=== PATIENT | female | born 1945 | race Caucasian/White ===

== ENCOUNTER 2017-02-27 14:50 | Inpatient (IN) ==
[2017-02-27] MEDS ORDERED: Naloxone 0.4 MG/ML INJ IVP PRN (17:44)
--- NOTE | 2017-02-27 17:56 | Internal Med History&Physical ---
Date of Encounter: 02/28/17 Time of Encounter: 17:54 Assessment and Plan (1) Lower gastrointestinal bleed Current visit: Yes Status: Acute Laboratory gastrointestinal bleed: 72/F Background history of atrial fibrillation, COPD, hypertension, end-stage renal disease on hemodialysis. longterm . Noted black tarry stool/axel bright red blood per rectum this morning. Was transferred to [facility]. At [facility] patient was hypotensive (systolic blood pressure 80) Received bolus of 500 mL normal saline. At the time of examination she is normotensive. Baseline hemoglobin around 10.5/hemoglobin at [facility]: 8.3 Plan: Admit as inpatient. IV PPI 40 mg every 12 hours. CBC every 6 hourly. If hemoglobin drops less than 8 then transfuse 1 packed red blood cell. Gastroenterology consulted and possible intervention tomorrow. Hold aspirin/Plavix. Hold metoprolol/Diltiazem. Patient is aware of the risk of complications of atrial fibrillation. (2) ESRD (end stage renal disease) on dialysis Current visit: No Status: Chronic Patient is known to have end-stage renal disease. She is on dialysis (Sunday/Sunday/Sunday) Dry weight: 108 kg. Plan: Patient is on different kinds of altogether 33 medications. The medications which are absolutely necessary restarted. Patient is due for her dialysis tomorrow. Case discussed with patient's communications tech. Dr. Duckworth is aware of patient's location and need for dialysis. (3) Atrial fibrillation Current visit: No Status: Acute She is known to have paroxysmal atrial fibrillation. Plan: Hold aspirin/Plavix Hold diltiazem/metoprolol. Resume amiodarone. Patient is aware of the risk of the complications secondary to atrial fibrillation. Qualifiers: Atrial fibrillation type: paroxysmal Qualified Code(s): I48.0 - Paroxysmal atrial fibrillation (4) Obesity (BMI 30-39.9) Current visit: No Status: Chronic Excess calorie (5) DVT prophylaxis Current visit: No Status: Acute Patient cannot have a pharmacological DVT prophylaxis in view of a GI bleed. EPCD. Medical decision making: This patient has a moderate to severe risk of worsening in spite of being on appropriate medication, due to underlying complicated condition Internal Medicine - H&P: HPI Chief complaint: Lower GI bleed Admitted From: Hospital to Hospital Transfer Plans for Post Hospital Care: [facility] History of present illness: PCP: [employer]: Dr Duckworth. Brief past medical history: COPD, hypertension, atrial fibrillation, anemia due to chronic kidney disease, end-stage renal disease on her dialysis (M/W/F): Dry weight: 108Kg History of present illness: Patient is a resident of a [facility] [place] [facility] [place]. The reason she is in a [place] [facility] [place] as she was not able to take care of herself. It was noted in a [place] [facility] this morning that patient had a black tarry stool. Patient also complains of a axel blood per rectum. Patient also complains of occasional dizziness. Patient denies chest pain, shortness of breath, nausea, vomiting, abdominal pain or diarrhea. [place] patient's blood pressure was in the range of 80 systolic. This was the reason she was transferred to [facility]. At [facility] she was evaluated. Her baseline hemoglobin is around 10.5. At [facility] Hb was 8.3. Patient was transferred to this hospital for further evaluation. Reason for transfer: Acute lower GI bleed. Family history: Noncontributory Past Med Surg Social Fam HX - Past Medical History Medical history: arthritis, atrial fibrillation, cancer, CHF, COPD, DVT, GERD, GI bleed, hyperlipidemia, hypertension, malignancy, osteoporosis, renal disease Psychiatric history: no psych history - Past Surgical History Surgical History: breast surgery, pacemaker/AICD, other - Social History Smoking Status: Former smoker Smokeless Tobacco Status: No Alcohol use: rarely Drug use: none - Family History Mother Living Status: Age at : 82 Cause of : diabetes Hx Family Cardiac Disorders: Yes Hx Family Respiratory Disorders: No Hx Family Cancer: Yes Hx Family GI Disorders: No Hx Family Genitourinary Disorders: No Hx Family Endocrine Disorder: No Hx Family Musculoskeletal Disorders: No Hx Family Neuromuscular Disorders: No Hx Family Neurologic Disorders: No Hx Family HEENT Disorders: No Hx Family Autoimmune Disorders: No Hx Family Reproductive Disorders: No Hx Family Psychosocial Disorders: Yes Hx Family Medical Disorders: No Internal Medicine - H&P: Meds Anastrozole [Arimidex] 1 mg PO DAILY 04/05/15 [History] Aspirin Enteric Coated [Aspirin EC] 325 mg PO DAILY 04/05/15 [History] Atorvastatin [Lipitor] 10 mg PO HS 04/05/15 [History] Calcium Acetate [Phos-LO] 2,001 mg PO TIDWM 04/05/15 [History] Cinacalcet [Sensipar] 30 mg PO DAILY 04/05/15 [History] Escitalopram [Lexapro] 10 mg PO DAILY 04/05/15 [History] Fluticasone/Salmeterol [Advair 500-50 Diskus] 1 each IH BID 04/05/15 [History] Gabapentin [Neurontin] 100 mg PO BID 04/05/15 [History] Ipratropium/Albuterol Sulfate [Combivent Respimat Inhal [place]] 1 puff IH DAILY 04/05/15 [History] Vitamin B Complex [B Complex] 1 each PO DAILY 04/05/15 [History] Sevelamer [Renvela] 800 mg PO TIDWM 09/14/15 [History] Diltiazem CD (24hr) [Cardizem CD] 120 mg PO DAILY cap.er.24h 03/01/16 [Rx] Metoprolol [Lopressor] 25 mg PO BID tablet 03/01/16 [Rx] Acetaminophen [Tylenol] 650 mg PO Q6H PRN 02/27/17 [History] Amiodarone [Cordarone] 200 mg PO DAILY 02/27/17 [History] Benzonatate [Tessalon] 100 mg PO TID PRN 02/27/17 [History] DiphenhydraMINE [Benadryl] 50 mg PO Q6H PRN 02/27/17 [History] Docusate [Colace] 200 mg PO HS 02/27/17 [History] Ferrous Sulfate 325 mg PO DAILY 02/27/17 [History] GuaiFENesin/Dextromethorphan [Tussin Dm Syrup] 5 ml PO Q4H PRN 02/27/17 [History ] Guaifenesin [Mucinex] 1,200 mg PO Q12H PRN 02/27/17 [History] Ipratropium/Albuterol Neb [Duoneb] 3 ml IH Q6HR 02/27/17 [History] Lidocaine/Prilocaine CREAM [Emla] 1 appl TP ONCE PRN 02/27/17 [History] Loratadine [Claritin] 10 mg PO DAILY 02/27/17 [History] Magnesium Hydroxide [Milk of Magnesia] 2,400 mg PO DAILY PRN 02/27/17 [History] Midodrine HCl 2.5 mg PO BID 02/27/17 [History] Nitroglycerin [Nitrostat] 0.4 mg SL Q5M PRN 02/27/17 [History] OxyCODONE Immed Rel [Roxicodone 5 MG] 5 mg PO Q4H PRN 02/27/17 [History] OxyCODONE Immed Rel [Roxicodone 5 MG] 10 mg PO Q4H PRN 02/27/17 [History] Pantoprazole Sodium [Protonix] 40 mg PO BIDWM 02/27/17 [History] Patiromer Calcium Sorbitex [Veltassa] 8.4 gm PO DAILY 02/27/17 [History] Promethazine [Phenergan] 25 mg PO Q6H PRN 02/27/17 [History] Saliva Substitute Combo No.3 [Aquoral] 2 spray MM BID 02/27/17 [History] Erythromycin Base Adverse Reaction (Mild, Verified 02/25/16 09:23) Abdominal Pain Edetate Calcium Disodium Adverse Reaction (Verified 02/27/17 19:22) See Comments ecf list Nicardipine Adverse Reaction (Verified 02/27/17 19:22) See Comments ecf list Warfarin [From Coumadin] Adverse Reaction (Verified 02/27/17 19:22) See Comments ecf list blood thinners Adverse Reaction (Mild, Uncoded 04/05/15 12:13) Nose Bleed dihydropyridine Adverse Reaction (Mild, Uncoded 04/05/15 12:13) Abdominal Pain All Systems PM: A 10-system review of systems was performed and is negative for pertinent findings except as documented above in the HPI. - Constitutional Constitutional: no chills, no fever(s), no night sweats - EENT Eyes: no change in vision, no discharge, no pain, no photophobia Ears: no ear discharge, no ear pain, no tinnitus Nose, mouth and throat: no dysphagia, no nasal discharge, no neck pain, no sore throat - Cardiovascular Cardiovascular ROS IM: no chest pain, no diaphoresis, no dyspnea, no lightheadedness, no palpitations, no syncope - Respiratory Respiratory: no cough, no dyspnea, no wheezing, no excessive phlegm production - Gastrointestinal Gastrointestinal: no abdominal pain, no diarrhea, no hematemesis, no hematochezia, no melena, no nausea, no vomiting - Genitourinary Genitourinary: no change in urinary stream, no dysuria, no flank pain, no hematuria - Musculoskeletal Musculoskeletal ROS IM: no numbness, no tingling - Integumentary Integumentary IM: no rash, no unusual bruising - Neurological Neurological ROS: no confusion, no convulsions, no focal weakness, no numbness, no tingling, no tremor(s) - Hematologic/Lymphatic Hematologic/Lymphatic: no easy bruising - Constitutional Vitals: Temp Pulse Resp BP 98.8 F 73 16 121/75 02/27/17 17:12 02/27/17 17:12 02/27/17 17:12 02/27/17 17:12 - Head Head exam: Present: atraumatic, normocephalic - Eye Eye exam: Present: PERRL, conjuntiva pink, sclera anicteric Pupils: Present: PERRL - Neck Neck exam general surgery: Present: supple, trachea midline. Absent: lymphadenopathy - Respiratory Respiratory exam: Present: CTAB. Absent: accessory muscle use, rales, rhonchi, wheezes - Cardiovascular Cardiovascular exam: Present: RRR, +S1, +S2. Absent: diastolic murmur, gallop, rubs, systolic murmur - GI/Abdominal GI/Abdominal exam: Present: normal bowel sounds, soft, no peritoneal signs. Absent: distended, tenderness - Extremities Exam Extremities exam: Present: warm, radial pulses palpable and symmetrical. Absent : calf tenderness, cyanotic, pedal edema - Neurological Exam Neurological exam: Present: CN II-XII intact, oriented X3, no focal deficits. Absent: pronater drift, facial droop, speech deficit - Skin Skin exam: Present: dry, intact Internal Med - H&P Results - Labs CBC & Chem 7: 02/28/17 13:05 02/28/17 08:45
[2017-02-27] MEDS ORDERED: Acetaminophen 325 MG TABLET PO PRN (18:10)
[2017-02-27] MEDS ORDERED: *HR* OxyCODONE/APAP 10/325 TABLET PO PRN (18:14)
[2017-02-27] MEDS: Pantoprazole 40 MG VIAL IVP SCH (18:17)
[2017-02-27] MEDS: Ondansetron 4 MG/2 ML VIAL IVP PRN (18:37)
[2017-02-27 19:31] LABS: Basophils # 0.1 K/mcL (0.0-0.2); Basophils % 0.2 %; Eosinophils % 0.1 %; Hemoglobin 8.5 g/dL (11.5-15.4); Immature Granulocytes % 1.2 % (0-4); Immature Platelets 3.4 % (1.1-6.1); Lymphocytes % 4.4 %; Mean Corpuscular HGB Conc 29.3 g/dL (31.6-35.5); Mean Corpuscular Volume 95.4 fL (83.0-100.0); Mean Platelet Volume 9.4 fL (9.4-12.4); Monocytes % 4.5 %; Neutrophils # 20.7 K/mcL (1.6-8.9); Nucleated Red Blood Cells 0.1 /100 WBC (0); Platelet Count 314 K/mcL (140-400); Red Blood Count 3.04 M/mcL (3.82-4.97); Red Cell Distribution Width 19.3 % (11.5-14.5); Segmented Neutrophils % 89.6 %
[2017-02-27] MEDS: Ipratropium/Albuterol Neb 3 ML IH SCH ×2 (20:05→23:47)
[2017-02-27] MEDS ORDERED: Gabapentin 100 MG CAPSULE PO SCH (21:00)
[2017-02-27 23:37] LABS: Albumin 2.9 g/dL (3.5-5.0); Albumin/Globulin Ratio 0.7 (1.1-2.2); Bilirubin,Total 0.6 mg/dL (0.2-1.2); Calcium 9.1 mg/dL (8.6-10.8); Globulin 4.1 g/dL (2.4-3.5)
[2017-02-27 23:38] LABS: Potassium 4.5 mEq/L (3.5-4.5)
[2017-02-28] MEDS: Ondansetron 4 MG/2 ML VIAL IVP PRN (00:24)
[2017-02-28 01:22] LABS: Hematocrit 22.7 % (35.3-44.9); Immature Platelets 4.3 % (1.1-6.1); Nucleated Red Blood Cells 0.1 /100 WBC (0)
[2017-02-28 01:25] LABS: Hemoglobin 6.7 g/dL (11.5-15.4); Mean Corpuscular HGB Conc 29.5 g/dL (31.6-35.5); Mean Corpuscular Hemoglobin 27.8 pg (28.0-33.3); Mean Corpuscular Volume 94.2 fL (83.0-100.0); Mean Platelet Volume 10.1 fL (9.4-12.4); Platelet Count 262 K/mcL (140-400); Red Blood Count 2.41 M/mcL (3.82-4.97)
[2017-02-28 01:35] LABS: Magnesium 1.4 mg/dL (1.6-2.6); Phosphorous 2.9 mg/dL (2.3-4.7)
[2017-02-28 01:36] LABS: Chol/HDL Ratio 4.7 (0-4.9)
[2017-02-28 02:57] LABS: Lymphocytes # 1.6 K/mcL (0.6-4.6); Neutrophils # 23.3 K/mcL (1.6-8.9)
[2017-02-28 02:58] LABS: Anisocytosis 2+ (Not Present); Platelet Estimate Normal (Normal)
[2017-02-28 02:59] LABS: Hypochromasia Present (Not Present); Microcytosis Present (Not Present); Polychromasia 1+ (Not Present)
[2017-02-28 03:00] LABS: Large Platelets Present (Not Present)
[2017-02-28] MEDS ORDERED: 0.9 % Sodium Chloride 500 ML IVC ONE ×4 (04:48→07:31)
[2017-02-28] MEDS: Ipratropium/Albuterol Neb 3 ML IH SCH ×5 (04:59→20:20)
[2017-02-28] MEDS ORDERED: Piperacillin/Tazobactam 3.375 GM in D5% in Water (Mini-Bag+) 100 ML IVPB SCH (06:00)
[2017-02-28] MEDS: Pantoprazole 40 MG VIAL IVP SCH (06:17)
--- NOTE | 2017-02-28 06:43 | Event Note ---
<Bianca Joiner - Last Filed: 02/28/17 06:28> Date of Encounter: 02/28/17 Time of Encounter: 05:00 I was notified by Dr. Parsons via phone that patient's Hgb drop from 8.5 (02/27/171918) to 6.7 (02/28/175) along with fever (100.8) and hypotension (96/64). Patient was seen and examined. Patient had good perfusion and is alerted and oriented x3. Patient did have melena stool in bedpan. Patient reports some worsening shortness of breath and some dizziness if she sits up. I called blood bank at that time and because patient does have antibiotic, they needs extra time to get the appropriate blood which is estimated to be available after 7 am. 500 mL of IV NS bolus was ordered. I rechecked on patient after patient finished the 500 mL bolus at ~ 6 am. Patient reports feeling very tired. Nurse checked the blood pressure manually and it's in 70s/40s range. Dr. Nunez is notified and we checked the blood pressure manually at bedside. The blood pressure is 80/40. I called blood bank again and was told it needs another 1 hour or 1 & 1/2 hours before the blood is available. Given patient's blood pressure drop despite of IV fluid, low hemoglobin (expected to be lower than 6.7) and waiting for the appropriate blood for transfusion, patient is considered high risk and will be transferred to ICU for close monitoring. 1,000 mL of NS is ordered and running. <Michele Nunez - Last Filed: 02/28/17 18:52> Date of Encounter: 02/28/[address] Gaspar and assessed patient with him. Because of hemodynamic instability and need for close monitoring, we transferred patient to ICU. I spoke with Dr. Pacheco this morning who assumed care in ICU.
[2017-02-28] MEDS ORDERED: Ondansetron 4 MG/2 ML VIAL IVP PRN (07:31)
[2017-02-28] MEDS ORDERED: Acetaminophen 325 MG TABLET PO PRN (07:31)
[2017-02-28] MEDS ORDERED: *HR* OxyCODONE/APAP 10/325 TABLET PO PRN (07:31)
[2017-02-28] MEDS ORDERED: Naloxone 0.4 MG/ML INJ IVP PRN (07:31)
[2017-02-28] MEDS ORDERED: 0.9 % Sodium Chloride 500 ML ONE (07:37)
[2017-02-28] MEDS ORDERED: Calcium Acetate 667 MG CAPSULE PO SCH (08:00)
--- NOTE | 2017-02-28 08:37 | Procedure Note ---
<Jose Geiger - Last Filed: 02/28/17 08:40> Date of procedure: 02/28/17 Procedures - Central Line Placement Right Femoral Central Line Inserted*: Yes Central Line Catheter Replacement*: No Central Line Insertion: emergent Consent Obtained: written consent Procedural Pause: verify patient name and date of , timeout performed per policy, jessee and assess the site, assemble equipment and verify supplies, perform hand hygiene Patient Placed on Monitor/Pulse Ox: Yes During the Procedure: clinician is wearing sterile gloves, cap, mask,& gown during insertion, sterile field and sterile technique are maintained, patient's face is covered with drape or mask and wearing a cap, everyone in room is wearing a mask Central Line Prep: Chlorhexidine scrub Prep the Procedure Site: apply chloraprep to the skin using a back and forth scrubbing motion, apply chloraprep for 30 seconds (upper body), 1-2 min ( femoral sites), allow prep to dry, drape the patient with a full body drape Local Anesthetic: lidocaine 1% Amount of anesthesia used (mL): 3 Ultrasound Used for Placement: Yes Central Line Lumen Inserted: triple Post Procedure: sutured in place, good blood return, all ports aspirated, flushed, capped, sterile dressing applied, guide wire removed and visualized Post Procedure X-Ray: other (not required, femoral line) Patient Tolerated Procedure: well Complications: none Name of Clinician Inserting Central Line: Dr Junior Silveira Clinician Assisting/Completing Checklist: Dr. Geiger Date: 02/28/17 Time: 08:10 <Elida Pacheco - Last Filed: 02/28/17 10:35> Pre-op diagnosis: Hypotension with GI bleed and need IV access Post-op diagnosis: same Procedure: I examined this patient and my medical decision-making was reviewed with the Resident Physician. I agree with the documented findings, disposition and treatment plan as described except to the extent set forth below. I have personally supervise placement of this central line placement. Anesthesia: local Disposition: ICU
--- NOTE | 2017-02-28 08:45 | Pulmonology Consult Note ---
<Jose Geiger - Last Filed: 02/28/17 11:00> Date of Encounter: 02/28/17 Time of Encounter: 08:45 Assessment and Plan (1) Lower gastrointestinal bleed Current Visit: Yes Status: Acute Patient has been having hematochezia and melena. She was transferred from the [facility] to [facility] for further evaluation. Patient remains hypotensive with her systolic blood pressure in the 80s. Patient has had decline in her hemoglobin and continues to have stools with blood in them. Last hemoglobin was 5.8. Patient is being transfused with 2 units of blood. GI has been consult on this patient. (2) Anemia Current Visit: No Status: Chronic Patient is currently anemic and hemoglobin continues to drop. This is likely due to a GI bleed. Gastroenterology has been consult on this patient. Hemoglobin yesterday was 8.5, this morning 6.7 and a repeat this morning was 5.8. Patient is being transfused 2 units of blood. Patient's blood pressure is currently 80s over 30s we have ordered a levophed to maintain a MAP of 60. Qualifiers: Anemia type: other cause Other causes of anemia: chronic disease, kidney (3) ESRD (end stage renal disease) on dialysis Current Visit: No Status: Chronic Patient has a history of end-stage renal disease requiring dialysis. Patient dialyzes Sunday and Sunday. Nephrology has been consulted and is seeing the patient. Spoke with nephrology and they said due to the patient being hemodynamically unstable at this time it will not dialyze today. Nephrology said that once the patient becomes hemodynamically stable they will reevaluated and dialyze when necessary. (4) Chronic a-fib Current Visit: No Status: Chronic Patient has a history of atrial fibrillation. She is currently in a sinus rhythm. We will hold the patient's amiodarone, diltiazem and metoprolol due to her blood pressure. (5) DVT prophylaxis Current Visit: No Status: Acute Due to the patient's possible GI bleed and anemia we will not start any blood thinners for DVT prophylaxis at this time. A SCDs have been ordered for this patient for DVT prophylaxis History of Present Illness Consult date: 02/28/17 Chief complaint: GI Bleed History of present illness: The patient is a 72-year-old female that states that signature and washed in her house. She was transferred to [facility] yesterday due to the patient having bright red blood in her stool. Patient states that this began around 9 AM. She had multiple bowel movements with bright red blood in them. She has been feeling weak, drained and does not feel like she wants to move. She was found to be hypotensive and had a hemoglobin of 8.3 and [facility]. She was then transferred to [facility] for further evaluation. Past Med Surg Social Fam HX - Past Medical History Medical history: arthritis, atrial fibrillation, cancer, CHF, COPD, DVT, GERD, GI bleed, hyperlipidemia, hypertension, malignancy, osteoporosis, renal disease Psychiatric history: no psych history - Past Surgical History Surgical History: breast surgery, pacemaker/AICD, other - Social History Smoking Status: Former smoker Smokeless Tobacco Status: No Alcohol use: rarely Drug use: none - Family History Mother Living Status: Age at : 82 Cause of : diabetes Hx Family Cardiac Disorders: Yes Hx Family Respiratory Disorders: No Hx Family Cancer: Yes Hx Family GI Disorders: No Hx Family Genitourinary Disorders: No Hx Family Endocrine Disorder: No Hx Family Musculoskeletal Disorders: No Hx Family Neuromuscular Disorders: No Hx Family Neurologic Disorders: No Hx Family HEENT Disorders: No Hx Family Autoimmune Disorders: No Hx Family Reproductive Disorders: No Hx Family Psychosocial Disorders: Yes Hx Family Medical Disorders: No Medications and Allergies Anastrozole [Arimidex] 1 mg PO DAILY 04/05/15 [History] Aspirin Enteric Coated [Aspirin EC] 325 mg PO DAILY 04/05/15 [History] Atorvastatin [Lipitor] 10 mg PO HS 04/05/15 [History] Calcium Acetate [Phos-LO] 2,001 mg PO TIDWM 04/05/15 [History] Cinacalcet [Sensipar] 30 mg PO DAILY 04/05/15 [History] Escitalopram [Lexapro] 10 mg PO DAILY 04/05/15 [History] Fluticasone/Salmeterol [Advair 500-50 Diskus] 1 each IH BID 04/05/15 [History] Gabapentin [Neurontin] 100 mg PO BID 04/05/15 [History] Ipratropium/Albuterol Sulfate [Combivent Respimat Inhal [place]] 1 puff IH DAILY 04/05/15 [History] Vitamin B Complex [B Complex] 1 each PO DAILY 04/05/15 [History] Sevelamer [Renvela] 800 mg PO TIDWM 09/14/15 [History] Diltiazem CD (24hr) [Cardizem CD] 120 mg PO DAILY cap.er.24h 03/01/16 [Rx] Metoprolol [Lopressor] 25 mg PO BID tablet 03/01/16 [Rx] Acetaminophen [Tylenol] 650 mg PO Q6H PRN 02/27/17 [History] Amiodarone [Cordarone] 200 mg PO DAILY 02/27/17 [History] Benzonatate [Tessalon] 100 mg PO TID PRN 02/27/17 [History] DiphenhydraMINE [Benadryl] 50 mg PO Q6H PRN 02/27/17 [History] Docusate [Colace] 200 mg PO HS 02/27/17 [History] Ferrous Sulfate 325 mg PO DAILY 02/27/17 [History] GuaiFENesin/Dextromethorphan [Tussin Dm Syrup] 5 ml PO Q4H PRN 02/27/17 [History ] Guaifenesin [Mucinex] 1,200 mg PO Q12H PRN 02/27/17 [History] Ipratropium/Albuterol Neb [Duoneb] 3 ml IH Q6HR 02/27/17 [History] Lidocaine/Prilocaine CREAM [Emla] 1 appl TP ONCE PRN 02/27/17 [History] Loratadine [Claritin] 10 mg PO DAILY 02/27/17 [History] Magnesium Hydroxide [Milk of Magnesia] 2,400 mg PO DAILY PRN 02/27/17 [History] Midodrine HCl 2.5 mg PO BID 02/27/17 [History] Nitroglycerin [Nitrostat] 0.4 mg SL Q5M PRN 02/27/17 [History] OxyCODONE Immed Rel [Roxicodone 5 MG] 5 mg PO Q4H PRN 02/27/17 [History] OxyCODONE Immed Rel [Roxicodone 5 MG] 10 mg PO Q4H PRN 02/27/17 [History] Pantoprazole Sodium [Protonix] 40 mg PO BIDWM 02/27/17 [History] Patiromer Calcium Sorbitex [Veltassa] 8.4 gm PO DAILY 02/27/17 [History] Promethazine [Phenergan] 25 mg PO Q6H PRN 02/27/17 [History] Saliva Substitute Combo No.3 [Aquoral] 2 spray MM BID 02/27/17 [History] Allergies Erythromycin Base Adverse Reaction (Mild, Verified 02/25/16 09:23) Abdominal Pain Edetate Calcium Disodium Adverse Reaction (Verified 02/27/17 19:22) See Comments ecf list Nicardipine Adverse Reaction (Verified 02/27/17 19:22) See Comments ecf list Warfarin [From Coumadin] Adverse Reaction (Verified 02/27/17 19:22) See Comments ecf list blood thinners Adverse Reaction (Mild, Uncoded 04/05/15 12:13) Nose Bleed dihydropyridine Adverse Reaction (Mild, Uncoded 04/05/15 12:13) Abdominal Pain All Systems: A 10-system review of systems was performed and is negative for pertinent findings except as documented above in the HPI. - Constitutional Constitutional: fatigue, weakness - Respiratory Respiratory: dyspnea - Gastrointestinal Gastrointestinal: hematochezia - Musculoskeletal Musculoskeletal: other Physical Examination Vital Signs: Vital Signs, Last 4 Hours Pulse Resp BP Pulse Ox 02/28/17 08:00 62 20 78/54 100 02/28/17 07:15 65 20 105/81 94 02/28/17 06:12 70/39 02/28/17 05:00 16 94 General appearance: no acute distress Eyes: nonicteric ENT: oropharynx moist Neck: supple, no lymphadenopathy, no JVD Effort: normal Auscultation: bilateral: clear Cardiovascular: regular rate and rhythm Gastrointestinal: normoactive bowel sounds, tender (Diffuse tenderness), other ( Scars on abdomen from previous abdominal surgery.) Integumentary: other (Diffuse ecchymosis on bilateral upper trapezius) Extremities: no cyanosis, no edema Musculoskeletal: no deformities normal mental status, non-focal exam mood appropriate, affect normal Results - Laboratory Findings CBC and BMP: 02/28/17 08:45 02/28/17 08:45 Abnormal lab findings: Abnormal lab results WBC 25.9 K/mcL (4.3-11.1) H 02/28/17 00:45 RBC 2.41 M/mcL (3.82-4.97) L 02/28/17 00:45 Hgb 6.7 g/dL (11.5-15.4) L D 02/28/17 00:45 Hct 22.7 % (35.3-44.9) L 02/28/17 00:45 MCH 27.8 pg (28.0-33.3) L 02/28/17 00:45 MCHC 29.5 g/dL (31.6-35.5) L 02/28/17 00:45 RDW 19.0 % (11.5-14.5) H 02/28/17 00:45 Band Neutrophils % 12.0 % (0-4) H 02/28/17 00:45 Neutrophils # 23.3 K/mcL (1.6-8.9) H 02/28/17 00:45 Nucleated RBCs/100 WBC 0.1 /100 WBC (0) H 02/28/17 00:45 Large Platelets Present (Not Present) A 02/28/17 00:45 Polychromasia 1+ (Not Present) A 02/28/17 00:45 Hypochromasia Present (Not Present) A 02/28/17 00:45 Anisocytosis 2+ (Not Present) A 02/28/17 00:45 Microcytosis Present (Not Present) A 02/28/17 00:45 Sodium 132 mEq/L (136-145) L 02/27/17 19:19 Chloride 92 mEq/L (98-109) L 02/27/17 19:19 BUN 54 mg/dL (7-20) H 02/27/17 19:19 Creatinine 4.57 mg/dL (0.57-1.11) H 02/27/17 19:19 Est GFR ( Amer) 11 (> 60) L 02/27/17 19:19 Est GFR (Non-Af Amer) 9 (> 60) L 02/27/17 19:19 Glucose 130 mg/dL (70-99) H 02/27/17 19:19 POC Glucose 120 (58-89) H 02/28/17 06:32 Magnesium 1.4 mg/dL (1.6-2.6) L 02/28/17 00:45 Albumin 2.9 g/dL (3.5-5.0) L 02/27/17 19:19 Globulin 4.1 g/dL (2.4-3.5) H 02/27/17 19:19 Albumin/Globulin Ratio 0.7 (1.1-2.2) L 02/27/17 19:19 Triglycerides 193 mg/dL (< 150) H 02/28/17 00:45 VLDL Cholesterol, Calc 39 mg/dL (< 31) H 02/28/17 00:45 HDL Cholesterol 21 mg/dL (40-59) L 02/28/17 00:45 Stool Occult Blood Positive (Negative) A 02/28/17 01:50 - Clinical Findings Intake & Output: Intake & Output 02/27/17 02/28/17 02/28/17 23:59 07:59 15:59 Intake Total 0 / 0 1000 / 1000 Output Total 0 / 0 Balance 0 / 0 1000 / 1000 Weight 109.406 kg 105.007 kg Consult Discharge Plan - Plan Referrals: Brandie Lion MD [Primary Care Provider] - <Elida Pacheco - Last Filed: 02/28/17 13:12> Date of Encounter: 02/28/17 All Systems: A 10-system review of systems was performed and is negative for pertinent findings except as documented above in the HPI. Physical Examination Vital Signs: Vital Signs, Last 4 Hours Temp Pulse Resp BP Pulse Ox 02/28/17 10:48 98.6 F 60 20 86/33 96 02/28/17 10:00 60 20 79/45 98 02/28/17 09:10 98.6 F 61 20 90/38 96 02/28/17 09:03 98.6 F 61 20 80/48 02/28/17 09:00 61 18 80/48 98 02/28/17 08:00 62 20 78/54 100 02/28/17 07:15 65 20 105/81 94 Results - Laboratory Findings CBC and BMP: 02/28/17 08:45 02/28/17 08:45 PT/INR, D-dimer PT 14.5 Seconds (9.4-12.1) H 02/28/17 08:45 Abnormal lab findings: Abnormal lab results WBC 23.1 K/mcL (4.3-11.1) H 02/28/17 08:45 RBC 2.10 M/mcL (3.82-4.97) L 02/28/17 08:45 Hgb 5.8 g/dL (11.5-15.4) L* 02/28/17 08:45 Hct 20.1 % (35.3-44.9) L 02/28/17 08:45 MCH 27.6 pg (28.0-33.3) L 02/28/17 08:45 MCHC 28.9 g/dL (31.6-35.5) L 02/28/17 08:45 RDW 19.2 % (11.5-14.5) H 02/28/17 08:45 MPV 9.3 fL (9.4-12.4) L 02/28/17 08:45 Band Neutrophils % 12.0 % (0-4) H 02/28/17 00:45 Neutrophils # 18.8 K/mcL (1.6-8.9) H 02/28/17 08:45 Monocytes # 1.7 K/mcL (0.0-1.3) H 02/28/17 08:45 Nucleated RBCs/100 WBC 0.2 /100 WBC (0) H 02/28/17 08:45 Large Platelets Present (Not Present) A 02/28/17 00:45 Polychromasia 1+ (Not Present) A 02/28/17 08:45 Hypochromasia Present (Not Present) A 02/28/17 00:45 Anisocytosis 1+ (Not Present) A 02/28/17 08:45 Microcytosis Present (Not Present) A 02/28/17 00:45 PT 14.5 Seconds (9.4-12.1) H 02/28/17 08:45 APTT 24.9 Seconds (26.0-36.0) L 02/28/17 08:45 Sodium 132 mEq/L (136-145) L 02/28/17 08:45 Chloride 95 mEq/L (98-109) L 02/28/17 08:45 BUN 70 mg/dL (7-20) H D 02/28/17 08:45 Creatinine 4.84 mg/dL (0.57-1.11) H 02/28/17 08:45 Est GFR ( Amer) 11 (> 60) L 02/28/17 08:45 Est GFR (Non-Af Amer) 9 (> 60) L 02/28/17 08:45 Glucose 110 mg/dL (70-99) H 02/28/17 08:45 POC Glucose 120 (58-89) H 02/28/17 06:32 Calcium 7.9 mg/dL (8.6-10.8) L 02/28/17 08:45 Magnesium 1.4 mg/dL (1.6-2.6) L 02/28/17 00:45 Serum Total Protein 5.0 g/dL (6.0-8.3) L D 02/28/17 08:45 Albumin 2.2 g/dL (3.5-5.0) L D 02/28/17 08:45 Albumin/Globulin Ratio 0.8 (1.1-2.2) L 02/28/17 08:45 Triglycerides 193 mg/dL (< 150) H 02/28/17 00:45 VLDL Cholesterol, Calc 39 mg/dL (< 31) H 02/28/17 00:45 HDL Cholesterol 21 mg/dL (40-59) L 02/28/17 00:45 Stool Occult Blood Positive (Negative) A 02/28/17 01:50 - Clinical Findings Intake & Output: Intake & Output 02/27/17 02/28/17 02/28/17 23:59 07:59 15:59 Intake Total 0 / 0 1000 / 1000 900 / 900 Output Total 0 / 0 Balance 0 / 0 1000 / 1000 900 / 900 Weight 109.406 kg 105.007 kg - Attending Attestation I examined this patient and my medical decision-making was reviewed with the Resident Physician. I agree with the documented findings, disposition and treatment plan as described except to the extent set forth below. Patient seen and examined. Labs, radiology, chart personally reviewed. Agree with resident's history and physical, assessment, plan with following comments: LINUX ARCHITECT: Patient follows commands, Pulmonary: Acceptable oxygenation and ventilation Cardiovascular: Patient is hypotensive this is most likely from acute blood loss and patient did not have any reliable IV access for resuscitation. Discussed with the patient about central line placement and she agreed and that was placed. Continue blood transfusion and fluid. GI: Nutrition per dietary and GI prophylaxis per routine. Patient is nothing by mouth for now and GI has been consulted for endoscopy. Heme: DVT prophylaxis per routine. Patient with acute anemia with blood loss most likely the source is GI. Check coags.. ID: No evidence of infection. Renal; end-stage renal disease and patient and nephrology has been consulted. Endorcine: blood glucose is monitored Lines: all lines checked and no evidence of infections Skin: skin care to prevent pressure ulcers per nursing routine care I spent 40 min of Critical Care time with this patient. It involved decision making of high complexity to assess, manipulate, and support vital organ system failure and/or to prevent further life threatening deterioration of the patient' s condition. The time involved in the performance of separately reportable procedures was not counted toward critical care time.
[2017-02-28 08:59] LABS: Eosinophils % 0.1 %; Monocytes % 7.2 %; Nucleated Red Blood Cells 0.2 /100 WBC (0); Red Cell Distribution Width 19.2 % (11.5-14.5)
[2017-02-28] MEDS ORDERED: 0.9 % Sodium Chloride 250 ML ONE ×2 (09:00→10:46)
[2017-02-28] MEDS ORDERED: *HR* Amiodarone 200 MG TABLET PO SCH ×2 (09:00)
[2017-02-28] MEDS ORDERED: Anastrozole 1 MG TABLET PO SCH (09:00)
[2017-02-28 09:01] LABS: Basophils % 0.1 %; Hematocrit 20.1 % (35.3-44.9); Immature Granulocytes % 1.3 % (0-4); Lymphocytes # 2.3 K/mcL (0.6-4.6); Mean Corpuscular HGB Conc 28.9 g/dL (31.6-35.5); Mean Corpuscular Hemoglobin 27.6 pg (28.0-33.3); Mean Corpuscular Volume 95.7 fL (83.0-100.0); Mean Platelet Volume 9.3 fL (9.4-12.4); Monocytes # 1.7 K/mcL (0.0-1.3); Neutrophils # 18.8 K/mcL (1.6-8.9); Platelet Count 204 K/mcL (140-400); Segmented Neutrophils % 81.3 %
[2017-02-28 09:04] LABS: INR 1.3; Prothrombin Time 14.5 Seconds (9.4-12.1)
[2017-02-28 09:06] LABS: Hemoglobin 5.8 g/dL (11.5-15.4)
[2017-02-28 09:07] LABS: Activated Partial Thrombo Time 24.9 Seconds (26.0-36.0)
[2017-02-28 09:13] LABS: Albumin/Globulin Ratio 0.8 (1.1-2.2); Bilirubin,Total 0.6 mg/dL (0.2-1.2); Calcium 7.9 mg/dL (8.6-10.8); Globulin 2.8 g/dL (2.4-3.5); Potassium 4.4 mEq/L (3.5-4.5)
[2017-02-28 09:14] LABS: Albumin 2.2 g/dL (3.5-5.0)
[2017-02-28] MEDS: Calcium Acetate 667 MG CAPSULE PO SCH ×3 (09:30→16:29)
[2017-02-28 09:31] LABS: Polychromasia 1+ (Not Present)
[2017-02-28] MEDS: Gabapentin 100 MG CAPSULE PO SCH ×2 (09:31→20:05)
[2017-02-28] MEDS: Anastrozole 1 MG TABLET PO SCH (09:31)
[2017-02-28 09:32] LABS: Anisocytosis 1+ (Not Present); Platelet Estimate Normal (Normal)
[2017-02-28] MEDS ORDERED: Potassium Chloride 40 MEQ/200 ML BAG IVPB PRN (10:52)
[2017-02-28] MEDS ORDERED: Calcium Gluconate 1,000 MG in D5% in Water 100 ML IVPB PRN (10:52)
[2017-02-28] MEDS: Pantoprazole 40 MG in 0.9 % Sodium Chloride Mini Bag 100 ML IVC SCH ×3 (10:55→20:40)
[2017-02-28] MEDS: Magnesium Sulfate 2 GM in D5% in Water 100 ML IVPB PRN (11:39)
--- NOTE | 2017-02-28 11:59 | Gastroenterology Consult Note ---
<Hiro Gutiérrez - Last Filed: 02/28/17 11:57> Date of Encounter: 02/28/17 Time of Encounter: 10:10 - Assessment and plan (1) Anemia Current Visit: No Status: Chronic Assessment and plan: Hgb 8.5 on admission and dropped to 5.8 this AM. Two units PRBC have been ordered. Continue to monitor CBC and transfuse PRBC as needed. Plan for EGD today. Qualifiers: Anemia type: unspecified type Qualified Code(s): D64.9 - Anemia, unspecified Code(s): D64.9 - Anemia, unspecified (2) Melena Current Visit: Yes Status: Acute Assessment and plan: Pt admitted with melena from ECF. Plan for EGD today to r/o esophagitis, gastritis, duodenitis, PUD, MW tear, or AVM. Keep NPO. (3) Lower gastrointestinal bleed Current Visit: Yes Status: Acute Assessment and plan: Small amount of BRBPR noted with BM. Plan for EGD today, and will consider colonoscopy. (4) Hypotension Current Visit: Yes Status: Acute Assessment and plan: Pt dropped BP to 80s overnight, and this AM SBP 80s-90s. Management per ICU. Qualifiers: Hypotension type: unspecified hypotension type Qualified Code(s): I95.9 - Hypotension, unspecified (5) ESRD (end stage renal disease) on dialysis Current Visit: No Status: Chronic - Time Spent With Patient Total time spent is greater than 50% in coordination of care (as documented) at patient's floor/unit and/or counseling patient: GI History of Present Illness - Data of Consult Patient: new to practice Consult date: 02/28/17 Requesting Physician: Nannette Howard MD - Consult Narrative Reason for consult: GI bleed History of present illness: Ms. Murphy is a 72 year old female with PMHx of arthritis, A. fib, CHF, COPD, DVT, GERD, GI bleeding, HLD, HTN, ESRD. Pt is resident of assisted in [place] and they noticed black tarry stool with some BRBPR. Pt reports BRBPR and occasional dizziness. She denies fever, chills, chest pain, SOB, abdominal pain, nausea, or diarrhea. Her baseline Hgb is around 10.5. At [facility] Hgb was 8.3 and she was noted to be hypotensive with SBP 80. She received fluid bolus and was transferred here for further evaluation. On admission here, ASA and Plavix was held and Hgb 8.5. Overnight, Hgb dropped to 6.7, she became febrile (100.8), and hypotensive 80/ 40. Repeat Hgb 5.8 this AM. She was transferred to the ICU for closer monitoring. Procedures: Colonoscopy 01/01/2013 Dr. Mcgraw: Nonbleeding internal hemorrhoids, diverticulosis. EGD 01/01/2013 Dr. Mcgraw: With mild nonspecific duodenitis NSAIDs: ASA Anticoagulation: None Past Med Surg Social Fam HX - Past Medical History Medical history: arthritis, atrial fibrillation, cancer, CHF, COPD, DVT, GERD, GI bleed, hyperlipidemia, hypertension, malignancy, osteoporosis, renal disease Psychiatric history: no psych history - Past Surgical History Surgical History: breast surgery, pacemaker/AICD, other - Social History Smoking Status: Former smoker Smokeless Tobacco Status: No Alcohol use: rarely Drug use: none - Family History Mother Living Status: Age at : 82 Cause of : diabetes Hx Family Cardiac Disorders: Yes Hx Family Respiratory Disorders: No Hx Family Cancer: Yes Hx Family GI Disorders: No Hx Family Genitourinary Disorders: No Hx Family Endocrine Disorder: No Hx Family Musculoskeletal Disorders: No Hx Family Neuromuscular Disorders: No Hx Family Neurologic Disorders: No Hx Family HEENT Disorders: No Hx Family Autoimmune Disorders: No Hx Family Reproductive Disorders: No Hx Family Psychosocial Disorders: Yes Hx Family Medical Disorders: No - Gastrointestinal Gastrointestinal: Present: as per HPI - Constitutional Constitutional: as per HPI - EENT Eyes: as per HPI Ears: Present: as per HPI Nose, mouth and throat: Present: as per HPI - Cardiovascular Cardiovascular ROS: Present: as per HPI - Respiratory Respiratory IM: Present: as per HPI - Genitourinary Genitourinary: Absent: change in color, Urinary frequency - Neurological ROS Neurological GI: Present: as per HPI - Hematologic/Lymphatic Hematologic/Lymphatic pediatric: Present: as per HPI - Musculoskeletal Musculoskeletal ROS GI: Present: as per HPI - Integumentary Integumentary GI: Present: as per HPI - Psychiatric ROS Psychiatric GI: Present: as per HPI - Endocrine Endocrine IM: Present: as per HPI - Constitutional Vitals: Temp Pulse Resp BP Pulse Ox 98.6 F 63 20 93/60 100 02/28/17 11:40 02/28/17 11:00 02/28/17 11:36 02/28/17 11:00 02/28/17 11:36 General appearance: Present: cooperative, A&O X 3, no acute distress, answers questions appropriately - Head Head exam: Present: atraumatic, normocephalic - Eye Eye exam: Present: normal appearance, sclera anicteric - ENT ENT exam: Present: mucous membranes dry - Neck Neck exam general surgery: Present: normal inspection, trachea midline - Respiratory Respiratory exam: Present: decreased breath sounds, CTAB. Absent: rales, rhonchi - Cardiovascular Cardiovascular exam: Present: RRR, +S1, +S2 - GI/Abdominal GI/Abdominal exam: Present: soft, no peritoneal signs. Absent: distended, firm , guarding, normal bowel sounds, tenderness - Rectal Rectal exam: Present: deferred - Extremities Exam Extremities exam: Present: warm - Neurological Exam Neurological exam: Present: no focal deficits - Psychiatric Psychiatric exam: Present: normal affect, normal mood - Skin Skin exam: Present: dry, intact, normal color, warm Results - Labs CBC & Chem 7: 02/28/17 08:45 02/28/17 08:45 Labs: Last Result Calcium 7.9 mg/dL (8.6-10.8) L 02/28/17 08:45 Troponin I 0.03 ng/mL (0-0.03) 02/28/17 07:01 Triglycerides 193 mg/dL (< 150) H 02/28/17 00:45 Stool Occult Blood Positive (Negative) A 02/28/17 01:50 Entire Visit Hgb 5.8 g/dL (11.5-15.4) L* 02/28/17 08:45 Hct 20.1 % (35.3-44.9) L 02/28/17 08:45 PT 14.5 Seconds (9.4-12.1) H 02/28/17 08:45 Total Bilirubin 0.6 mg/dL (0.2-1.2) 02/28/17 08:45 AST 20 Units/L (5-34) 02/28/17 08:45 ALT 13 Units/L (0-55) 02/28/17 08:45 - ABG ABG results: PT/INR, D-dimer PT 14.5 Seconds (9.4-12.1) H 02/28/17 08:45 Consult Discharge Plan - Plan Referrals: Brandie Lion MD [Primary Care Provider] - <Ashwini Guerrero - Last Filed: 02/28/17 19:43> Date of Encounter: 02/28/17 Time of Encounter: 13:00 - Time Spent With Patient Total time spent is greater than 50% in coordination of care (as documented) at patient's floor/unit and/or counseling patient: GI History of Present Illness - Data of Consult Requesting Physician: Nannette Howard MD - Consult Narrative History of present illness: Ms. Murphy is a 72 year old female - Constitutional Vitals: Temp Pulse Resp BP Pulse Ox 98.0 F 61 20 97/41 100 02/28/17 15:54 02/28/17 18:00 02/28/17 18:00 02/28/17 18:00 02/28/17 18:00 Results - Labs CBC & Chem 7: 02/28/17 13:05 02/28/17 08:45 Labs: Last Result Calcium 7.9 mg/dL (8.6-10.8) L 02/28/17 08:45 Troponin I 0.03 ng/mL (0-0.03) 02/28/17 07:01 Triglycerides 193 mg/dL (< 150) H 02/28/17 00:45 Stool Occult Blood Positive (Negative) A 02/28/17 01:50 Entire Visit Hgb 7.5 g/dL (11.5-15.4) L D 02/28/17 13:05 Hct 25.2 % (35.3-44.9) L 02/28/17 13:05 PT 14.5 Seconds (9.4-12.1) H 02/28/17 08:45 Total Bilirubin 0.6 mg/dL (0.2-1.2) 02/28/17 08:45 AST 20 Units/L (5-34) 02/28/17 08:45 ALT 13 Units/L (0-55) 02/28/17 08:45 - ABG ABG results: PT/INR, D-dimer PT 14.5 Seconds (9.4-12.1) H 02/28/17 08:45 - Attending Attestation I examined this patient and my medical decision-making was reviewed with the Resident Physician. I agree with the documented findings, disposition and treatment plan as described except to the extent set forth below.
--- NOTE | 2017-02-28 12:06 | Anesthesia Evaluation PreOp ---
Date of Encounter: 02/28/17 Time of Encounter: 12:04 - Past History Planned Operation: EGD Cardiac History: CHF, HTN, Hyperlipidemia, Arrhythmia (H/O A-Fib S/P pacemaker) , Pacemaker/ICD (Medtronic pacemaker placed 08/25/2014) Pulmonary History: Former smoker (quit 6 years ago, smoked for 45 years), COPD ( on home O2 2 l/min), JOSE Dx (does not use CPAP) FINANCIAL PROJECT MANAGER History: Denies Any Significant HX Other Medical History: Renal (ESRD on dialysis MWF), Bleeding, Diabetes Type II , GERD, Other (H/O PUD,) Anesthesia History: No Prior Anesthetic Complications, Past Anesthesia Alcohol Use: rarely Drug use: none Medications and Allergies Anastrozole [Arimidex] 1 mg PO DAILY 04/05/15 [History] Aspirin Enteric Coated [Aspirin EC] 325 mg PO DAILY 04/05/15 [History] Atorvastatin [Lipitor] 10 mg PO HS 04/05/15 [History] Calcium Acetate [Phos-LO] 2,001 mg PO TIDWM 04/05/15 [History] Cinacalcet [Sensipar] 30 mg PO DAILY 04/05/15 [History] Escitalopram [Lexapro] 10 mg PO DAILY 04/05/15 [History] Fluticasone/Salmeterol [Advair 500-50 Diskus] 1 each IH BID 04/05/15 [History] Gabapentin [Neurontin] 100 mg PO BID 04/05/15 [History] Ipratropium/Albuterol Sulfate [Combivent Respimat Inhal [place]] 1 puff IH DAILY 04/05/15 [History] Vitamin B Complex [B Complex] 1 each PO DAILY 04/05/15 [History] Sevelamer [Renvela] 800 mg PO TIDWM 09/14/15 [History] Diltiazem CD (24hr) [Cardizem CD] 120 mg PO DAILY cap.er.24h 03/01/16 [Rx] Metoprolol [Lopressor] 25 mg PO BID tablet 03/01/16 [Rx] Acetaminophen [Tylenol] 650 mg PO Q6H PRN 02/27/17 [History] Amiodarone [Cordarone] 200 mg PO DAILY 02/27/17 [History] Benzonatate [Tessalon] 100 mg PO TID PRN 02/27/17 [History] DiphenhydraMINE [Benadryl] 50 mg PO Q6H PRN 02/27/17 [History] Docusate [Colace] 200 mg PO HS 02/27/17 [History] Ferrous Sulfate 325 mg PO DAILY 02/27/17 [History] GuaiFENesin/Dextromethorphan [Tussin Dm Syrup] 5 ml PO Q4H PRN 02/27/17 [History ] Guaifenesin [Mucinex] 1,200 mg PO Q12H PRN 02/27/17 [History] Ipratropium/Albuterol Neb [Duoneb] 3 ml IH Q6HR 02/27/17 [History] Lidocaine/Prilocaine CREAM [Emla] 1 appl TP ONCE PRN 02/27/17 [History] Loratadine [Claritin] 10 mg PO DAILY 02/27/17 [History] Magnesium Hydroxide [Milk of Magnesia] 2,400 mg PO DAILY PRN 02/27/17 [History] Midodrine HCl 2.5 mg PO BID 02/27/17 [History] Nitroglycerin [Nitrostat] 0.4 mg SL Q5M PRN 02/27/17 [History] OxyCODONE Immed Rel [Roxicodone 5 MG] 5 mg PO Q4H PRN 02/27/17 [History] OxyCODONE Immed Rel [Roxicodone 5 MG] 10 mg PO Q4H PRN 02/27/17 [History] Pantoprazole Sodium [Protonix] 40 mg PO BIDWM 02/27/17 [History] Patiromer Calcium Sorbitex [Veltassa] 8.4 gm PO DAILY 02/27/17 [History] Promethazine [Phenergan] 25 mg PO Q6H PRN 02/27/17 [History] Saliva Substitute Combo No.3 [Aquoral] 2 spray MM BID 02/27/17 [History] Allergies Erythromycin Base Adverse Reaction (Mild, Verified 02/25/16 09:23) Abdominal Pain Edetate Calcium Disodium Adverse Reaction (Verified 02/27/17 19:22) See Comments ecf list Nicardipine Adverse Reaction (Verified 02/27/17 19:22) See Comments ecf list Warfarin [From Coumadin] Adverse Reaction (Verified 02/27/17 19:22) See Comments ecf list blood thinners Adverse Reaction (Mild, Uncoded 04/05/15 12:13) Nose Bleed dihydropyridine Adverse Reaction (Mild, Uncoded 04/05/15 12:13) Abdominal Pain - Meds/Allergy Pre-op Review Medications Reviewed: Yes Allergies Reviewed: Yes Beta Blockers on Current Med List: Yes Anesthesia Results - Labs 02/28/17 08:45 02/28/17 08:45 - Imaging EKG: report reviewed (09/15/2015 A-Fib, borderline RAD, moderate IV conduction delay, minimal ST depression) Additional studies: 09/14/2015 Echo technically sub-optimal due to poor echocardiographic windows LVEF 55% grossly normal LV structure and function indeterminate diastolic function mild-moderate pulmonary HTN estimated RVSP is 45 mmHg no obvious significant valvular dysfunction device lead was visualized in RA and RV 08/13/2014 Echo Impressions: Normal LV systolic function, LVEF 55-60%. Mild concentric left ventricular hypertrophy. Indeterminate diastolic function. Normal right ventricular size with mildly decreased RV systolic function. Moderately dilated left atrium. Moderate tricuspid regurgitation. Mild-moderate pulmonary hypertension. Estimated RVSP is 48 mmHg. Anesthesia Exam O2 Sat Height 1.73 m Weight 105.007 kg Weight 105.007 kg Weight 109.406 kg Weight 110.6 kg O2 Sat by Pulse Oximetry 100 O2 Sat by Pulse Oximetry 100 O2 Sat by Pulse Oximetry 98 O2 Sat by Pulse Oximetry 96 O2 Sat by Pulse Oximetry 98 O2 Sat by Pulse Oximetry 96 O2 Sat by Pulse Oximetry 98 O2 Sat by Pulse Oximetry 100 O2 Sat by Pulse Oximetry 94 O2 Sat by Pulse Oximetry 94 O2 Sat by Pulse Oximetry 94 O2 Sat by Pulse Oximetry 97 O2 Sat by Pulse Oximetry 96 O2 Sat by Pulse Oximetry 96 O2 Sat by Pulse Oximetry 96 Vital Signs Temp Pulse Resp BP 98.8 F 73 16 121/75 02/27/17 17:12 02/27/17 17:12 02/27/17 17:12 02/27/17 17:12 Blood Glucose* 111 Height: 5'8''/1.73 m Weight: 231 lbs/105 kg NPO (# of Hours): 8 Pain Scale: 0 Pain Scale Used: Numeric (1 - 10) - HEENT Pupil (Motor): EOMI Mallampati: II Teeth: Normal Oral Opening: Greater than 3 - FINANCIAL PROJECT MANAGER LOC: Oriented FINANCIAL PROJECT MANAGER Motor: Normal RUE, Normal LUE, Normal RLE, Normal LLE, Normal Face FINANCIAL PROJECT MANAGER Sensory: Normal: RUE, LUE, Face, Deficit: RLE, LLE - Cardiac Rhythm: Regular Murmur: None - Pulmonary Breath Sounds: bilateral Clear Respiratory Effort: Symmetrical Anesthesia Assess/Plan ASA Score: 4 Modified Houston Scale for Level of Consciousness: Cooperative, oriented, and tranquil Anesthetic Plan: MAC Monitoring Plan: Standard Monitors Recovery Plan: ICU
[2017-02-28] MEDS ORDERED: *HR* Etomidate 40 MG/20 ML VIAL IVP ONE (12:29)
[2017-02-28] MEDS ORDERED: Lidocaine -MPF 2% 2 ML VIAL ONE (12:29)
--- NOTE | 2017-02-28 13:05 | Nephrology Consult Note ---
Date of Encounter: 02/28/17 Time of Encounter: 11:15 Assessment and Plan (1) ESRD (end stage renal disease) on dialysis Status: Chronic Will hold off on HD till hemodynamics stabilized given ongoing bleed Lytes stable No signs of volume overload at the moment but will monitor closely especially with transfusions of pRBCs (2) Lower gastrointestinal bleed Status: Acute Agree with urgent GI workup Agree with transfusion pRBCs as needed History of Present Illness - Reason for Consult Consult date: 02/28/17 end stage renal disease Requesting physician: Jose Geiger - History of Present Illness 72 y o female with HTN, Afib, remote GI bleed history and ESRD on HD Mon-sun- sun at [facility] in [facility] admitted as a transfer from [facility] where she presented yesterday with blood in stool. Renal consulted fro management of her dialysis. Her hgb noted this am at 5.8 with BP readings in the 80s systolic. Pt seen and examined very weak and anxious awaiting GI workup with endoscopy planned. She denied any SOB and did not have visible signs such as LE edema. Past Med Surg Social Fam HX - Past Medical History Medical history: arthritis, atrial fibrillation, cancer, CHF, COPD, DVT, GERD, GI bleed, hyperlipidemia, hypertension, malignancy, osteoporosis, renal disease Psychiatric history: no psych history - Past Surgical History Surgical History: breast surgery, pacemaker/AICD, other - Social History Smoking Status: Former smoker Smokeless Tobacco Status: No Alcohol use: rarely Drug use: none - Family History Mother Living Status: Age at : 82 Cause of : diabetes Hx Family Cardiac Disorders: Yes Hx Family Respiratory Disorders: No Hx Family Cancer: Yes Hx Family GI Disorders: No Hx Family Genitourinary Disorders: No Hx Family Endocrine Disorder: No Hx Family Musculoskeletal Disorders: No Hx Family Neuromuscular Disorders: No Hx Family Neurologic Disorders: No Hx Family HEENT Disorders: No Hx Family Autoimmune Disorders: No Hx Family Reproductive Disorders: No Hx Family Psychosocial Disorders: Yes Hx Family Medical Disorders: No Medications and Allergies Anastrozole [Arimidex] 1 mg PO DAILY 04/05/15 [History] Aspirin Enteric Coated [Aspirin EC] 325 mg PO DAILY 04/05/15 [History] Atorvastatin [Lipitor] 10 mg PO HS 04/05/15 [History] Calcium Acetate [Phos-LO] 2,001 mg PO TIDWM 04/05/15 [History] Cinacalcet [Sensipar] 30 mg PO DAILY 04/05/15 [History] Escitalopram [Lexapro] 10 mg PO DAILY 04/05/15 [History] Fluticasone/Salmeterol [Advair 500-50 Diskus] 1 each IH BID 04/05/15 [History] Gabapentin [Neurontin] 100 mg PO BID 04/05/15 [History] Ipratropium/Albuterol Sulfate [Combivent Respimat Inhal [place]] 1 puff IH DAILY 04/05/15 [History] Vitamin B Complex [B Complex] 1 each PO DAILY 04/05/15 [History] Sevelamer [Renvela] 800 mg PO TIDWM 09/14/15 [History] Diltiazem CD (24hr) [Cardizem CD] 120 mg PO DAILY cap.er.24h 03/01/16 [Rx] Metoprolol [Lopressor] 25 mg PO BID tablet 03/01/16 [Rx] Acetaminophen [Tylenol] 650 mg PO Q6H PRN 02/27/17 [History] Amiodarone [Cordarone] 200 mg PO DAILY 02/27/17 [History] Benzonatate [Tessalon] 100 mg PO TID PRN 02/27/17 [History] DiphenhydraMINE [Benadryl] 50 mg PO Q6H PRN 02/27/17 [History] Docusate [Colace] 200 mg PO HS 02/27/17 [History] Ferrous Sulfate 325 mg PO DAILY 02/27/17 [History] GuaiFENesin/Dextromethorphan [Tussin Dm Syrup] 5 ml PO Q4H PRN 02/27/17 [History ] Guaifenesin [Mucinex] 1,200 mg PO Q12H PRN 02/27/17 [History] Ipratropium/Albuterol Neb [Duoneb] 3 ml IH Q6HR 02/27/17 [History] Lidocaine/Prilocaine CREAM [Emla] 1 appl TP ONCE PRN 02/27/17 [History] Loratadine [Claritin] 10 mg PO DAILY 02/27/17 [History] Magnesium Hydroxide [Milk of Magnesia] 2,400 mg PO DAILY PRN 02/27/17 [History] Midodrine HCl 2.5 mg PO BID 02/27/17 [History] Nitroglycerin [Nitrostat] 0.4 mg SL Q5M PRN 02/27/17 [History] OxyCODONE Immed Rel [Roxicodone 5 MG] 5 mg PO Q4H PRN 02/27/17 [History] OxyCODONE Immed Rel [Roxicodone 5 MG] 10 mg PO Q4H PRN 02/27/17 [History] Pantoprazole Sodium [Protonix] 40 mg PO BIDWM 02/27/17 [History] Patiromer Calcium Sorbitex [Veltassa] 8.4 gm PO DAILY 02/27/17 [History] Promethazine [Phenergan] 25 mg PO Q6H PRN 02/27/17 [History] Saliva Substitute Combo No.3 [Aquoral] 2 spray MM BID 02/27/17 [History] 3 Allergy/AdvReac Type Severity Reaction Status Date / Time Erythromycin Base AdvReac Mild Abdominal Verified 02/25/16 09:23 Pain Edetate Calcium Disodium AdvReac See Verified 02/27/17 19:22 Comments Nicardipine AdvReac See Verified 02/27/17 19:22 Comments Warfarin [From Coumadin] AdvReac See Verified 02/27/17 19:22 Comments blood thinners AdvReac Mild Nose Bleed Uncoded 04/05/15 12:13 dihydropyridine AdvReac Mild Abdominal Uncoded 04/05/15 12:13 Pain Review of Systems All Systems: reviewed and no additional remarkable complaints except as stated ( 10 systems reviewed with pertinents noted in HPI) Exam - Vital Signs Vital signs: Initial Vital Signs Temp Pulse Resp BP 98.8 F 73 16 121/75 02/27/17 17:12 02/27/17 17:12 02/27/17 17:12 02/27/17 17:12 Vital Signs - Last 8 Hours Temp Pulse Resp BP Pulse Ox 02/28/17 12:00 60 20 87/42 100 02/28/17 11:40 98.6 F 02/28/17 11:36 20 100 02/28/17 11:00 63 20 93/60 100 02/28/17 10:50 98.6 F 60 20 83/36 98 02/28/17 10:48 98.6 F 60 20 86/33 96 02/28/17 10:00 60 20 79/45 98 02/28/17 09:10 98.6 F 61 20 90/38 96 02/28/17 09:03 98.6 F 61 20 80/48 02/28/17 09:00 61 18 80/48 98 02/28/17 08:00 62 20 78/54 100 02/28/17 07:15 65 20 105/81 94 02/28/17 06:12 70/39 Intake and Output 02/27/17 02/28/17 02/28/17 23:59 07:59 15:59 Intake Total 0 / 0 1000 / 1000 1200 / 1200 Output Total 0 / 0 Balance 0 / 0 1000 / 1000 1200 / 1200 Intake: IV Fluids 1000 / 1000 0.9 % Sodium Chloride 500 1000 / 1000 ML @ 1875 mls/hr IVC . Q16M ONE Rx#:[id number] Oral 0 / 0 Blood Product 1200 / 1200 Rbcs Leuko Poor As-3 Ph 600 / 600 Unit [id number] Rbcs Leuko Poor As-3 Ph 600 / 600 Unit [id number] Output: Urine 0 / 0 Other: Stool Size Copious Small Stool Consistency loose soft Stool Characteristics Tarry Pasty Stool Color Black Dark Red Blood Dark Red Blood # Bowel Movements 1 2 Weight 109.406 kg 105.007 kg Blood Glucose* 120 111 Patient Weight 02/28/17 23:59 Weight 105.007 kg - General Appearance General appearance: chronically ill, fatigue EENT: ATNC, mucous membranes dry Neck: no JVD, supple Respiratory: clear (ant bilat) Cardiology: no edema, normal S1, normal S2 - Dialysis Access Dialysis Vascular Access: Arteriovenous Fistula thrill: Yes bruit: Yes Gastrointestinal: tenderness (mild to palp, diffuse), no guarding Integumentary: warm and dry Neurologic: no focal deficit Musculoskeletal: no deformities Psychiatric: mood/affect appropriate Results - Lab Results 03/09/17 18:45 03/09/17 15:16 Most recent lab results Calcium 7.9 mg/dL (8.6-10.8) L 02/28/17 08:45 Phosphorus 2.9 mg/dL (2.3-4.7) 02/28/17 00:45 Magnesium 1.4 mg/dL (1.6-2.6) L 02/28/17 00:45 Consult Discharge Plan - Plan Referrals: Brandie Lion MD [Primary Care Provider] - 03/14/17 9:15 am ()
[2017-02-28 13:15] LABS: Basophils % 0.2 %; Eosinophils % 0.1 %; Hematocrit 25.2 % (35.3-44.9); Hemoglobin 7.5 g/dL (11.5-15.4); Immature Granulocytes % 1.9 % (0-4); Lymphocytes % 9.1 %; Mean Corpuscular HGB Conc 29.8 g/dL (31.6-35.5); Mean Corpuscular Hemoglobin 27.1 pg (28.0-33.3); Mean Platelet Volume 9.6 fL (9.4-12.4); Monocytes # 1.6 K/mcL (0.0-1.3); Monocytes % 7.6 %; Neutrophils # 17.6 K/mcL (1.6-8.9); Nucleated Red Blood Cells 0.2 /100 WBC (0); Platelet Count 189 K/mcL (140-400); Red Blood Count 2.77 M/mcL (3.82-4.97); Red Cell Distribution Width 19.9 % (11.5-14.5); Segmented Neutrophils % 81.1 %
[2017-02-28 13:19] LABS: Ionized Calcium 1.02 mmol/L (1.15-1.35)
[2017-02-28 13:27] LABS: Magnesium 2.1 mg/dL (1.6-2.6); Phosphorous 3.4 mg/dL (2.3-4.7)
[2017-02-28] MEDS: 0.9 % Sodium Chloride 1,000 ML IVC SCH (13:28)
[2017-02-28] MEDS ORDERED: Ondansetron 4 MG/2 ML VIAL ONE (13:35)
[2017-02-28] MEDS ORDERED: SODIUM CHLORIDE 0.9% IVPB SCH (14:09)
[2017-02-28] MEDS ORDERED: ERYTHROMYCIN LACTOBIONATE IVPB SCH (14:09)
[2017-02-28] MEDS: Metoclopramide 10 MG/2 ML VIAL IVP SCH ×3 (14:33→23:11)
[2017-02-28] MEDS: Piperacillin/Tazobactam 3.375 GM in D5% in Water (Mini-Bag+) 100 ML IVPB SCH (17:51)
[2017-02-28] MEDS ORDERED: Pantoprazole 40 MG VIAL IVP SCH (18:00)
[2017-02-28 19:56] LABS: Basophils % 0.2 %; Eosinophils # 0.1 K/mcL (0.0-0.6); Eosinophils % 0.3 %; Hematocrit 26.5 % (35.3-44.9); Hemoglobin 8.1 g/dL (11.5-15.4); Immature Granulocytes % 2.6 % (0-4); Lymphocytes # 2.2 K/mcL (0.6-4.6); Lymphocytes % 9.9 %; Mean Corpuscular HGB Conc 30.6 g/dL (31.6-35.5); Mean Corpuscular Hemoglobin 27.6 pg (28.0-33.3); Mean Corpuscular Volume 90.1 fL (83.0-100.0); Mean Platelet Volume 9.5 fL (9.4-12.4); Monocytes # 1.5 K/mcL (0.0-1.3); Monocytes % 6.6 %; Nucleated Red Blood Cells 0.2 /100 WBC (0); Platelet Count 184 K/mcL (140-400); Red Blood Count 2.94 M/mcL (3.82-4.97); Red Cell Distribution Width 20.7 % (11.5-14.5); Segmented Neutrophils % 80.4 %
[2017-02-28] MEDS: Acetaminophen IV 1,000 MG/100 ML INFUS..BTL IVPB PRN (20:04)
[2017-02-28] MEDS: Norepinephrine 4 MG in D5% in Water 250 ML IVC SCH (20:54)
[2017-03-01] MEDS: Ipratropium/Albuterol Neb 3 ML IH SCH ×7 (00:32→23:20)
[2017-03-01 01:41] LABS: Hematocrit 22.4 % (35.3-44.9)
[2017-03-01 01:43] LABS: Hemoglobin 6.8 g/dL (11.5-15.4)
[2017-03-01] MEDS: Pantoprazole 40 MG in 0.9 % Sodium Chloride Mini Bag 100 ML IVC SCH ×5 (01:59→23:23)
[2017-03-01] MEDS ORDERED: 0.9 % Sodium Chloride 250 ML ONE (02:24)
[2017-03-01 04:22] LABS: Basophils % 0.2 %; Eosinophils # 0.1 K/mcL (0.0-0.6); Eosinophils % 0.4 %; Hematocrit 24.5 % (35.3-44.9); Hemoglobin 7.5 g/dL (11.5-15.4); Immature Granulocytes % 3.6 % (0-4); Lymphocytes # 1.6 K/mcL (0.6-4.6); Lymphocytes % 8.7 %; Mean Corpuscular HGB Conc 30.6 g/dL (31.6-35.5); Mean Corpuscular Hemoglobin 27.8 pg (28.0-33.3); Mean Corpuscular Volume 90.7 fL (83.0-100.0); Mean Platelet Volume 9.8 fL (9.4-12.4); Monocytes # 1.4 K/mcL (0.0-1.3); Monocytes % 7.7 %; Neutrophils # 14.6 K/mcL (1.6-8.9); Nucleated Red Blood Cells 0.2 /100 WBC (0); Platelet Count 177 K/mcL (140-400); Red Cell Distribution Width 20.5 % (11.5-14.5); Segmented Neutrophils % 79.4 %
[2017-03-01 04:30] LABS: Magnesium 1.9 mg/dL (1.6-2.6); Potassium 4.2 mEq/L (3.5-4.5)
[2017-03-01 05:24] LABS: INR 1.3; Prothrombin Time 14.1 Seconds (9.4-12.1)
[2017-03-01 05:27] LABS: Activated Partial Thrombo Time 25.4 Seconds (26.0-36.0)
[2017-03-01] MEDS: Metoclopramide 10 MG/2 ML VIAL IVP SCH ×2 (06:08→12:35)
[2017-03-01] MEDS: Piperacillin/Tazobactam 3.375 GM in D5% in Water (Mini-Bag+) 100 ML IVPB SCH (06:08)
[2017-03-01] MEDS: Budesonide/Formoterol 160/4.5 MDI IH SCH ×2 (07:39→19:38)
[2017-03-01] MEDS: Anastrozole 1 MG TABLET PO SCH (08:09)
[2017-03-01] MEDS: Gabapentin 100 MG CAPSULE PO SCH ×2 (08:11→19:38)
[2017-03-01] MEDS: Calcium Acetate 667 MG CAPSULE PO SCH ×3 (08:12→16:14)
[2017-03-01] MEDS: *HR* Morphine 2 MG/ML SYRINGE IVP PRN ×3 (08:43→23:26)
--- NOTE | 2017-03-01 09:19 | Pulmonology Progress Note ---
<Jose Geiger - Last Filed: 03/01/17 16:05> Date of Encounter: 03/01/17 Time of Encounter: 09:16 Assessment and Plan (1) Lower gastrointestinal bleed Current Visit: Yes Status: Acute Patient has been having hematochezia and melena prior to admission. She normally stays at a care facility and was brought [facility] and was then transferred to [facility] for further evaluation. Patient received 2 units of blood yesterday and had a drop her hemoglobin this morning and received another 2 units. Most recent hemoglobin was 7.5 and we will continue to follow her hemoglobin. Patient is currently on a Protonix drip and Reglan. GI has been consult on this patient and did not EGD yesterday which was inconclusive. There was a large amount of blood in the stomach which made it difficult to visualize everything. They will repeat an EGD today. (2) Anemia Current Visit: No Status: Chronic Patient is currently anemic and hemoglobin continues to fluctuate. This is likely due to a GI bleed. Gastroenterology has been consult on this patient. Patient received 2 units of blood yesterday. Initial hemoglobin this morning was 6.8 and was transfused 1 unit and labs were repeated showing a hemoglobin of 7.5 and the second unit has been given. Follow-up hemoglobin will be drawn. We will continue to follow this patient's hemoglobin. GI will do a repeat EGD today to look for a source of the bleeding. Qualifiers: Anemia type: due to chronic kidney disease Chronic kidney disease stage: on chronic dialysis Qualified Code(s): N18.6 - End stage renal disease; D63.1 - Anemia in chronic kidney disease; Z99.2 - Dependence on renal dialysis (3) Hypotension Current Visit: Yes Status: Acute Patient is currently hypotensive with a blood pressure in the 90s over 40s. Our goal is to maintain a map greater than 60. We have ordered Levophed but had not started it due to patient maintaining her current blood pressure and MAP. We are limiting the amount of fluid we are giving due to the patient not producing any urine and having end-stage renal disease requiring dialysis. Qualifiers: Hypotension type: unspecified hypotension type Qualified Code(s): I95.9 - Hypotension, unspecified (4) ESRD (end stage renal disease) on dialysis Current Visit: No Status: Chronic Patient has a history of end-stage renal disease requiring dialysis. Patient does not make any urine. Nephrology has been consult and is seeing the patient. Nephrology will hold off on dialysis until the patient is hemodynamically stable. (5) Chronic a-fib Current Visit: No Status: Chronic Patient has a history of chronic nature for ablation. She is currently in sinus rhythm. We will hold the patient's amiodarone, diltiazem and metoprolol due to her blood pressure. (6) DVT prophylaxis Current Visit: No Status: Acute Due to the patient's possible GI bleed and anemia we will not start any blood thinners for DVT prophylaxis at this time. SCDs have been ordered for this patient for DVT prophylaxis. Subjective Principal diagnosis: GI Bleed Interval history: Patient states that she is doing okay this morning but is still having some lower abdominal pain. Patient did well overnight. Her hemoglobin did drop requiring transfusion of 2 units of blood this morning. Otherwise nursing states that she did well overnight. Objective PUL Vital signs: Last Vital Signs Temp 97.9 F 03/01/17 08:00 Pulse 66 03/01/17 08:00 Resp 16 03/01/17 08:00 BP 99/40 03/01/17 08:00 Pulse Ox 100 03/01/17 08:00 General appearance: no acute distress Eyes: nonicteric ENT: oropharynx moist Neck: supple, no lymphadenopathy, no JVD Effort: normal Auscultation: left: wheezes (Mild), right: clear Cardiovascular: regular rate and rhythm Gastrointestinal: hypoactive bowel sounds, soft, tender (Diffuse tenderness), other (Scar from previous abdominal surgery) Integumentary: other (Diffuse ecchymosis bilateral upper extremities) Extremities: no cyanosis, no edema Musculoskeletal: no deformities normal mental status, non-focal exam mood appropriate, affect normal Results - Laboratory Findings CBC and BMP: 03/01/17 10:00 03/01/17 04:06 PT/INR, D-dimer PT 14.1 Seconds (9.4-12.1) H 03/01/17 04:06 Abnormal lab findings: Abnormal lab results WBC 18.4 K/mcL (4.3-11.1) H 03/01/17 04:06 RBC 2.70 M/mcL (3.82-4.97) L 03/01/17 04:06 Hgb 7.5 g/dL (11.5-15.4) L 03/01/17 04:06 Hct 24.5 % (35.3-44.9) L 03/01/17 04:06 MCH 27.8 pg (28.0-33.3) L 03/01/17 04:06 MCHC 30.6 g/dL (31.6-35.5) L 03/01/17 04:06 RDW 20.5 % (11.5-14.5) H 03/01/17 04:06 Band Neutrophils % 12.0 % (0-4) H 02/28/17 00:45 Neutrophils # 14.6 K/mcL (1.6-8.9) H 03/01/17 04:06 Monocytes # 1.4 K/mcL (0.0-1.3) H 03/01/17 04:06 Nucleated RBCs/100 WBC 0.2 /100 WBC (0) H 03/01/17 04:06 Large Platelets Present (Not Present) A 02/28/17 00:45 Polychromasia 1+ (Not Present) A 02/28/17 08:45 Hypochromasia Present (Not Present) A 02/28/17 00:45 Anisocytosis 1+ (Not Present) A 02/28/17 08:45 Microcytosis Present (Not Present) A 02/28/17 00:45 PT 14.1 Seconds (9.4-12.1) H 03/01/17 04:06 APTT 25.4 Seconds (26.0-36.0) L 03/01/17 04:06 Sodium 129 mEq/L (136-145) L 03/01/17 04:06 Chloride 94 mEq/L (98-109) L 03/01/17 04:06 BUN 85 mg/dL (7-20) H 03/01/17 04:06 Creatinine 5.44 mg/dL (0.57-1.11) H 03/01/17 04:06 Est GFR ( Amer) 9 (> 60) L 03/01/17 04:06 Est GFR (Non-Af Amer) 8 (> 60) L 03/01/17 04:06 POC Glucose 113 (58-89) H 02/28/17 20:08 Calcium 8.0 mg/dL (8.6-10.8) L 03/01/17 04:06 Ionized Calcium 1.02 mmol/L (1.15-1.35) L 02/28/17 13:05 Serum Total Protein 5.0 g/dL (6.0-8.3) L D 02/28/17 08:45 Albumin 2.2 g/dL (3.5-5.0) L D 02/28/17 08:45 Albumin/Globulin Ratio 0.8 (1.1-2.2) L 02/28/17 08:45 Triglycerides 193 mg/dL (< 150) H 02/28/17 00:45 VLDL Cholesterol, Calc 39 mg/dL (< 31) H 02/28/17 00:45 HDL Cholesterol 21 mg/dL (40-59) L 02/28/17 00:45 Stool Occult Blood Positive (Negative) A 02/28/17 01:50 - Microbiology Findings Microbiology Findings: Microbiology, Last 48 Hours 02/28/17 07:01 Blood Culture - Preliminary Peripheral Venipuncture No growth. 02/28/17 07:01 Blood Culture - Preliminary Peripheral Venipuncture No growth. - Clinical Findings Intake & Output: Intake & Output 02/28/17 03/01/17 03/01/17 23:59 07:59 15:59 Intake Total 300 / 300 533 / 533 Output Total 0 / 0 0 / 0 Balance 300 / 300 533 / 533 Weight 114.15 kg Consult Discharge Plan - Plan Referrals: Brandie Lion MD [Primary Care Provider] - <Eldia Pacheco - Last Filed: 03/01/17 16:37> Date of Encounter: 03/01/17 Objective PUL Vital signs: Last Vital Signs Temp 97.8 F 03/01/17 12:00 Pulse 66 03/01/17 16:00 Resp 24 03/01/17 16:00 BP 105/57 03/01/17 16:00 Pulse Ox 100 03/01/17 16:00 Results - Laboratory Findings CBC and BMP: 03/01/17 16:00 03/01/17 04:06 PT/INR, D-dimer PT 14.1 Seconds (9.4-12.1) H 03/01/17 04:06 Abnormal lab findings: Abnormal lab results WBC 18.4 K/mcL (4.3-11.1) H 03/01/17 04:06 RBC 2.70 M/mcL (3.82-4.97) L 03/01/17 04:06 Hgb 8.8 g/dL (11.5-15.4) L 03/01/17 16:00 Hct 28.0 % (35.3-44.9) L 03/01/17 16:00 MCH 27.8 pg (28.0-33.3) L 03/01/17 04:06 MCHC 30.6 g/dL (31.6-35.5) L 03/01/17 04:06 RDW 20.5 % (11.5-14.5) H 03/01/17 04:06 Band Neutrophils % 12.0 % (0-4) H 02/28/17 00:45 Neutrophils # 14.6 K/mcL (1.6-8.9) H 03/01/17 04:06 Monocytes # 1.4 K/mcL (0.0-1.3) H 03/01/17 04:06 Nucleated RBCs/100 WBC 0.2 /100 WBC (0) H 03/01/17 04:06 Large Platelets Present (Not Present) A 02/28/17 00:45 Polychromasia 1+ (Not Present) A 02/28/17 08:45 Hypochromasia Present (Not Present) A 02/28/17 00:45 Anisocytosis 1+ (Not Present) A 02/28/17 08:45 Microcytosis Present (Not Present) A 02/28/17 00:45 PT 14.1 Seconds (9.4-12.1) H 03/01/17 04:06 APTT 25.4 Seconds (26.0-36.0) L 03/01/17 04:06 Sodium 129 mEq/L (136-145) L 03/01/17 04:06 Chloride 94 mEq/L (98-109) L 03/01/17 04:06 BUN 85 mg/dL (7-20) H 03/01/17 04:06 Creatinine 5.44 mg/dL (0.57-1.11) H 03/01/17 04:06 Est GFR ( Amer) 9 (> 60) L 03/01/17 04:06 Est GFR (Non-Af Amer) 8 (> 60) L 03/01/17 04:06 POC Glucose 113 (58-89) H 02/28/17 20:08 Calcium 8.0 mg/dL (8.6-10.8) L 03/01/17 04:06 Ionized Calcium 1.02 mmol/L (1.15-1.35) L 02/28/17 13:05 Iron 24 mcg/dL (50-170) L 03/01/17 11:25 Transferrin 116 mg/dL (180-382) L 03/01/17 11:25 Ferritin 9740 ng/ml (5-204) H 03/01/17 11:25 Serum Total Protein 5.0 g/dL (6.0-8.3) L D 02/28/17 08:45 Albumin 2.2 g/dL (3.5-5.0) L D 02/28/17 08:45 Albumin/Globulin Ratio 0.8 (1.1-2.2) L 02/28/17 08:45 Triglycerides 193 mg/dL (< 150) H 02/28/17 00:45 VLDL Cholesterol, Calc 39 mg/dL (< 31) H 02/28/17 00:45 HDL Cholesterol 21 mg/dL (40-59) L 02/28/17 00:45 Stool Occult Blood Positive (Negative) A 02/28/17 01:50 - Microbiology Findings Microbiology Findings: Microbiology, Last 48 Hours 02/28/17 07:01 Blood Culture - Preliminary Peripheral Venipuncture No growth. 02/28/17 07:01 Blood Culture - Preliminary Peripheral Venipuncture No growth. - Clinical Findings Intake & Output: Intake & Output 03/01/17 03/01/17 03/01/17 07:59 15:59 23:59 Intake Total 533 / 533 100 / 100 100 / 100 Output Total 0 / 0 Balance 533 / 533 100 / 100 100 / 100 Weight 114.15 kg - Attending Attestation I examined this patient and my medical decision-making was reviewed with the Resident Physician. I agree with the documented findings, disposition and treatment plan as described except to the extent set forth below. Patient seen and examined. Labs, radiology, chart personally reviewed. Agree with resident's history and physical, assessment, plan with following comments: POWER SAW OPERATOR: Patient follows commands, Pulmonary: Acceptable oxygenation and ventilation Cardiovascular: stable and improvement in blood pressure GI: Nutrition per dietary and GI prophylaxis per routine. Booking Police Officer is following, and patient is on Protonix drip. Patient had blood transfusion. Heme: DVT prophylaxis per routine ID: We will stop antibiotics if there is no strong evidence of infection Renal; conditioning yard supervisor is following Endorcine: blood glucose is monitored Lines: all lines checked and no evidence of infections Skin: skin care to prevent pressure ulcers per nursing routine care Patient needs to stay in ICU until her underlying disease.get treated and monitor H&H closely.
[2017-03-01 10:09] LABS: Hematocrit 27.1 % (35.3-44.9); Hemoglobin 8.5 g/dL (11.5-15.4)
[2017-03-01 11:58] LABS: % Iron Saturation 15 % (15-50); Iron 24 mcg/dL (50-170); Transferrin 116 mg/dL (180-382)
[2017-03-01] MEDS: Norepinephrine 4 MG in D5% in Water 250 ML IVC SCH (12:32)
[2017-03-01 12:50] LABS: Ferritin 9740 ng/ml (5-204)
--- NOTE | 2017-03-01 15:28 | Nephrology Progress Note ---
Date of Encounter: 03/01/17 Time of Encounter: 11:40 - Assessment and Plan (1) ESRD (end stage renal disease) on dialysis Current Visit: No Status: Chronic Will continue to hold HD till hemodynamics stabilized Lytes stable Will obtain CXR to assess volume status (2) Lower gastrointestinal bleed Current Visit: Yes Status: Acute Per GI regarding workup Transfusion parameters per primary team Subjective Principal diagnosis: GI Bleed Interval history: Pt seen and examined feeling fatigued. She has required more transfusion pRBCs today. s/p EGD yesterday with another planned today. BP redaings still in 80- 90s systolic Objective - Vital Signs Vital signs: Vital Signs Temp Pulse Resp BP Pulse Ox 03/01/17 14:00 64 20 90/41 100 03/01/17 13:00 64 20 90/46 99 03/01/17 12:00 97.8 F 67 20 90/46 99 03/01/17 11:58 101/73 03/01/17 11:30 97.8 F 03/01/17 11:19 16 98 03/01/17 11:00 66 20 90/34 99 03/01/17 10:00 66 20 94/46 98 03/01/17 09:00 69 20 92/36 99 03/01/17 08:00 97.9 F 66 16 99/40 100 03/01/17 07:53 97.9 F 03/01/17 07:42 16 100 03/01/17 07:00 61 16 90/38 100 03/01/17 06:19 98.4 F 63 11 87/43 100 03/01/17 06:00 98.3 F 64 19 95/51 100 03/01/17 05:30 98.3 F 64 14 103/35 96 03/01/17 05:00 60 22 90/39 99 03/01/17 04:03 20 100 03/01/17 04:00 60 20 89/48 100 03/01/17 03:58 98.2 F 03/01/17 03:02 98.7 F 62 12 86/49 98 03/01/17 03:00 62 12 86/49 98 03/01/17 02:47 98.6 F 64 25 98/45 99 03/01/17 02:00 61 20 98/40 98 03/01/17 01:00 60 24 90/47 96 03/01/17 00:33 60 18 78/37 100 02/28/17 23:54 97.9 F 02/28/17 23:00 60 23 94/42 100 02/28/17 22:11 62 27 85/39 98 02/28/17 21:10 60 15 82/45 100 02/28/17 20:20 18 99 02/28/17 20:05 61 26 93/71 99 02/28/17 20:00 98.5 F 02/28/17 18:00 61 20 97/41 100 02/28/17 17:00 61 20 94/39 100 02/28/17 16:00 61 18 97/41 100 02/28/17 15:54 98.0 F Intake and Output 02/28/17 03/01/17 03/01/17 23:59 07:59 15:59 Intake Total 300 / 300 533 / 533 100 / 100 Output Total 0 / 0 0 / 0 Balance 300 / 300 533 / 533 100 / 100 Intake: IV Fluids 300 / 300 200 / 200 100 / 100 Protonix 40 MG In 0.9 % 100 / 100 200 / 200 100 / 100 Sodium Chloride (Mini-Bag +) 100 ML @ 20 mls/hr IVC .Q5H LINDA Rx#: [id number] Ofirmev 1,000 mg/100 ml 1 100 / 100 ,000 mg In 100 ml @ 400 mls/hr IVPB Q8H PRN Rx#: [id number] Zosyn 3.375 GM In 100 / 100 Dextrose 5% (Minibag+) 100 ML 100 ML @ 25 mls/hr IVPB Q12HR LINDA Rx#: [id number] Blood Product 333 / 333 Rbcs Leuko Poor As-1 333 / 333 Unit [id number] Rbcs Leuko Poor As-3 2nd 0 / 0 Unit [id number] Output: Urine 0 / 0 0 / 0 Other: Stool Size Moderate Stool Consistency soft Stool Color Blood Tinged # Voids 0 # Bowel Movements 1 Weight 114.15 kg Blood Glucose* 113 106 110 Patient Weight 03/01/17 23:59 Weight 114.15 kg - Lab 03/01/17 10:00 03/01/17 04:06 Most recent lab results Calcium 8.0 mg/dL (8.6-10.8) L 03/01/17 04:06 Phosphorus 3.4 mg/dL (2.3-4.7) 02/28/17 13:05 Magnesium 1.9 mg/dL (1.6-2.6) 03/01/17 04:06 Consult Discharge Plan - Plan Referrals: Brandie Lion MD [Primary Care Provider] -
[2017-03-01 16:26] LABS: Hemoglobin 8.8 g/dL (11.5-15.4)
[2017-03-01] MEDS ORDERED: *HR* Midazolam HCl 5 MG/5 ML VIAL IVP PRN (16:58)
[2017-03-01] MEDS ORDERED: Tetracaine/Benzocaine/Butamben 200MG/SPRAY (100SPY/BOT) MM ONE (16:58)
[2017-03-01] MEDS ORDERED: *HR* FentaNYL (PF) 100 MCG/2 ML VIAL IVP PRN (16:58)
[2017-03-01] MEDS: 0.9 % Sodium Chloride 1,000 ML IVC SCH (18:26)
[2017-03-02 00:21] LABS: Hematocrit 28.5 % (35.3-44.9); Hemoglobin 8.8 g/dL (11.5-15.4)
[2017-03-02] MEDS: Acetaminophen IV 1,000 MG/100 ML INFUS..BTL IVPB PRN (00:25)
[2017-03-02] MEDS: Ipratropium/Albuterol Neb 3 ML IH SCH ×6 (03:29→23:50)
[2017-03-02 03:35] LABS: Basophils % 0.2 %; Eosinophils # 0.1 K/mcL (0.0-0.6); Eosinophils % 0.7 %; Hematocrit 27.5 % (35.3-44.9); Hemoglobin 8.5 g/dL (11.5-15.4); Immature Granulocytes % 1.6 % (0-4); Lymphocytes # 1.3 K/mcL (0.6-4.6); Lymphocytes % 7.4 %; Mean Corpuscular HGB Conc 30.9 g/dL (31.6-35.5); Mean Corpuscular Hemoglobin 28.4 pg (28.0-33.3); Mean Platelet Volume 9.8 fL (9.4-12.4); Monocytes # 1.3 K/mcL (0.0-1.3); Monocytes % 7.4 %; Neutrophils # 14.4 K/mcL (1.6-8.9); Nucleated Red Blood Cells 0.3 /100 WBC (0); Platelet Count 168 K/mcL (140-400); Red Blood Count 2.99 M/mcL (3.82-4.97); Segmented Neutrophils % 82.7 %
[2017-03-02 03:44] LABS: INR 1.2; Prothrombin Time 13.1 Seconds (9.4-12.1)
[2017-03-02 03:47] LABS: Activated Partial Thrombo Time 23.1 Seconds (26.0-36.0)
[2017-03-02 03:48] LABS: Calcium 8.1 mg/dL (8.6-10.8); Magnesium 1.9 mg/dL (1.6-2.6); Potassium 4.2 mEq/L (3.5-4.5)
[2017-03-02] MEDS: Pantoprazole 40 MG in 0.9 % Sodium Chloride Mini Bag 100 ML IVC SCH (04:24)
[2017-03-02] MEDS: 0.9 % Sodium Chloride 1,000 ML IVC SCH (05:04)
[2017-03-02] MEDS: *HR* Morphine 2 MG/ML SYRINGE IVP PRN (06:27)
[2017-03-02] MEDS ORDERED: 0.9 % Sodium Chloride 250 ML IVC ONE (07:45)
[2017-03-02] MEDS: Docusate Oral Soln 100 MG/10 ML UDC PO SCH (08:13)
[2017-03-02] MEDS: Calcium Acetate 667 MG CAPSULE PO SCH ×3 (08:13→17:12)
[2017-03-02] MEDS: Anastrozole 1 MG TABLET PO SCH (08:15)
[2017-03-02] MEDS: Gabapentin 100 MG CAPSULE PO SCH ×2 (08:15→20:24)
[2017-03-02] MEDS: Budesonide/Formoterol 160/4.5 MDI IH SCH ×2 (08:21→19:33)
[2017-03-02] MEDS ORDERED: Calcium Gluconate 2,000 MG in D5% in Water 100 ML IVPB PRN (08:39)
[2017-03-02] MEDS ORDERED: 0.9 % Sodium Chloride 1,000 ML PRIME SCH (08:39)
--- NOTE | 2017-03-02 09:05 | Pulmonology Progress Note ---
<Pan Pacheconicko M - Last Filed: 03/02/17 10:18> Date of Encounter: 03/02/17 Objective PUL Vital signs: Last Vital Signs Temp 97.4 F L 03/02/17 08:00 Pulse 114 03/02/17 08:00 Resp 16 03/02/17 08:26 BP 94/53 03/02/17 08:00 Pulse Ox 100 03/02/17 08:26 Results - Laboratory Findings CBC and BMP: 03/02/17 03:26 03/02/17 03:26 PT/INR, D-dimer PT 13.1 Seconds (9.4-12.1) H 03/02/17 03:26 Abnormal lab findings: Abnormal lab results WBC 17.4 K/mcL (4.3-11.1) H 03/02/17 03:26 RBC 2.99 M/mcL (3.82-4.97) L 03/02/17 03:26 Hgb 8.5 g/dL (11.5-15.4) L 03/02/17 03:26 Hct 27.5 % (35.3-44.9) L 03/02/17 03:26 MCHC 30.9 g/dL (31.6-35.5) L 03/02/17 03:26 RDW 19.0 % (11.5-14.5) H 03/02/17 03:26 Band Neutrophils % 12.0 % (0-4) H 02/28/17 00:45 Neutrophils # 14.4 K/mcL (1.6-8.9) H 03/02/17 03:26 Nucleated RBCs/100 WBC 0.3 /100 WBC (0) H 03/02/17 03:26 Large Platelets Present (Not Present) A 02/28/17 00:45 Polychromasia 1+ (Not Present) A 02/28/17 08:45 Hypochromasia Present (Not Present) A 02/28/17 00:45 Anisocytosis 1+ (Not Present) A 02/28/17 08:45 Microcytosis Present (Not Present) A 02/28/17 00:45 PT 13.1 Seconds (9.4-12.1) H 03/02/17 03:26 APTT 23.1 Seconds (26.0-36.0) L 03/02/17 03:26 Sodium 130 mEq/L (136-145) L 03/02/17 03:26 Chloride 95 mEq/L (98-109) L 03/02/17 03:26 BUN 96 mg/dL (7-20) H 03/02/17 03:26 Creatinine 6.20 mg/dL (0.57-1.11) H 03/02/17 03:26 Est GFR ( Amer) 8 (> 60) L 03/02/17 03:26 Est GFR (Non-Af Amer) 7 (> 60) L 03/02/17 03:26 POC Glucose 102 (58-89) H 03/01/17 19:03 Calcium 8.1 mg/dL (8.6-10.8) L 03/02/17 03:26 Ionized Calcium 1.02 mmol/L (1.15-1.35) L 02/28/17 13:05 Iron 24 mcg/dL (50-170) L 03/01/17 11:25 Transferrin 116 mg/dL (180-382) L 03/01/17 11:25 Ferritin 9740 ng/ml (5-204) H 03/01/17 11:25 Serum Total Protein 5.0 g/dL (6.0-8.3) L D 02/28/17 08:45 Albumin 2.2 g/dL (3.5-5.0) L D 02/28/17 08:45 Albumin/Globulin Ratio 0.8 (1.1-2.2) L 02/28/17 08:45 Triglycerides 193 mg/dL (< 150) H 02/28/17 00:45 VLDL Cholesterol, Calc 39 mg/dL (< 31) H 02/28/17 00:45 HDL Cholesterol 21 mg/dL (40-59) L 02/28/17 00:45 Stool Occult Blood Positive (Negative) A 02/28/17 01:50 - Microbiology Findings Microbiology Findings: Microbiology, Last 48 Hours 02/28/17 07:01 Blood Culture - Preliminary Peripheral Venipuncture No growth. 02/28/17 07:01 Blood Culture - Preliminary Peripheral Venipuncture No growth. - Clinical Findings Intake & Output: Intake & Output 03/01/17 03/02/17 03/02/17 23:59 07:59 15:59 Intake Total 500 / 500 300 / 300 480 / 480 Balance 500 / 500 300 / 300 480 / 480 Weight 105.143 kg Consult Discharge Plan - Plan Referrals: Brandie Lion MD [Primary Care Provider] - - Attending Attestation I examined this patient and my medical decision-making was reviewed with the Resident Physician. I agree with the documented findings, disposition and treatment plan as described except to the extent set forth below. Patient seen and examined. Labs, radiology, chart personally reviewed. Agree with resident's history and physical, assessment, plan with following comments: INCLINOMETER TESTER: Patient follows commands, Pulmonary: Acceptable oxygenation and ventilation Cardiovascular: Hypotension which could be multifactorial, I still suspect volume depletion and will give more small IV bolus fluid and also A. fib with RVR which I am hoping it will get better with the fluid, would also consider digoxin. GI: Nutrition per dietary and GI prophylaxis per routine check with GI if no further workup then patient can be started on clear liquid. Heme: DVT prophylaxis per routine. Mechanical DVT Renal; nephrology follow-up Endorcine: blood glucose is monitored Lines: all lines checked and no evidence of infections Skin: skin care to prevent pressure ulcers per nursing routine care Patient remained hemodynamically unstable to be transferred out of ICU <Jose Geiger - Last Filed: 03/02/17 12:18> Date of Encounter: 03/02/17 Time of Encounter: 09:01 Assessment and Plan (1) Upper GI bleed Current Visit: Yes Status: Acute Patient has been having hematochezia and melena prior to admission. She normally stays at a care facility and was brought [facility] and was then transferred to [facility] for further evaluation. Patient received 2 units of blood two days ago and had a drop her hemoglobin yesterday morning and received another 2 units. Most recent hemoglobin was 8.5 and we will continue to follow her hemoglobin. Patient is being transitioned to protonix Q12. GI has been consult on this patient and did an EGD two days ago which was inconclusive. There was a large amount of blood in the stomach which made it difficult to visualize everything. They repeated the EGD yesterday evening and found a couple of telangiectasias which they cauterized. Patient has been advanced to clear liquid diet. (2) Anemia Current Visit: No Status: Chronic Patient is currently anemic and hemoglobin continues to fluctuate. This is likely due to a GI bleed. Gastroenterology has been consult on this patient. The patient has received 4 units of blood over the course of her hospital stay. Her current hemoglobin is 8.5. She did not require any blood overnight. It appears that her hemoglobin is remaining above 8 on the last 4 blood draws. It appears that her hemoglobin is beginning to stabilize. We will continue to follow this patient's hemoglobin. GI did repeat EGD and found a couple of telangiectasias for which they cauterized. (3) Hypotension Current Visit: Yes Status: Acute Patient is currently hypotensive with a blood pressure in the 90s over 40s. Our goal is to maintain a map greater than 60. We have ordered Levophed but had not started it due to patient maintaining her current blood pressure and MAP. We are limiting the amount of fluid we are giving due to the patient not producing any urine and having end-stage renal disease requiring dialysis. We will use 250 fluid boluses to help with blood pressure and heart rate. Qualifiers: Hypotension type: unspecified hypotension type Qualified Code(s): I95.9 - Hypotension, unspecified (4) ESRD (end stage renal disease) on dialysis Current Visit: No Status: Chronic Patient has a history of end-stage renal disease requiring dialysis. Patient does not make any urine. Nephrology has been consult and is seeing the patient. Nephrology has decided to start the patient on Heavenly today. Interventional radiology will place a dialysis catheter and nephrology will begin Heavenly (5) Chronic a-fib Current Visit: No Status: Chronic Patient has a history of chronic atrial fibrillation. Patient's heart rate was somewhat irregular this morning with a rate in the low 100s. We will give him a fluid bolus to try and help with the rate. If this does not help we will start digoxin. We will hold the patient's amiodarone, diltiazem and metoprolol due to her blood pressure. (6) DVT prophylaxis Current Visit: No Status: Acute Due to the patient's possible GI bleed and anemia we will not start any blood thinners for DVT prophylaxis at this time. SCDs have been ordered for this patient for DVT prophylaxis. Subjective Principal diagnosis: GI Bleed Interval history: Patient states that she is doing okay this morning but is still having some abdominal pain. Patient did well overnight. Her hemoglobin has remained above 8 and the most recent blood draw was 8.5 Otherwise nursing states that she did well overnight. Objective PUL Vital signs: Last Vital Signs Temp 97.4 F L 03/02/17 08:00 Pulse 114 03/02/17 08:00 Resp 16 03/02/17 08:26 BP 94/53 03/02/17 08:00 Pulse Ox 100 03/02/17 08:26 General appearance: no acute distress Eyes: nonicteric ENT: oropharynx dry Neck: supple Effort: normal Auscultation: left: clear, right: rales Cardiovascular: irregular rhythm, other (Tachycardic) Gastrointestinal: normoactive bowel sounds Integumentary: other (Bilateral ecchymosis on the upper extremities) Extremities: no cyanosis, no edema Musculoskeletal: no deformities normal mental status, non-focal exam mood appropriate, affect normal Results - Laboratory Findings CBC and BMP: 03/02/17 03:26 03/02/17 03:26 PT/INR, D-dimer PT 13.1 Seconds (9.4-12.1) H 03/02/17 03:26 Abnormal lab findings: Abnormal lab results WBC 17.4 K/mcL (4.3-11.1) H 03/02/17 03:26 RBC 2.99 M/mcL (3.82-4.97) L 03/02/17 03:26 Hgb 8.5 g/dL (11.5-15.4) L 03/02/17 03:26 Hct 27.5 % (35.3-44.9) L 03/02/17 03:26 MCHC 30.9 g/dL (31.6-35.5) L 03/02/17 03:26 RDW 19.0 % (11.5-14.5) H 03/02/17 03:26 Band Neutrophils % 12.0 % (0-4) H 02/28/17 00:45 Neutrophils # 14.4 K/mcL (1.6-8.9) H 03/02/17 03:26 Nucleated RBCs/100 WBC 0.3 /100 WBC (0) H 03/02/17 03:26 Large Platelets Present (Not Present) A 02/28/17 00:45 Polychromasia 1+ (Not Present) A 02/28/17 08:45 Hypochromasia Present (Not Present) A 02/28/17 00:45 Anisocytosis 1+ (Not Present) A 02/28/17 08:45 Microcytosis Present (Not Present) A 02/28/17 00:45 PT 13.1 Seconds (9.4-12.1) H 03/02/17 03:26 APTT 23.1 Seconds (26.0-36.0) L 03/02/17 03:26 Sodium 130 mEq/L (136-145) L 03/02/17 03:26 Chloride 95 mEq/L (98-109) L 03/02/17 03:26 BUN 96 mg/dL (7-20) H 03/02/17 03:26 Creatinine 6.20 mg/dL (0.57-1.11) H 03/02/17 03:26 Est GFR ( Amer) 8 (> 60) L 03/02/17 03:26 Est GFR (Non-Af Amer) 7 (> 60) L 03/02/17 03:26 POC Glucose 102 (58-89) H 03/01/17 19:03 Calcium 8.1 mg/dL (8.6-10.8) L 03/02/17 03:26 Ionized Calcium 1.02 mmol/L (1.15-1.35) L 02/28/17 13:05 Iron 24 mcg/dL (50-170) L 03/01/17 11:25 Transferrin 116 mg/dL (180-382) L 03/01/17 11:25 Ferritin 9740 ng/ml (5-204) H 03/01/17 11:25 Serum Total Protein 5.0 g/dL (6.0-8.3) L D 02/28/17 08:45 Albumin 2.2 g/dL (3.5-5.0) L D 02/28/17 08:45 Albumin/Globulin Ratio 0.8 (1.1-2.2) L 02/28/17 08:45 Triglycerides 193 mg/dL (< 150) H 02/28/17 00:45 VLDL Cholesterol, Calc 39 mg/dL (< 31) H 02/28/17 00:45 HDL Cholesterol 21 mg/dL (40-59) L 02/28/17 00:45 Stool Occult Blood Positive (Negative) A 02/28/17 01:50 - Microbiology Findings Microbiology Findings: Microbiology, Last 48 Hours 02/28/17 07:01 Blood Culture - Preliminary Peripheral Venipuncture No growth. 02/28/17 07:01 Blood Culture - Preliminary Peripheral Venipuncture No growth. - Clinical Findings Intake & Output: Intake & Output 03/01/17 03/02/17 03/02/17 23:59 07:59 15:59 Intake Total 500 / 500 300 / 300 Balance 500 / 500 300 / 300 Weight 105.143 kg - VTE Documentation of Mechanical Device: Intermittent pneumatic compression device
--- NOTE | 2017-03-02 10:09 | IR Procedure Note ---
Date of procedure: 03/02/17 Consent Obtained: Written consent Timeout: Correct patient and procedure verified, Correct site verified, Time out performed, Skin prep completed Local anesthetic: Lidocaine 1% Indications: Acute renal insufficiency Procedure Performed: Temp HD catheter placement Site/Technique: RIJV used for access Results/Findings: 20cm triple lumen temp hd catheter placed. Estimated blood loss (cc): 1 Complications: None; Tolerated procedure well Post Procedure Treatment Plan: Monitoring in ICU
[2017-03-02] MEDS: Calcium Chloride 4,000 MG in 0.9 % Sodium Chloride 1,000 ML CRRT SCH (10:57)
[2017-03-02] MEDS: PrismaSATE BGK 4/2.5 5,000 ML CRRT SCH ×6 (10:59→23:16)
[2017-03-02 11:36] LABS: Hepatitis B Surface Antibody 2.88 mIU/mL; Hepatitis B Surface Antigen Nonreactive (Nonreactive)
[2017-03-02] MEDS ORDERED: *HR* FentaNYL (PF) 100 MCG/2 ML VIAL IVP PRN (11:41)
--- NOTE | 2017-03-02 12:14 | Nephrology Progress Note ---
Date of Encounter: 03/02/17 Time of Encounter: 12:13 - Assessment and Plan (1) ESRD (end stage renal disease) on dialysis Current Visit: No Status: Chronic She is now uremic and fluid overloaded from several days of missed dialysis, which appears to have been held d/t hypotension. She will need CRRT (via [facility] for CVVHDF) for clearance and fluid / volume mgt. BFR 100, UF Net +1-25 only as tolerated by hemodynamics, Dialysate and Replacement fluid 4K/2.5Ca 1250mL/hr. With citrate to e added. (2) Hypotension Current Visit: Yes Status: Acute Trending better Qualifiers: Hypotension type: unspecified hypotension type Qualified Code(s): I95.9 - Hypotension, unspecified (3) Lower gastrointestinal bleed Current Visit: Yes Status: Acute As per primary (4) Anemia in CKD (chronic kidney disease) Current Visit: No Status: Acute Goal Hgb 10-11. Will monitor Qualifiers: Chronic kidney disease stage: stage 4 (severe) Qualified Code(s): N18.4 - Chronic kidney disease, stage 4 (severe); D63.1 - Anemia in chronic kidney disease (5) Hyperkalemia Current Visit: No Status: Acute See above (6) Hypervolemia Current Visit: No Status: Acute See above Qualifiers: Hypervolemia type: other Qualified Code(s): E87.79 - Other fluid overload (7) Uremia Current Visit: No Status: Acute Subjective Principal diagnosis: GI Bleed Interval history: Pt was s/e earlier today. She did not affirm N/V but did report feeling very short of breath, tired and new onset twitching. She has not had any dialysis in several days. She was seen in the ICU due to severely low BPs. Objective - Vital Signs Vital signs: Vital Signs Temp Pulse Resp Resp Resp Resp Resp 03/02/17 11:45 16 03/02/17 11:00 100 16 03/02/17 10:00 97 16 03/02/17 09:00 116 16 03/02/17 08:26 16 03/02/17 08:00 97.4 F L 114 18 03/02/17 07:58 97.4 F L 03/02/17 07:00 104 16 03/02/17 06:00 103 15 03/02/17 05:00 64 23 03/02/17 04:33 97.5 F L 03/02/17 04:00 65 23 03/02/17 03:29 18 03/02/17 03:00 60 15 03/02/17 02:00 61 18 03/02/17 01:12 62 20 03/02/17 00:21 97.8 F 03/02/17 00:15 71 20 03/01/17 23:20 18 03/01/17 23:00 61 16 03/01/17 22:00 63 18 03/01/17 21:07 68 29 03/01/17 20:00 73 24 03/01/17 19:56 98.2 F 03/01/17 19:38 16 03/01/17 19:00 75 18 03/01/17 18:12 16 16 16 16 03/01/17 18:00 76 16 03/01/17 17:00 69 24 03/01/17 16:00 66 24 03/01/17 15:50 16 03/01/17 15:00 63 20 03/01/17 14:00 64 20 03/01/17 13:00 64 20 BP BP BP BP BP Pulse Ox 03/02/17 11:45 92 03/02/17 11:00 87/39 99 03/02/17 10:00 80/34 99 03/02/17 09:00 94/63 99 03/02/17 08:26 100 03/02/17 08:00 94/53 97 03/02/17 07:58 03/02/17 07:00 82/37 100 03/02/17 06:00 94/47 99 03/02/17 05:00 92/56 99 03/02/17 04:33 03/02/17 04:00 88/39 98 03/02/17 03:29 96 03/02/17 03:00 87/41 97 03/02/17 02:00 95/56 96 03/02/17 01:12 86/32 99 03/02/17 00:21 03/02/17 00:15 95/56 99 03/01/17 23:20 103/41 99 03/01/17 23:00 103/41 98 03/01/17 22:00 96/40 100 03/01/17 21:07 92/41 98 03/01/17 20:00 105/66 99 03/01/17 19:56 03/01/17 19:38 100 03/01/17 19:00 85/57 100 03/01/17 18:12 114/53 143/59 152/49 141/63 03/01/17 18:00 114/53 100 03/01/17 17:00 100/44 100 03/01/17 16:00 105/57 100 03/01/17 15:50 100 03/01/17 15:00 99/38 100 03/01/17 14:00 90/41 100 03/01/17 13:00 90/46 99 Intake and Output 03/01/17 03/02/17 03/02/17 23:59 07:59 15:59 Intake Total 500 / 500 300 / 300 480 / 480 Balance 500 / 500 300 / 300 480 / 480 Intake: IV Fluids 200 / 200 200 / 200 Protonix 40 MG In 0.9 % 200 / 200 100 / 100 Sodium Chloride (Mini-Bag +) 100 ML @ 20 mls/hr IVC .Q5H LINDA Rx#: [id number] Ofirmev 1,000 mg/100 ml 1 100 / 100 ,000 mg In 100 ml @ 400 mls/hr IVPB Q8H PRN Rx#: [id number] Oral 100 / 100 480 / 480 Blood Product 300 / 300 Rbcs Leuko Poor As-3 2nd 300 / 300 Unit [id number] Other: Meal Breakfast Percent of Meal Consumed 75% Weight 105.143 kg Blood Glucose* 102 89 89 Patient Weight 03/02/17 23:59 Weight 105.143 kg - General Appearance General appearance: Present: well-developed, moderate distress, chronically ill , fatigue, frail EENT: Present: ATNC, PERRL Neck: Present: JVD, supple Cardiology: Present: edema, regular rate, normal S1, normal S2 Dialysis Vascular Access: Arteriovenous Fistula (Right) thrill: Yes bruit: Yes Gastrointestinal: Present: normoactive bowel sounds, no tenderness, no guarding , obese Integumentary: Present: no rash, warm and dry Neurologic: Present: no focal deficit, no asterixis Musculoskeletal: Present: no erythema, no cyanosis, clubbing Psychiatric: Present: mood/affect appropriate, cooperative - Lab 03/02/17 03:26 03/02/17 03:26 Most recent lab results Calcium 8.1 mg/dL (8.6-10.8) L 03/02/17 03:26 Phosphorus 3.4 mg/dL (2.3-4.7) 02/28/17 13:05 Magnesium 1.9 mg/dL (1.6-2.6) 03/02/17 03:26 - VTE Documentation of Mechanical Device: Intermittent pneumatic compression device Consult Discharge Plan - Plan Referrals: Brandie Lion MD [Primary Care Provider] -
[2017-03-02] MEDS ORDERED: *HR* Digoxin 0.5 MG/2 ML AMPUL IVP SCH (12:30)
[2017-03-02] MEDS: Norepinephrine 4 MG in D5% in Water 250 ML IVC SCH (15:12)
[2017-03-02] MEDS: *HR* FentaNYL (PF) 100 MCG/2 ML VIAL IVP PRN ×3 (16:02→21:10)
[2017-03-02] MEDS ORDERED: *HR* Digoxin 0.5 MG/2 ML AMPUL IVP ONE (16:52)
[2017-03-02] MEDS: Pantoprazole 40 MG VIAL IVP SCH (17:12)
[2017-03-02] MEDS ORDERED: *HR* LORazepam 2 MG/ML VIAL IVP ONE (23:20)
[2017-03-03] MEDS: PrismaSATE BGK 4/2.5 5,000 ML CRRT SCH ×10 (03:09→21:00)
[2017-03-03] MEDS: Ipratropium/Albuterol Neb 3 ML IH SCH ×2 (03:44→07:22)
[2017-03-03] MEDS ORDERED: *HR* Heparin 5,000 UNIT/ML VIAL ONE ×2 (03:50→18:25)
[2017-03-03 04:15] LABS: Basophils # 0.1 K/mcL (0.0-0.2); Basophils % 0.4 %; Eosinophils % 0.2 %; Hematocrit 32.1 % (35.3-44.9); Hemoglobin 9.7 g/dL (11.5-15.4); Lymphocytes # 0.7 K/mcL (0.6-4.6); Lymphocytes % 3.9 %; Mean Corpuscular HGB Conc 30.2 g/dL (31.6-35.5); Mean Corpuscular Hemoglobin 28.2 pg (28.0-33.3); Mean Corpuscular Volume 93.3 fL (83.0-100.0); Monocytes % 5.4 %; Neutrophils # 15.8 K/mcL (1.6-8.9); Nucleated Red Blood Cells 0.6 /100 WBC (0); Platelet Count 163 K/mcL (140-400); Red Blood Count 3.44 M/mcL (3.82-4.97); Red Cell Distribution Width 19.7 % (11.5-14.5); Segmented Neutrophils % 87.1 %
[2017-03-03] MEDS: Saliva Stimulant 100ml BOTTLE PO PRN ×2 (04:19→12:51)
[2017-03-03] MEDS: *HR* Heparin 5,000 UNIT/ML VIAL IV PRN ×4 (04:43→22:55)
[2017-03-03] MEDS: Pantoprazole 40 MG VIAL IVP SCH ×2 (04:55→18:49)
[2017-03-03 06:02] LABS: Calcium 9.3 mg/dL (8.6-10.8); Potassium 4.5 mEq/L (3.5-4.5)
[2017-03-03] MEDS: Budesonide/Formoterol 160/4.5 MDI IH SCH ×2 (07:22→20:14)
[2017-03-03] MEDS ORDERED: *HR* Digoxin 0.5 MG/2 ML AMPUL IVP ONE (07:39)
[2017-03-03] MEDS ORDERED: Albuterol 2.5 MG/3 ML NEBULIZER IH PRN (07:49)
--- NOTE | 2017-03-03 08:02 | Pulmonology Progress Note ---
<Monique Chaudharyd - Last Filed: 03/03/17 08:21> Date of Encounter: 03/03/17 Time of Encounter: 08:04 Assessment and Plan (1) Upper GI bleed Current Visit: Yes Status: Acute Patient has been having hematochezia and melena prior to admission. This patient was received 4 units of blood in the past few days. Patient has received 2 EGDs since her stay. Two telangiectasias were cauterized yesterday. This patient's hemoglobin is currently 9.7. Her blood pressure is 116/90. Her heart rate is in the 120s and telemetry shows atrial fibrillation. We will continue monitoring her hemoglobin. Gastroenterology is also following and managing her upper GI bleed. (2) Anemia Current Visit: No Status: Chronic This patient currently has a hemoglobin of 9.7. She received 4 units of blood over the last couple days. We will continue monitoring her hemoglobin and hematocrit. Qualifiers: Anemia type: due to chronic kidney disease Chronic kidney disease stage: on chronic dialysis Qualified Code(s): N18.6 - End stage renal disease; D63.1 - Anemia in chronic kidney disease; Z99.2 - Dependence on renal dialysis (3) Hypotension Current Visit: Yes Status: Acute This patient has been hypotensive since admission. I suspect this is due to the acute upper GI bleed she was having. Patient's current blood pressure is 116/90. This is an improvement from yesterday. She has not had to be on any pressors up until this point. We will continue monitoring her blood pressure and give 250 mL fluid boluses as needed. Qualifiers: Hypotension type: unspecified hypotension type Qualified Code(s): I95.9 - Hypotension, unspecified (4) ESRD (end stage renal disease) on dialysis Current Visit: No Status: Chronic Patient is currently on Heavenly per nephrology (5) Chronic a-fib Current Visit: No Status: Chronic We are currently giving digoxin to manage her rate control as we had concerns yesterday that amiodarone may worsen her hypotension as well as the possibility of chemical conversion to sinus rhythm which could lead to an ischemic stroke. Her heart rate is still in the 120s today. I have given her another IV dose of 0.0625 mg. We are obtaining digoxin levels today at 1800. (6) DVT prophylaxis Current Visit: No Status: Acute Due to the patient's possible GI bleed and anemia, we will not start any blood thinners for DVT prophylaxis at this time. SCDs have been ordered for this patient for DVT prophylaxis Subjective Principal diagnosis: GI Bleed Interval history: Patient had worsening tremor overnight. She received 0.5 mg of Ativan and the tremor improved. Her heart rate also is spite into the 120s in atrial fibrillation. Objective PUL Vital signs: Last Vital Signs Temp 97.4 F L 03/03/17 07:46 Pulse 121 03/03/17 07:00 Resp 22 03/03/17 07:23 BP 116/90 03/03/17 07:00 Pulse Ox 98 03/03/17 07:23 General appearance: asleep Eyes: nonicteric ENT: oropharynx moist Neck: supple Effort: normal Auscultation: bilateral: wheezes, rhonchi Cardiovascular: irregular rhythm, other (Telemetry: Atrial fibrillation in the 110s) Gastrointestinal: normoactive bowel sounds Integumentary: normal Extremities: no cyanosis, pink and warm, pulses normal, no ischemia or petechiae , edema (1+ pitting edema bilaterally) other (Patient was asleep.) Results - Laboratory Findings CBC and BMP: 03/03/17 03:55 03/03/17 03:55 PT/INR, D-dimer PT 13.1 Seconds (9.4-12.1) H 03/02/17 03:26 Abnormal lab findings: Abnormal lab results WBC 18.1 K/mcL (4.3-11.1) H 03/03/17 03:55 RBC 3.44 M/mcL (3.82-4.97) L 03/03/17 03:55 Hgb 9.7 g/dL (11.5-15.4) L 03/03/17 03:55 Hct 32.1 % (35.3-44.9) L 03/03/17 03:55 MCHC 30.2 g/dL (31.6-35.5) L 03/03/17 03:55 RDW 19.7 % (11.5-14.5) H 03/03/17 03:55 Band Neutrophils % 12.0 % (0-4) H 02/28/17 00:45 Neutrophils # 15.8 K/mcL (1.6-8.9) H 03/03/17 03:55 Nucleated RBCs/100 WBC 0.6 /100 WBC (0) H 03/03/17 03:55 Large Platelets Present (Not Present) A 02/28/17 00:45 Polychromasia 1+ (Not Present) A 02/28/17 08:45 Hypochromasia Present (Not Present) A 02/28/17 00:45 Anisocytosis 1+ (Not Present) A 02/28/17 08:45 Microcytosis Present (Not Present) A 02/28/17 00:45 PT 13.1 Seconds (9.4-12.1) H 03/02/17 03:26 APTT 23.1 Seconds (26.0-36.0) L 03/02/17 03:26 Sodium 135 mEq/L (136-145) L 03/03/17 03:55 BUN 55 mg/dL (7-20) H D 03/03/17 03:55 Creatinine 4.26 mg/dL (0.57-1.11) H 03/03/17 03:55 Est GFR ( Amer) 12 (> 60) L 03/03/17 03:55 Est GFR (Non-Af Amer) 10 (> 60) L 03/03/17 03:55 Glucose 130 mg/dL (70-99) H 03/03/17 03:55 POC Glucose 125 (58-89) H 03/02/17 20:37 Iron 24 mcg/dL (50-170) L 03/01/17 11:25 Transferrin 116 mg/dL (180-382) L 03/01/17 11:25 Ferritin 9740 ng/ml (5-204) H 03/01/17 11:25 Serum Total Protein 5.0 g/dL (6.0-8.3) L D 02/28/17 08:45 Albumin 2.2 g/dL (3.5-5.0) L D 02/28/17 08:45 Albumin/Globulin Ratio 0.8 (1.1-2.2) L 02/28/17 08:45 Triglycerides 193 mg/dL (< 150) H 02/28/17 00:45 VLDL Cholesterol, Calc 39 mg/dL (< 31) H 02/28/17 00:45 HDL Cholesterol 21 mg/dL (40-59) L 02/28/17 00:45 Stool Occult Blood Positive (Negative) A 02/28/17 01:50 - Microbiology Findings Microbiology Findings: Microbiology, Last 48 Hours 02/28/17 07:01 Blood Culture - Preliminary Peripheral Venipuncture No growth. 02/28/17 07:01 Blood Culture - Preliminary Peripheral Venipuncture No growth. - Clinical Findings Intake & Output: Intake & Output 03/02/17 03/03/17 03/03/17 23:59 07:59 15:59 Intake Total 880 / 880 0 / 0 Output Total 643 / 643 Balance 237 / 237 0 / 0 Weight 118.433 kg - VTE Documentation of Mechanical Device: Intermittent pneumatic compression device Consult Discharge Plan - Plan Referrals: Brandie Lion MD [Primary Care Provider] - <Elida Pacheco - Last Filed: 03/03/17 15:12> Date of Encounter: 03/03/17 Objective PUL Vital signs: Last Vital Signs Temp 97.4 F L 03/03/17 07:46 Pulse 92 03/03/17 14:00 Resp 20 03/03/17 14:00 BP 114/71 03/03/17 13:00 Pulse Ox 94 03/03/17 14:00 Results - Laboratory Findings CBC and BMP: 03/03/17 03:55 03/03/17 03:55 PT/INR, D-dimer PT 13.1 Seconds (9.4-12.1) H 03/02/17 03:26 Abnormal lab findings: Abnormal lab results WBC 18.1 K/mcL (4.3-11.1) H 03/03/17 03:55 RBC 3.44 M/mcL (3.82-4.97) L 03/03/17 03:55 Hgb 9.7 g/dL (11.5-15.4) L 03/03/17 03:55 Hct 32.1 % (35.3-44.9) L 03/03/17 03:55 MCHC 30.2 g/dL (31.6-35.5) L 03/03/17 03:55 RDW 19.7 % (11.5-14.5) H 03/03/17 03:55 Band Neutrophils % 12.0 % (0-4) H 02/28/17 00:45 Neutrophils # 15.8 K/mcL (1.6-8.9) H 03/03/17 03:55 Nucleated RBCs/100 WBC 0.6 /100 WBC (0) H 03/03/17 03:55 Large Platelets Present (Not Present) A 02/28/17 00:45 Polychromasia 1+ (Not Present) A 02/28/17 08:45 Hypochromasia Present (Not Present) A 02/28/17 00:45 Anisocytosis 1+ (Not Present) A 02/28/17 08:45 Microcytosis Present (Not Present) A 02/28/17 00:45 PT 13.1 Seconds (9.4-12.1) H 03/02/17 03:26 APTT 23.1 Seconds (26.0-36.0) L 03/02/17 03:26 Sodium 135 mEq/L (136-145) L 03/03/17 03:55 BUN 55 mg/dL (7-20) H D 03/03/17 03:55 Creatinine 4.26 mg/dL (0.57-1.11) H 03/03/17 03:55 Est GFR ( Amer) 12 (> 60) L 03/03/17 03:55 Est GFR (Non-Af Amer) 10 (> 60) L 03/03/17 03:55 Glucose 130 mg/dL (70-99) H 03/03/17 03:55 POC Glucose 125 (58-89) H 03/02/17 20:37 Ionized Calcium 0.85 mmol/L (1.15-1.35) L 03/03/17 14:45 Iron 24 mcg/dL (50-170) L 03/01/17 11:25 Transferrin 116 mg/dL (180-382) L 03/01/17 11:25 Ferritin 9740 ng/ml (5-204) H 03/01/17 11:25 Serum Total Protein 5.0 g/dL (6.0-8.3) L D 02/28/17 08:45 Albumin 2.2 g/dL (3.5-5.0) L D 02/28/17 08:45 Albumin/Globulin Ratio 0.8 (1.1-2.2) L 02/28/17 08:45 Triglycerides 193 mg/dL (< 150) H 02/28/17 00:45 VLDL Cholesterol, Calc 39 mg/dL (< 31) H 02/28/17 00:45 HDL Cholesterol 21 mg/dL (40-59) L 02/28/17 00:45 Stool Occult Blood Positive (Negative) A 02/28/17 01:50 - Clinical Findings Intake & Output: Intake & Output 03/02/17 03/03/17 03/03/17 23:59 07:59 15:59 Intake Total 880 / 880 0 / 0 1270 / 1270 Output Total 643 / 643 771 / 771 Balance 237 / 237 0 / 0 499 / 499 Weight 118.433 kg - Attending Attestation I examined this patient and my medical decision-making was reviewed with the Resident Physician. I agree with the documented findings, disposition and treatment plan as described except to the extent set forth below. Patient seen and examined. Labs, radiology, chart personally reviewed. Agree with resident's history and physical, assessment, plan with following comments: PENOLOGY TEACHER: Patient follows commands, Pulmonary: Acceptable oxygenation and ventilation Cardiovascular: Blood pressure has improved, however she still has A. fib rate is not controlled and we will add beta yuriy as long as her blood pressure tolerates it. GI: Nutrition per dietary and GI prophylaxis per routine Heme: DVT prophylaxis per routine. Because of the GI bleed even though patient has atrial fibrillation is not recommended to fully anticoagulate her and she is at risk of thromboembolic disease and patient understand that. Renal; patient is on Heavenly and to remove fluid as much as possible. Endorcine: blood glucose is monitored Lines: all lines checked and no evidence of infections Skin: skin care to prevent pressure ulcers per nursing routine care Patient will stay in ICU until she is off Heavenly and blood pressure stabilizes.
[2017-03-03] MEDS: Calcium Acetate 667 MG CAPSULE PO SCH ×3 (08:52→17:04)
[2017-03-03] MEDS: Anastrozole 1 MG TABLET PO SCH (08:52)
[2017-03-03] MEDS: Gabapentin 100 MG CAPSULE PO SCH ×2 (08:52→20:15)
[2017-03-03] MEDS: Docusate Oral Soln 100 MG/10 ML UDC PO SCH ×2 (08:52→10:11)
[2017-03-03] MEDS: Norepinephrine 4 MG in D5% in Water 250 ML IVC SCH (10:11)
[2017-03-03] MEDS: Calcium Gluconate 1,000 MG in D5% in Water 100 ML IVPB PRN ×6 (10:33→22:56)
--- NOTE | 2017-03-03 10:43 | Nephrology Progress Note ---
Date of Encounter: 03/03/17 Time of Encounter: 10:42 - Assessment and Plan (1) ESRD (end stage renal disease) on dialysis Current Visit: Yes Status: Chronic Continue abhay but increase the BFR to 200 to improve the filter half-life. 4K/2.5Ca Cont to follow a renal protective strategy (2) Hypotension Current Visit: Yes Status: Acute Trending better Qualifiers: Hypotension type: unspecified hypotension type Qualified Code(s): I95.9 - Hypotension, unspecified (3) Lower gastrointestinal bleed Current Visit: Yes Status: Acute As per primary (4) Anemia in CKD (chronic kidney disease) Current Visit: No Status: Acute Goal Hgb 10-11. Will monitor Qualifiers: Chronic kidney disease stage: stage 4 (severe) Qualified Code(s): N18.4 - Chronic kidney disease, stage 4 (severe); D63.1 - Anemia in chronic kidney disease (5) Hyperkalemia Current Visit: No Status: Resolved See above. CRRT for clearance (6) Hypervolemia Current Visit: No Status: Acute See above. Trending better Qualifiers: Hypervolemia type: other Qualified Code(s): E87.79 - Other fluid overload (7) Uremia Current Visit: No Status: Acute With delirium Subjective Principal diagnosis: GI Bleed Interval history: Pt was s/e earlier today. She did not affirm N/V but did report feeling very short of breath, tired and new onset twitching. She has not had any dialysis in several days. She was seen in the ICU due to severely low BPs. Objective - Vital Signs Vital signs: Vital Signs Temp Pulse Resp BP Pulse Ox 03/03/17 10:00 95 20 100/85 97 03/03/17 09:00 114 20 103/54 99 03/03/17 08:00 98 18 99/64 97 03/03/17 07:46 97.4 F L 03/03/17 07:23 22 98 03/03/17 07:00 121 25 116/90 98 03/03/17 06:00 78 22 83/36 96 03/03/17 05:00 117 25 108/77 97 03/03/17 04:00 97.5 F L 104 20 114/65 96 03/03/17 03:45 12 96 03/03/17 03:00 106 12 110/84 96 03/03/17 02:00 117 15 99/70 97 03/03/17 01:00 98 18 114/63 97 03/03/17 00:00 97.8 F 105 12 124/63 99 03/02/17 23:50 18 96 03/02/17 23:00 104 19 102/74 96 03/02/17 22:00 107 18 111/59 96 03/02/17 21:00 112 21 98/57 98 03/02/17 20:00 97.6 F 113 17 124/68 98 03/02/17 19:35 22 96 03/02/17 19:00 112 14 122/98 98 03/02/17 18:00 105 18 131/111 90 03/02/17 17:00 115 18 102/80 90 03/02/17 16:00 97.5 F L 98 18 78/53 90 03/02/17 15:11 16 100 03/02/17 15:00 109 16 107/41 100 03/02/17 14:00 113 20 103/53 99 03/02/17 13:00 104 16 99/59 99 03/02/17 12:14 97.2 F L 03/02/17 12:00 97.2 F L 112 16 79/48 99 03/02/17 11:45 16 92 03/02/17 11:00 100 16 87/39 99 Intake and Output 03/02/17 03/03/17 03/03/17 23:59 07:59 15:59 Intake Total 880 / 880 0 / 0 910 / 910 Output Total 643 / 643 189 / 189 Balance 237 / 237 0 / 0 721 / 721 Intake: IV Fluids 0 / 0 790 / 790 Calcium Chloride 4,000 MG 790 / 790 In 0.9 % Sodium Chloride 1,000 ML @ 40 mls/hr CRRT CONT LINDA Rx#: [id number] PrismaSATE BGK 4/2.5 5, 0 / 0 000 ML @ 1250 mls/hr CRRT CONT LINDA Rx#:[id number] Oral 880 / 880 0 / 0 120 / 120 Output: Urine 0 / 0 Abhay 643 / 643 189 / 189 Other: Weight 118.433 kg Blood Glucose* 125 138 Patient Weight 03/03/17 23:59 Weight 118.433 kg - General Appearance General appearance: Present: well-developed, well-nourished, appears started age , fatigue, frail EENT: Present: ATNC, PERRL, mucous membranes moist Neck: Present: supple Respiratory: Present: course breath sounds Cardiology: Present: edema, normal S1, normal S2 Dialysis Vascular Access: Venous Catheter ([facility] HD catheter was C/D/I) Gastrointestinal: Present: normoactive bowel sounds, no tenderness Integumentary: Present: no rash, warm and dry Neurologic: Present: no focal deficit, no asterixis, alert and oriented x3 Musculoskeletal: Present: no deformities, no erythema, no cyanosis Psychiatric: Present: mood/affect appropriate, cooperative - Lab 03/07/17 03:34 03/07/17 03:34 Most recent lab results Calcium 9.3 mg/dL (8.6-10.8) 03/03/17 03:55 Phosphorus 3.4 mg/dL (2.3-4.7) 02/28/17 13:05 Magnesium 2.0 mg/dL (1.6-2.6) 03/03/17 03:55 - VTE Documentation of Mechanical Device: Intermittent pneumatic compression device Consult Discharge Plan - Plan Referrals: Brandie Lion MD [Primary Care Provider] -
[2017-03-03] MEDS: Calcium Chloride 4,000 MG in 0.9 % Sodium Chloride 1,000 ML CRRT SCH (14:25)
[2017-03-03] MEDS: *HR* Metoprolol 5 MG/5 ML VIAL IVP SCH (18:49)
[2017-03-04] MEDS: *HR* Metoprolol 5 MG/5 ML VIAL IVP SCH ×4 (00:18→17:20)
[2017-03-04] MEDS: Calcium Gluconate 1,000 MG in D5% in Water 100 ML IVPB PRN ×4 (01:21→12:05)
[2017-03-04] MEDS: PrismaSATE BGK 4/2.5 5,000 ML CRRT SCH ×8 (02:37→15:30)
[2017-03-04] MEDS: Calcium Chloride 4,000 MG in 0.9 % Sodium Chloride 1,000 ML CRRT SCH ×2 (03:01→12:35)
[2017-03-04 04:07] LABS: Basophils % 0.3 %; Eosinophils # 0.1 K/mcL (0.0-0.6); Eosinophils % 0.5 %; Hematocrit 29.1 % (35.3-44.9); Hemoglobin 8.8 g/dL (11.5-15.4); Lymphocytes # 0.7 K/mcL (0.6-4.6); Lymphocytes % 5.7 %; Mean Corpuscular HGB Conc 30.2 g/dL (31.6-35.5); Mean Platelet Volume 10.5 fL (9.4-12.4); Monocytes # 0.9 K/mcL (0.0-1.3); Monocytes % 7.1 %; Neutrophils # 10.1 K/mcL (1.6-8.9); Nucleated Red Blood Cells 1.3 /100 WBC (0); Platelet Count 128 K/mcL (140-400); Red Blood Count 3.03 M/mcL (3.82-4.97); Red Cell Distribution Width 19.9 % (11.5-14.5); Segmented Neutrophils % 84.4 %
[2017-03-04 04:13] LABS: Ionized Calcium 1.01 mmol/L (1.15-1.35)
[2017-03-04 04:14] LABS: INR 1.4; Prothrombin Time 15.3 Seconds (9.4-12.1)
[2017-03-04 04:18] LABS: Activated Partial Thrombo Time 51.5 Seconds (26.0-36.0)
[2017-03-04 04:24] LABS: Magnesium 1.6 mg/dL (1.6-2.6); Phosphorous 1.2 mg/dL (2.3-4.7)
[2017-03-04 04:27] LABS: Albumin 2.2 g/dL (3.5-5.0); Albumin/Globulin Ratio 0.6 (1.1-2.2); Bilirubin,Total 0.4 mg/dL (0.2-1.2); Calcium 9.7 mg/dL (8.6-10.8); Globulin 3.5 g/dL (2.4-3.5); Potassium 4.1 mEq/L (3.5-4.5); Total Protein 5.7 g/dL (6.0-8.3)
[2017-03-04] MEDS: Sodium Phosphate 30 MMOL in D5% in Water 100 ML IVPB PRN ×2 (05:20→22:10)
[2017-03-04] MEDS: Magnesium Sulfate 2 GM in D5% in Water 100 ML IVPB PRN ×2 (05:35→22:10)
[2017-03-04] MEDS: Pantoprazole 40 MG VIAL IVP SCH ×2 (05:44→17:19)
[2017-03-04] MEDS: Budesonide/Formoterol 160/4.5 MDI IH SCH ×2 (07:38→21:30)
--- NOTE | 2017-03-04 08:15 | Pulmonology Progress Note ---
<Jose Geiger - Last Filed: 03/04/17 10:42> Date of Encounter: 03/04/17 Time of Encounter: 08:12 Assessment and Plan (1) Upper GI bleed Current Visit: Yes Status: Acute Patient has been having hematochezia and melena prior to admission. She normally stays at a care facility and was brought [facility] and was then transferred to [facility] for further evaluation. Patient is received 4 units of blood during her course of stay in the hospital. Her current hemoglobin is 8.8 and appears to be stable at this time. They repeated the EGD found a couple of telangiectasias which were cauterized. Patient has been advanced to clear liquid diet. (2) Anemia Current Visit: No Status: Chronic Patient is currently anemic. Her hemoglobin seems to be stabilizing and is currently 8.8. This is likely due to a GI bleed and chronic kidney disease. Gastroenterology has been consult on this patient. The patient has received 4 units of blood over the course of her hospital stay. Her current hemoglobin is 8.8. It appears that her hemoglobin is beginning to stabilize. We will continue to follow this patient's hemoglobin. GI did repeat EGD and found a couple of telangiectasias for which they cauterized. Iron supplementation has been ordered for the patient Qualifiers: Anemia type: due to chronic kidney disease Chronic kidney disease stage: on chronic dialysis Qualified Code(s): N18.6 - End stage renal disease; D63.1 - Anemia in chronic kidney disease; Z99.2 - Dependence on renal dialysis (3) Hypotension Current Visit: Yes Status: Acute Patient had hypotension but her current blood pressure is in the low 100s over 70s. Our goal is to maintain a map greater than 60. We have ordered Levophed but had not started it due to patient maintaining her current blood pressure and MAP. We will continue to monitor the patient's blood pressure. Qualifiers: Hypotension type: unspecified hypotension type Qualified Code(s): I95.9 - Hypotension, unspecified (4) ESRD (end stage renal disease) on dialysis Current Visit: No Status: Chronic Patient has a history of end-stage renal disease requiring dialysis. Patient does not make any urine. Nephrology has been consult and is seeing the patient. Patient is currently on Heavenly per nephrology (5) Chronic a-fib Current Visit: No Status: Chronic Patient has a history of chronic atrial fibrillation. Patient's heart rate was somewhat irregular this morning with a rate in the 80s. Digoxin is been started in the last dose was given yesterday 0.0625 mg. Her current digoxin level is 1.3. We did not start her on amiodarone for concern of worsening of hypotension and the possibility of chemical cardioversion which could lead to ischemic stroke. (6) DVT prophylaxis Current Visit: No Status: Acute Due to the patient's possible GI bleed and anemia we will not start any blood thinners for DVT prophylaxis at this time. SCDs have been ordered for this patient for DVT prophylaxis. Subjective Principal diagnosis: GI Bleed Interval history: Patient states that she is doing well today and is feeling much better. Patient did well overnight. She states that she is not having any pain at this time. This has been a significant improvement. Nursing states that she did well overnight and is no longer requiring pain medications. Objective PUL Vital signs: Last Vital Signs Temp 97.7 F 03/04/17 04:00 Pulse 91 03/04/17 07:00 Resp 20 03/04/17 07:38 BP 100/51 03/04/17 07:00 Pulse Ox 98 03/04/17 07:38 General appearance: no acute distress Eyes: nonicteric ENT: oropharynx dry Neck: supple, no JVD Effort: normal Auscultation: bilateral: clear Cardiovascular: irregular rhythm Gastrointestinal: normoactive bowel sounds Integumentary: other (Ecchymosis bilateral upper extremity) Extremities: no cyanosis, no edema Musculoskeletal: no deformities normal mental status (Alert and oriented 3), non-focal exam, other (Patient have a moment of confusion where she thought she was going to visit her grandparents but corrected herself.) mood appropriate, affect normal Results - Laboratory Findings CBC and BMP: 03/04/17 03:46 03/04/17 03:46 PT/INR, D-dimer PT 15.3 Seconds (9.4-12.1) H 03/04/17 03:46 Abnormal lab findings: Abnormal lab results WBC 12.0 K/mcL (4.3-11.1) H 03/04/17 03:46 RBC 3.03 M/mcL (3.82-4.97) L 03/04/17 03:46 Hgb 8.8 g/dL (11.5-15.4) L 03/04/17 03:46 Hct 29.1 % (35.3-44.9) L 03/04/17 03:46 MCHC 30.2 g/dL (31.6-35.5) L 03/04/17 03:46 RDW 19.9 % (11.5-14.5) H 03/04/17 03:46 Plt Count 128 K/mcL (140-400) L 03/04/17 03:46 Band Neutrophils % 12.0 % (0-4) H 02/28/17 00:45 Neutrophils # 10.1 K/mcL (1.6-8.9) H 03/04/17 03:46 Nucleated RBCs/100 WBC 1.3 /100 WBC (0) H 03/04/17 03:46 Large Platelets Present (Not Present) A 02/28/17 00:45 Polychromasia 1+ (Not Present) A 02/28/17 08:45 Hypochromasia Present (Not Present) A 02/28/17 00:45 Anisocytosis 1+ (Not Present) A 02/28/17 08:45 Microcytosis Present (Not Present) A 02/28/17 00:45 PT 15.3 Seconds (9.4-12.1) H 03/04/17 03:46 APTT 51.5 Seconds (26.0-36.0) H D 03/04/17 03:46 Creatinine 1.23 mg/dL (0.57-1.11) H D 03/04/17 03:46 Est GFR ( Amer) 52 (> 60) L 03/04/17 03:46 Est GFR (Non-Af Amer) 43 (> 60) L 03/04/17 03:46 Glucose 116 mg/dL (70-99) H 03/04/17 03:46 POC Glucose 111 (58-89) H 03/03/17 20:35 Ionized Calcium 1.11 mmol/L (1.15-1.35) L 03/04/17 05:54 Phosphorus 1.2 mg/dL (2.3-4.7) L 03/04/17 03:46 Iron 24 mcg/dL (50-170) L 03/01/17 11:25 Transferrin 116 mg/dL (180-382) L 03/01/17 11:25 Ferritin 9740 ng/ml (5-204) H 03/01/17 11:25 Serum Total Protein 5.7 g/dL (6.0-8.3) L 03/04/17 03:46 Albumin 2.2 g/dL (3.5-5.0) L 03/04/17 03:46 Albumin/Globulin Ratio 0.6 (1.1-2.2) L 03/04/17 03:46 Triglycerides 193 mg/dL (< 150) H 02/28/17 00:45 VLDL Cholesterol, Calc 39 mg/dL (< 31) H 02/28/17 00:45 HDL Cholesterol 21 mg/dL (40-59) L 02/28/17 00:45 Stool Occult Blood Positive (Negative) A 02/28/17 01:50 - Clinical Findings Intake & Output: Intake & Output 03/03/17 03/04/17 03/04/17 23:59 07:59 15:59 Intake Total 897 / 897 531.1 / 531.1 Output Total 1228 / 1228 1338 / 1338 Balance -331 / -331 -806.9 / -806.9 - VTE Documentation of Mechanical Device: Intermittent pneumatic compression device Consult Discharge Plan - Plan Referrals: Brandie Lion MD [Primary Care Provider] - <Nannette Howard S - Last Filed: 03/04/17 15:22> Date of Encounter: 03/04/17 Objective PUL Vital signs: Last Vital Signs Temp 97.7 F 03/04/17 08:00 Pulse 81 03/04/17 14:00 Resp 20 03/04/17 14:00 BP 128/100 03/04/17 14:00 Pulse Ox 100 03/04/17 14:00 Results - Laboratory Findings CBC and BMP: 03/04/17 03:46 03/04/17 03:46 PT/INR, D-dimer PT 15.3 Seconds (9.4-12.1) H 03/04/17 03:46 Abnormal lab findings: Abnormal lab results WBC 12.0 K/mcL (4.3-11.1) H 03/04/17 03:46 RBC 3.03 M/mcL (3.82-4.97) L 03/04/17 03:46 Hgb 8.8 g/dL (11.5-15.4) L 03/04/17 03:46 Hct 29.1 % (35.3-44.9) L 03/04/17 03:46 MCHC 30.2 g/dL (31.6-35.5) L 03/04/17 03:46 RDW 19.9 % (11.5-14.5) H 03/04/17 03:46 Plt Count 128 K/mcL (140-400) L 03/04/17 03:46 Band Neutrophils % 12.0 % (0-4) H 02/28/17 00:45 Neutrophils # 10.1 K/mcL (1.6-8.9) H 03/04/17 03:46 Nucleated RBCs/100 WBC 1.3 /100 WBC (0) H 03/04/17 03:46 Large Platelets Present (Not Present) A 02/28/17 00:45 Polychromasia 1+ (Not Present) A 02/28/17 08:45 Hypochromasia Present (Not Present) A 02/28/17 00:45 Anisocytosis 1+ (Not Present) A 02/28/17 08:45 Microcytosis Present (Not Present) A 02/28/17 00:45 PT 15.3 Seconds (9.4-12.1) H 03/04/17 03:46 APTT 51.5 Seconds (26.0-36.0) H D 03/04/17 03:46 Creatinine 1.23 mg/dL (0.57-1.11) H D 03/04/17 03:46 Est GFR ( Amer) 52 (> 60) L 03/04/17 03:46 Est GFR (Non-Af Amer) 43 (> 60) L 03/04/17 03:46 Glucose 116 mg/dL (70-99) H 03/04/17 03:46 POC Glucose 111 (58-89) H 03/03/17 20:35 Ionized Calcium 0.90 mmol/L (1.15-1.35) L 03/04/17 12:45 Phosphorus 1.2 mg/dL (2.3-4.7) L 03/04/17 03:46 Iron 24 mcg/dL (50-170) L 03/01/17 11:25 Transferrin 116 mg/dL (180-382) L 03/01/17 11:25 Ferritin 9740 ng/ml (5-204) H 03/01/17 11:25 Serum Total Protein 5.7 g/dL (6.0-8.3) L 03/04/17 03:46 Albumin 2.2 g/dL (3.5-5.0) L 03/04/17 03:46 Albumin/Globulin Ratio 0.6 (1.1-2.2) L 03/04/17 03:46 Triglycerides 193 mg/dL (< 150) H 02/28/17 00:45 VLDL Cholesterol, Calc 39 mg/dL (< 31) H 02/28/17 00:45 HDL Cholesterol 21 mg/dL (40-59) L 02/28/17 00:45 Stool Occult Blood Positive (Negative) A 02/28/17 01:50 - Clinical Findings Intake & Output: Intake & Output 03/03/17 03/04/17 03/04/17 23:59 07:59 15:59 Intake Total 897 / 897 641.1 / 641.1 1140 / 1140 Output Total 1228 / 1228 1338 / 1338 1707 / 1707 Balance -331 / -331 -696.9 / -696.9 -567 / -567 - Attending Attestation I saw the patient with the resident agree with History and Physical exam findings. Labs and Radiology were reviewed VAMP MAKER: Patient is conscious oriented x3 following commands , but occasionally she has brief episodes of confusion but overall she is doing better. NECK : No JVD appreciated because of body habitus , has RIJ triple lumen dialysis catheter working well Pulmonary : Patient has O2 requirements due to bibasilar atelectasis and fluid overloaded wean FIO2 as tolerated Cardiac : Patient was hemodynamically stable overnight. Patient tolerated the CVVH, atrial fibrillation rate was controlled with good hemodynamics. Continue digoxin renally dosed. Monitor dig levels. Will continue when necessary beta blockers. Nutrition/GI: Patient presented with GI bleed due to gastric telangiectasia which was cauterized. Patient did not have bleeding symptoms. Past 3 days. He will continue IV PPI twice a day. Will advance diet as tolerated . Renal : Chronic Kidney disease on HD because of border line BP patient is on CVVH , Nephrology following appreciate their further recommendations. Heme onc : Chronic anemia complicated by Chronic kidney disease worsened by GI bleed , noW HB stable . Started on Epo and simultaneously and iron stores . Endo: Stable Lines : Patient has a femoral line , patient has difficult IV access with CVVH we need extra access once patient is off CVVH and transitioned to HD will remove femoral line. Disposition : When transitioned to HD patient can be transferred to the floor . Code status: Full Code
[2017-03-04] MEDS: Calcium Acetate 667 MG CAPSULE PO SCH ×3 (08:21→17:19)
[2017-03-04] MEDS: Docusate Oral Soln 100 MG/10 ML UDC PO SCH (08:22)
[2017-03-04] MEDS: Norepinephrine 4 MG in D5% in Water 250 ML IVC SCH (08:23)
[2017-03-04] MEDS: Ascorbic Acid 500 MG TABLET PO SCH (08:32)
[2017-03-04] MEDS: Gabapentin 100 MG CAPSULE PO SCH ×2 (08:32→20:53)
[2017-03-04] MEDS: Anastrozole 1 MG TABLET PO SCH (08:33)
--- NOTE | 2017-03-04 10:18 | Electrocardiograph Report ---
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
--- NOTE | 2017-03-04 10:24 | Nephrology Progress Note ---
Date of Encounter: 03/04/17 Time of Encounter: 09:00 - Assessment and Plan (1) ESRD (end stage renal disease) on dialysis Current Visit: Yes Status: Chronic Improving from both a clearance and volume perspective with Heavenly. Her BPs / Hemodynamics are trending better, so will hold Heavenly at the end of the day shift or sooner if the filter clots. Will tentatively plan for resumption of iHD on Sunday (tomorrow). If iHD goes well, then will have the RIJ temporary HD catheter removed. (2) Hypotension Current Visit: Yes Status: Acute Trending better Qualifiers: Hypotension type: unspecified hypotension type Qualified Code(s): I95.9 - Hypotension, unspecified (3) Lower gastrointestinal bleed Current Visit: Yes Status: Acute As per primary (4) Anemia in CKD (chronic kidney disease) Current Visit: No Status: Acute Goal Hgb 10-11. Will monitor Qualifiers: Chronic kidney disease stage: stage 4 (severe) Qualified Code(s): N18.4 - Chronic kidney disease, stage 4 (severe); D63.1 - Anemia in chronic kidney disease (5) Hyperkalemia Current Visit: No Status: Resolved Improved with CRRT (6) Hypervolemia Current Visit: No Status: Acute See above. Improved with CRRT Qualifiers: Hypervolemia type: other Qualified Code(s): E87.79 - Other fluid overload (7) Uremia Current Visit: No Status: Acute Improved though she has what may be ICU delirium. Subjective Principal diagnosis: GI Bleed Interval history: Pt was s/e earlier today. She was reported to have some delirium. She did not affirm N/V/D or uremic. Objective - Vital Signs Vital signs: Vital Signs Temp Pulse Resp BP Pulse Ox 03/04/17 10:00 101 18 105/61 100 03/04/17 09:00 86 20 115/81 98 03/04/17 08:00 97.7 F 85 18 114/63 97 03/04/17 07:38 20 98 03/04/17 07:00 91 18 100/51 94 03/04/17 06:15 89 14 100/77 99 03/04/17 05:00 100 16 105/52 96 03/04/17 04:00 97.7 F 89 18 93/58 93 03/04/17 03:00 105 16 90/62 95 03/04/17 02:00 89 20 100/57 98 03/04/17 01:00 92 20 105/67 99 03/04/17 00:00 86 18 103/60 96 03/03/17 23:00 102 22 124/75 92 03/03/17 22:30 99 24 107/63 93 03/03/17 21:00 96 18 116/88 96 03/03/17 20:15 20 98 03/03/17 20:00 97.5 F L 100 22 148/58 96 03/03/17 19:00 102 18 101/87 100 03/03/17 18:00 98 20 112/86 100 03/03/17 17:00 84 18 130/110 97 03/03/17 16:00 105 18 136/101 90 03/03/17 15:29 97.7 F 03/03/17 15:00 95 18 114/84 90 03/03/17 14:00 92 20 122/89 94 03/03/17 13:00 93 20 114/71 90 03/03/17 12:00 106 20 127/106 91 03/03/17 11:00 112 20 125/93 96 Intake and Output 03/03/17 03/04/17 03/04/17 23:59 07:59 15:59 Intake Total 897 / 897 531.1 / 531.1 690 / 690 Output Total 1228 / 1228 1338 / 1338 687 / 687 Balance -331 / -331 -806.9 / -806.9 Intake: IV Fluids 867 / 867 531.1 / 531.1 590 / 590 Calcium Chloride 4,000 MG 427 / 427 311.1 / 311.1 590 / 590 In 0.9 % Sodium Chloride 1,000 ML @ 40 mls/hr CRRT CONT LINDA Rx#: [id number] PrismaSATE BGK 4/2.5 5, 0 / 0 000 ML @ 1250 mls/hr CRRT CONT LINDA Rx#:[id number] Calcium Gluconate 1,000 440 / 440 220 / 220 MG In Dextrose 5% 100 ML @ 220 mls/hr IVPB ONCE PRN Rx#:[id number] Oral 30 / 30 0 / 0 100 / 100 Output: Urine 0 / 0 0 / 0 0 / 0 Heavenly 1228 / 1228 1338 / 1338 687 / 687 Other: Stool Size Small Small Stool Characteristics Mucoid Mucoid Stool Color Yellow Brown Blood Glucose* 111 112 - General Appearance Exam: General appearance: Present: well-developed, well-nourished, appears started age , fatigue, frail EENT: Present: ATNC, PERRL, mucous membranes moist Neck: Present: supple Respiratory: Present: course breath sounds Cardiology: Present: edema, normal S1, normal S2 Dialysis Vascular Access: Venous Catheter ([facility] HD catheter was C/D/I) Gastrointestinal: Present: normoactive bowel sounds, no tenderness Integumentary: Present: no rash, warm and dry Neurologic: Present: no focal deficit, no asterixis, alert and oriented x3 Musculoskeletal: Present: no deformities, no erythema, no cyanosis Psychiatric: Present: mood/affect appropriate, cooperative - Lab 03/07/17 03:34 03/07/17 03:34 Most recent lab results Calcium 9.7 mg/dL (8.6-10.8) 03/04/17 03:46 Phosphorus 1.2 mg/dL (2.3-4.7) L 03/04/17 03:46 Magnesium 1.6 mg/dL (1.6-2.6) 03/04/17 03:46 - VTE Documentation of Mechanical Device: Intermittent pneumatic compression device Consult Discharge Plan - Plan Referrals: Brandie Lion MD [Primary Care Provider] -
[2017-03-04] MEDS ORDERED: 0.9 % Sodium Chloride 500 ML ONE (14:02)
[2017-03-04] MEDS ORDERED: *HR* Heparin 5,000 UNIT/ML VIAL ONE (18:10)
[2017-03-04] MEDS: *HR* FentaNYL (PF) 100 MCG/2 ML VIAL IVP PRN (20:59)
[2017-03-05] MEDS: *HR* Metoprolol 5 MG/5 ML VIAL IVP SCH ×5 (00:18→23:07)
[2017-03-05 04:51] LABS: INR 1.4
[2017-03-05 04:53] LABS: Basophils # 0.1 K/mcL (0.0-0.2); Basophils % 0.7 %; Eosinophils % 1.2 %; Hematocrit 28.2 % (35.3-44.9); Hemoglobin 8.4 g/dL (11.5-15.4); Immature Granulocytes % 6.1 % (0-4); Lymphocytes # 1.3 K/mcL (0.6-4.6); Mean Corpuscular HGB Conc 29.8 g/dL (31.6-35.5); Mean Corpuscular Hemoglobin 28.7 pg (28.0-33.3); Mean Corpuscular Volume 96.2 fL (83.0-100.0); Mean Platelet Volume 10.5 fL (9.4-12.4); Monocytes # 1.1 K/mcL (0.0-1.3); Monocytes % 9.3 %; Neutrophils # 8.7 K/mcL (1.6-8.9); Nucleated Red Blood Cells 1.2 /100 WBC (0); Platelet Count 143 K/mcL (140-400); Red Blood Count 2.93 M/mcL (3.82-4.97); Red Cell Distribution Width 20.3 % (11.5-14.5); Segmented Neutrophils % 71.7 %
[2017-03-05 04:54] LABS: Activated Partial Thrombo Time 43.8 Seconds (26.0-36.0)
[2017-03-05 04:55] LABS: Eosinophils # 0.2 K/mcL (0.0-0.6)
[2017-03-05 04:56] LABS: Magnesium 2.6 mg/dL (1.6-2.6)
[2017-03-05 04:57] LABS: Phosphorous 4.3 mg/dL (2.3-4.7)
[2017-03-05 04:58] LABS: Albumin 2.2 g/dL (3.5-5.0); Albumin/Globulin Ratio 0.7 (1.1-2.2); Bilirubin,Total 0.6 mg/dL (0.2-1.2); Globulin 3.2 g/dL (2.4-3.5); Potassium 3.9 mEq/L (3.5-4.5); Total Protein 5.4 g/dL (6.0-8.3)
[2017-03-05 05:02] LABS: Calcium 11.3 mg/dL (8.6-10.8)
[2017-03-05 05:07] LABS: Ionized Calcium 1.57 mmol/L (1.15-1.35)
[2017-03-05 05:42] LABS: Anisocytosis 1+ (Not Present); Platelet Estimate Normal (Normal); Polychromasia 1+ (Not Present)
[2017-03-05] MEDS: Pantoprazole 40 MG VIAL IVP SCH ×2 (06:21→17:58)
[2017-03-05] MEDS: Budesonide/Formoterol 160/4.5 MDI IH SCH ×2 (07:40→19:45)
[2017-03-05] MEDS ORDERED: 0.9 % Sodium Chloride 250 ML IVC PRN ×2 (08:25→13:51)
[2017-03-05] MEDS: Gabapentin 100 MG CAPSULE PO SCH ×3 (08:32→22:42)
[2017-03-05] MEDS: Docusate Oral Soln 100 MG/10 ML UDC PO SCH (08:32)
[2017-03-05] MEDS: Anastrozole 1 MG TABLET PO SCH (08:32)
[2017-03-05] MEDS: Calcium Acetate 667 MG CAPSULE PO SCH ×3 (08:32→16:01)
[2017-03-05] MEDS: Ascorbic Acid 500 MG TABLET PO SCH (08:32)
[2017-03-05] MEDS ORDERED: *HR* Heparin 10,000 UNIT/10 ML VIAL IV PRN (09:14)
--- NOTE | 2017-03-05 09:49 | Pulmonology Progress Note ---
<DenishamargaritaVikram aiken W - Last Filed: 03/05/17 10:11> Date of Encounter: 03/05/17 Objective PUL Vital signs: Last Vital Signs Temp 97.4 F L 03/05/17 07:34 Pulse 86 03/05/17 09:00 Resp 20 03/05/17 09:00 BP 130/68 03/05/17 09:00 Pulse Ox 97 03/05/17 09:00 Results - Laboratory Findings CBC and BMP: 03/05/17 04:34 03/05/17 04:34 PT/INR, D-dimer PT 15.0 Seconds (9.4-12.1) H 03/05/17 04:34 Abnormal lab findings: Abnormal lab results WBC 12.1 K/mcL (4.3-11.1) H 03/05/17 04:34 RBC 2.93 M/mcL (3.82-4.97) L 03/05/17 04:34 Hgb 8.4 g/dL (11.5-15.4) L 03/05/17 04:34 Hct 28.2 % (35.3-44.9) L 03/05/17 04:34 MCHC 29.8 g/dL (31.6-35.5) L 03/05/17 04:34 RDW 20.3 % (11.5-14.5) H 03/05/17 04:34 Immature Gran % 6.1 % (0-4) H 03/05/17 04:34 Band Neutrophils % 12.0 % (0-4) H 02/28/17 00:45 Nucleated RBCs/100 WBC 1.2 /100 WBC (0) H 03/05/17 04:34 Large Platelets Present (Not Present) A 02/28/17 00:45 Polychromasia 1+ (Not Present) A 03/05/17 04:34 Hypochromasia Present (Not Present) A 02/28/17 00:45 Anisocytosis 1+ (Not Present) A 03/05/17 04:34 Microcytosis Present (Not Present) A 02/28/17 00:45 PT 15.0 Seconds (9.4-12.1) H 03/05/17 04:34 APTT 43.8 Seconds (26.0-36.0) H 03/05/17 04:34 Creatinine 1.65 mg/dL (0.57-1.11) H 03/05/17 04:34 Est GFR ( Amer) 37 (> 60) L 03/05/17 04:34 Est GFR (Non-Af Amer) 31 (> 60) L 03/05/17 04:34 POC Glucose 157 (58-89) H 03/04/17 19:30 Calcium 11.3 mg/dL (8.6-10.8) H D 03/05/17 04:34 Ionized Calcium 1.57 mmol/L (1.15-1.35) H 03/05/17 04:34 Iron 24 mcg/dL (50-170) L 03/01/17 11:25 Transferrin 116 mg/dL (180-382) L 03/01/17 11:25 Ferritin 9740 ng/ml (5-204) H 03/01/17 11:25 Serum Total Protein 5.4 g/dL (6.0-8.3) L 03/05/17 04:34 Albumin 2.2 g/dL (3.5-5.0) L 03/05/17 04:34 Albumin/Globulin Ratio 0.7 (1.1-2.2) L 03/05/17 04:34 Triglycerides 193 mg/dL (< 150) H 02/28/17 00:45 VLDL Cholesterol, Calc 39 mg/dL (< 31) H 02/28/17 00:45 HDL Cholesterol 21 mg/dL (40-59) L 02/28/17 00:45 Stool Occult Blood Positive (Negative) A 02/28/17 01:50 - Microbiology Findings Microbiology Findings: Microbiology, Last 48 Hours 02/28/17 07:01 Blood Culture - Final Peripheral Venipuncture No growth. 02/28/17 07:01 Blood Culture - Final Peripheral Venipuncture No growth. - Clinical Findings Intake & Output: Intake & Output 03/04/17 03/05/17 03/05/17 23:59 07:59 15:59 Intake Total 470 / 470 119 / 119 60 / 60 Output Total 522 / 522 0 / 0 Balance -52 / -52 119 / 119 60 / 60 Weight 114.351 kg Consult Discharge Plan - Plan Referrals: Brandie Lion MD [Primary Care Provider] - - Attending Attestation I examined this patient and my medical decision-making was reviewed with the Resident Physician. I agree with the documented findings, disposition and treatment plan as described except to the extent set forth below. We independently had [id number] contact with the patient Patient seen and examined at bedside Labs, radiology, chart personally reviewed. Management was reviewed during multidisciplinary critical care rounds. Neuropsych: Mild Delirium (iwthout focal neuro deficit) multifactorial including possible ICU psychosis. Avoid [employer] depressants, Focus on Sleep [facility]. Pulm: Acceptable o2 on nasal cannula O2 OOBTC and Incentive Spirometry. Wean Fio2 to keep sats >89% Cards: Hemodynamically stable. History of afib rate controlled on BB. No LTA for concern of GI bleed. FEN-GI:Acute GI bleed stable Hgb no overt signs of Gi bleeding. Cont to Monitor whe has been seen by GI. Cont PPI. NPO for now as tolerated. Renal: Intermittent HD today pressures tolerating. Neprho following. fistula may have cltted IR consult ID: No obvious infection cont to monitor. Heme/Onc:stable anemia. plts stable. PTT elevated likely s/t to heparin through Heavenly circuit will recheck later in day. Cont Mechanical SCDs. Endo: Glucose Monitored. Integ/MSK: PT/OT consult Lines: All lines examined without evidence of infection including: Rigth Temp CVC dialysis catheter. Dispo: Transfer to Med/tele for ongoing care. CODE:Full <Jose Geiger - Last Filed: 03/05/17 14:10> Date of Encounter: 03/05/17 Time of Encounter: 09:48 Assessment and Plan (1) Upper GI bleed Current Visit: Yes Status: Acute Patient has been having hematochezia and melena prior to admission. She normally stays at a care facility and was brought [facility] and was then transferred to [facility] for further evaluation. Patient is received 4 units of blood during her course of stay in the hospital. Her current hemoglobin is 8.4. We will continue to monitor this patient's hemoglobin. Patient had one bowel movement that was blood-tinged. They repeated the EGD found a couple of telangiectasias which were cauterized. Patient has been advanced to clear liquid diet. This patient appears to be stable at this time and can be transferred to telemetry bed and renal unit. (2) Anemia Current Visit: No Status: Chronic Patient is currently anemic. Her hemoglobin is currently 8.4. This is likely due to a GI bleed and chronic kidney disease. Gastroenterology has been consult on this patient. The patient has received 4 units of blood over the course of her hospital stay. Her current hemoglobin is 8.4. It is not uncommon for the patient to have a hemoglobin in the 8-9 range. Patient had one blood tinged bowel movement. There was slight decrease in her hemoglobin from 8.8 to 8.4. We will continue to follow this patient's hemoglobin. GI did an EGD last week and found a couple of telangiectasias for which they cauterized. Iron supplementation has been ordered for the patient (3) Hypotension Current Visit: Yes Status: Acute Patient had hypotension but her current blood pressure is in the 130s over 70s. Our goal is to maintain a map greater than 60. We have ordered Levophed but had not started it due to patient maintaining her current blood pressure and MAP. We will continue to monitor the patient's blood pressure. Qualifiers: Hypotension type: unspecified hypotension type Qualified Code(s): I95.9 - Hypotension, unspecified (4) ESRD (end stage renal disease) on dialysis Current Visit: No Status: Chronic Patient has a history of end-stage renal disease requiring dialysis. Patient does not make any urine. Nephrology has been consult and is seeing the patient. Patient is is going to have intermittent HD today. Nephrology and mentioned that the patient's fistula no longer has a thrill that he will be contacting interventional radiology to evaluate this. (5) Chronic a-fib Current Visit: No Status: Chronic Patient has a history of chronic atrial fibrillation. Patient's heart rate was somewhat irregular this morning with a rate in the 90s. We will continue to use lopressor for rate control. We did not start her on amiodarone for concern of worsening of hypotension and the possibility of chemical cardioversion which could lead to ischemic stroke. (6) DVT prophylaxis Current Visit: No Status: Acute Due to the patient's possible GI bleed and anemia we will not start any blood thinners for DVT prophylaxis at this time. SCDs have been ordered for this patient for DVT prophylaxis. Subjective Principal diagnosis: GI Bleed Interval history: Patient states that she is doing well today. Patient did well overnight. She states that she is not having any pain at this time. This has been a significant improvement. Nursing states that she did well overnight and is no longer requiring pain medications today but had some overnight to help with some pain when she was going to sleep. Objective PUL Vital signs: Last Vital Signs Temp 97.4 F L 03/05/17 07:34 Pulse 86 03/05/17 09:00 Resp 20 03/05/17 09:00 BP 130/68 03/05/17 09:00 Pulse Ox 97 03/05/17 09:00 General appearance: no acute distress Eyes: nonicteric ENT: oropharynx dry Neck: supple Effort: normal Cardiovascular: irregular rhythm Gastrointestinal: normoactive bowel sounds, tender (Mild diffuse tenderness) Extremities: no cyanosis, no edema Musculoskeletal: no deformities non-focal exam, pupils equal and round (Patient was oriented to person but not to place and time.), CN II-XII normal, motor strength normal and symmetric, other mood appropriate, affect normal Results - Laboratory Findings CBC and BMP: 03/05/17 04:34 03/05/17 04:34 PT/INR, D-dimer PT 15.0 Seconds (9.4-12.1) H 03/05/17 04:34 Abnormal lab findings: Abnormal lab results WBC 12.1 K/mcL (4.3-11.1) H 03/05/17 04:34 RBC 2.93 M/mcL (3.82-4.97) L 03/05/17 04:34 Hgb 8.4 g/dL (11.5-15.4) L 03/05/17 04:34 Hct 28.2 % (35.3-44.9) L 03/05/17 04:34 MCHC 29.8 g/dL (31.6-35.5) L 03/05/17 04:34 RDW 20.3 % (11.5-14.5) H 03/05/17 04:34 Immature Gran % 6.1 % (0-4) H 03/05/17 04:34 Band Neutrophils % 12.0 % (0-4) H 02/28/17 00:45 Nucleated RBCs/100 WBC 1.2 /100 WBC (0) H 03/05/17 04:34 Large Platelets Present (Not Present) A 02/28/17 00:45 Polychromasia 1+ (Not Present) A 03/05/17 04:34 Hypochromasia Present (Not Present) A 02/28/17 00:45 Anisocytosis 1+ (Not Present) A 03/05/17 04:34 Microcytosis Present (Not Present) A 02/28/17 00:45 PT 15.0 Seconds (9.4-12.1) H 03/05/17 04:34 APTT 43.8 Seconds (26.0-36.0) H 03/05/17 04:34 Creatinine 1.65 mg/dL (0.57-1.11) H 03/05/17 04:34 Est GFR ( Amer) 37 (> 60) L 03/05/17 04:34 Est GFR (Non-Af Amer) 31 (> 60) L 03/05/17 04:34 POC Glucose 157 (58-89) H 03/04/17 19:30 Calcium 11.3 mg/dL (8.6-10.8) H D 03/05/17 04:34 Ionized Calcium 1.57 mmol/L (1.15-1.35) H 03/05/17 04:34 Iron 24 mcg/dL (50-170) L 03/01/17 11:25 Transferrin 116 mg/dL (180-382) L 03/01/17 11:25 Ferritin 9740 ng/ml (5-204) H 03/01/17 11:25 Serum Total Protein 5.4 g/dL (6.0-8.3) L 03/05/17 04:34 Albumin 2.2 g/dL (3.5-5.0) L 03/05/17 04:34 Albumin/Globulin Ratio 0.7 (1.1-2.2) L 03/05/17 04:34 Triglycerides 193 mg/dL (< 150) H 02/28/17 00:45 VLDL Cholesterol, Calc 39 mg/dL (< 31) H 02/28/17 00:45 HDL Cholesterol 21 mg/dL (40-59) L 02/28/17 00:45 Stool Occult Blood Positive (Negative) A 02/28/17 01:50 - Microbiology Findings Microbiology Findings: Microbiology, Last 48 Hours 02/28/17 07:01 Blood Culture - Final Peripheral Venipuncture No growth. 02/28/17 07:01 Blood Culture - Final Peripheral Venipuncture No growth. - Clinical Findings Intake & Output: Intake & Output 03/04/17 03/05/17 03/05/17 23:59 07:59 15:59 Intake Total 470 / 470 119 / 119 60 / 60 Output Total 522 / 522 0 / 0 Balance -52 / -52 119 / 119 60 / 60 Weight 114.351 kg - VTE Documentation of Mechanical Device: Intermittent pneumatic compression device
[2017-03-05 10:31] LABS: INR 1.4; Prothrombin Time 15.3 Seconds (9.4-12.1)
[2017-03-05 10:34] LABS: Activated Partial Thrombo Time 37.7 Seconds (26.0-36.0)
[2017-03-05] MEDS: Norepinephrine 4 MG in D5% in Water 250 ML IVC SCH (11:42)
--- NOTE | 2017-03-05 11:42 | Nephrology Progress Note ---
Date of Encounter: 03/05/17 Time of Encounter: 08:55 - Assessment and Plan (1) ESRD (end stage renal disease) on dialysis Current Visit: Yes Status: Chronic Plan for intermittent HD today. Of note, however, her RUE AVG has no bruit, and I am concerned that the recent several days of hypotension may have induced a clot. I'll ask IR to assess for thrombectomy and/or shuntogram. She may use the RIJ temporary HD catheter today for IHD. Next HD is tentatively planned for Sunday. Will make her NPO tonight for tomorrow; I called/consulted IR and asked for their assistance for tomorrow. (2) Hypotension Current Visit: Yes Status: Acute Trending better. Qualifiers: Hypotension type: unspecified hypotension type Qualified Code(s): I95.9 - Hypotension, unspecified (3) Lower gastrointestinal bleed Current Visit: Yes Status: Acute As per primary (4) Anemia in CKD (chronic kidney disease) Current Visit: No Status: Acute Goal Hgb 10-11. Will monitor. Agree with EPO Qualifiers: Chronic kidney disease stage: stage 4 (severe) Qualified Code(s): N18.4 - Chronic kidney disease, stage 4 (severe); D63.1 - Anemia in chronic kidney disease (5) Hyperkalemia Current Visit: No Status: Resolved See above. Resolved. (6) Hypervolemia Current Visit: No Status: Acute See above. Resolved Qualifiers: Hypervolemia type: other Qualified Code(s): E87.79 - Other fluid overload (7) Uremia Current Visit: No Status: Acute Resolved. Subjective Principal diagnosis: GI Bleed Interval history: Pt was s/e earlier today. She did not affirm N/V but did report feeling very short of breath, tired and new onset twitching. She has not had any dialysis in several days. She was seen in the ICU due to severely low BPs. Objective - Vital Signs Vital signs: Vital Signs Temp Pulse Resp BP Pulse Ox 03/05/17 11:30 145/71 03/05/17 11:15 123/75 03/05/17 11:00 138/81 03/05/17 10:45 149/75 03/05/17 10:30 132/101 03/05/17 10:15 139/64 03/05/17 10:00 71 22 148/68 95 08/21/17 09:45 146/79 03/05/17 09:30 98.2 F 20 147/73 03/05/17 09:00 86 20 130/68 97 03/05/17 08:00 82 24 149/65 95 03/05/17 07:42 22 96 03/05/17 07:34 97.4 F L 03/05/17 07:00 84 22 141/71 90 03/05/17 06:00 95 24 130/74 90 03/05/17 05:00 84 14 131/85 91 03/05/17 04:31 97.9 F 03/05/17 04:00 76 16 139/81 92 03/05/17 03:00 77 18 143/80 91 03/05/17 02:00 94 26 135/69 92 03/05/17 01:30 85 18 122/85 94 03/05/17 00:10 98.2 F 03/05/17 00:00 105 24 124/53 90 03/04/17 23:30 83 22 124/75 92 03/04/17 22:00 85 16 131/68 94 03/04/17 21:30 22 93 03/04/17 21:03 92 18 141/75 94 03/04/17 20:11 97 26 151/75 97 03/04/17 19:30 97.4 F L 87 24 112/60 95 03/04/17 18:00 84 18 134/93 99 03/04/17 17:00 80 20 99/79 100 03/04/17 16:00 87 18 119/72 100 03/04/17 15:00 79 18 129/97 100 03/04/17 14:00 81 20 128/100 100 03/04/17 13:00 87 20 120/67 94 03/04/17 12:00 89 18 104/78 100 Intake and Output 03/04/17 03/05/17 03/05/17 23:59 07:59 15:59 Intake Total 470 / 470 119 / 119 660 / 660 Output Total 522 / 522 0 / 0 Balance -52 / -52 119 / 119 660 / 660 Intake: IV Fluids 0 / 0 104 / 104 Calcium Chloride 4,000 MG 0 / 0 In 0.9 % Sodium Chloride 1,000 ML @ 40 mls/hr CRRT CONT LINDA Rx#: [id number] Magnesium Sulfate 2 GM In 104 / 104 Dextrose 5% 100 ML @ 50 mls/hr IVPB Q6H PRN Rx#: [id number] Oral 470 / 470 15 / 15 60 / 60 Intake, Rinseback and 600 / 600 Flushes Output: Urine 0 / 0 0 / 0 Heavenly 522 / 522 Other: Meal Breakfast Percent of Meal Consumed 10% Stool Size Small Small Stool Characteristics Mucoid Mucoid Stool Color Brown Brown Blood Tinged Weight 114.351 kg Blood Glucose* 157 104 Hemodialysis Net Fluid 733 Removed (mL) Patient Weight 03/05/17 23:59 Weight 114.351 kg - General Appearance Exam: General appearance: Present: well-developed, well-nourished, appears started age , fatigue, frail EENT: Present: ATNC, PERRL, mucous membranes moist Neck: Present: supple Respiratory: Present: course breath sounds Cardiology: Present: edema, normal S1, normal S2 Dialysis Vascular Access: Venous Catheter ([facility] HD catheter was C/D/I) Gastrointestinal: Present: normoactive bowel sounds, no tenderness Integumentary: Present: no rash, warm and dry Neurologic: Present: no focal deficit, no asterixis, alert and oriented x3 Musculoskeletal: Present: no deformities, no erythema, no cyanosis Psychiatric: Present: mood/affect appropriate, cooperative - Lab 03/07/17 03:34 03/07/17 03:34 Most recent lab results Calcium 11.3 mg/dL (8.6-10.8) H D 03/05/17 04:34 Phosphorus 4.3 mg/dL (2.3-4.7) D 03/05/17 04:34 Magnesium 2.6 mg/dL (1.6-2.6) 03/05/17 04:34 - VTE Documentation of Mechanical Device: Intermittent pneumatic compression device Consult Discharge Plan - Plan Referrals: Brandie Lion MD [Primary Care Provider] -
[2017-03-05] MEDS ORDERED: 0.9 % Sodium Chloride 2,000 ML ONE (13:05)
[2017-03-05] MEDS ORDERED: Saliva Stimulant 100ml BOTTLE PO PRN (13:51)
[2017-03-05] MEDS ORDERED: Albuterol 2.5 MG/3 ML NEBULIZER IH PRN (13:51)
[2017-03-05] MEDS ORDERED: Naloxone 0.4 MG/ML INJ IVP PRN (13:51)
[2017-03-05] MEDS ORDERED: *HR* OxyCODONE/APAP 10/325 TABLET PO PRN (13:51)
--- NOTE | 2017-03-05 15:38 | Event Note ---
Date of Encounter: 03/05/17 Time of Encounter: 15:37 Patient had large bloody bowel movement this afternoon. Patient will be kept in the ICU. Gastroenterology has been informed that there is bright red blood in the stool and they said that they will come see the patient. We have ordered a stat CBC to evaluate the patient's hemoglobin.
[2017-03-05 15:57] LABS: Hematocrit 30.4 % (35.3-44.9); Hemoglobin 9.1 g/dL (11.5-15.4); Immature Platelets 5.9 % (1.1-6.1); Mean Corpuscular HGB Conc 29.9 g/dL (31.6-35.5); Mean Corpuscular Hemoglobin 28.8 pg (28.0-33.3); Mean Corpuscular Volume 96.2 fL (83.0-100.0); Mean Platelet Volume 9.4 fL (9.4-12.4); Nucleated Red Blood Cells 0.8 /100 WBC (0); Platelet Count 184 K/mcL (140-400); Red Blood Count 3.16 M/mcL (3.82-4.97); Red Cell Distribution Width 20.5 % (11.5-14.5)
[2017-03-05 16:27] LABS: Lymphocytes # 2.1 K/mcL (0.6-4.6); Monocytes # 1.1 K/mcL (0.0-1.3)
[2017-03-05 16:28] LABS: Anisocytosis 2+ (Not Present); Basophilic Stippling 1+ (Not Present)
[2017-03-05 16:29] LABS: Platelet Estimate Normal (Normal); Polychromasia 1+ (Not Present)
--- NOTE | 2017-03-05 18:28 | Event Note ---
Date of Encounter: 03/05/17 Time of Encounter: 18:00 Patient noticed to have some pinkish blood in her stool. Rectal examination done there is some pinkish fluid around her rectal area .rectal examination also some pinkish fluid on the examining finger but no bright red blood. Hemoglobin this morning was 8.4 now 9.1. Last colonoscopy was in 2012. We will just watch the patient HB for now once her mental status has improved then she will be prepped forcolon : As doubt that she will be able to be prepped at this point
[2017-03-05 23:20] LABS: Hematocrit 29.9 % (35.3-44.9); Hemoglobin 8.7 g/dL (11.5-15.4)
[2017-03-06 04:01] LABS: Eosinophils # 0.2 K/mcL (0.0-0.6); Hematocrit 30.3 % (35.3-44.9); Hemoglobin 8.9 g/dL (11.5-15.4); Mean Corpuscular HGB Conc 29.4 g/dL (31.6-35.5); Mean Corpuscular Hemoglobin 28.3 pg (28.0-33.3); Mean Corpuscular Volume 96.2 fL (83.0-100.0); Mean Platelet Volume 9.9 fL (9.4-12.4); Nucleated Red Blood Cells 0.6 /100 WBC (0); Platelet Count 157 K/mcL (140-400); Red Blood Count 3.15 M/mcL (3.82-4.97); Red Cell Distribution Width 20.5 % (11.5-14.5)
[2017-03-06 04:05] LABS: Ionized Calcium 1.33 mmol/L (1.15-1.35)
[2017-03-06 04:06] LABS: INR 1.4; Prothrombin Time 14.8 Seconds (9.4-12.1)
[2017-03-06 04:08] LABS: Activated Partial Thrombo Time 27.7 Seconds (26.0-36.0)
[2017-03-06 04:11] LABS: Phosphorous 2.3 mg/dL (2.3-4.7)
[2017-03-06 04:12] LABS: Albumin 2.3 g/dL (3.5-5.0); Albumin/Globulin Ratio 0.7 (1.1-2.2); Bilirubin,Total 0.6 mg/dL (0.2-1.2); Calcium 9.9 mg/dL (8.6-10.8); Globulin 3.2 g/dL (2.4-3.5); Potassium 3.9 mEq/L (3.5-4.5); Total Protein 5.5 g/dL (6.0-8.3)
[2017-03-06 04:20] LABS: Basophils # 0.2 K/mcL (0.0-0.2); Monocytes # 0.9 K/mcL (0.0-1.3); Neutrophils # 7.2 K/mcL (1.6-8.9); Platelet Estimate Normal (Normal); Polychromasia 1+ (Not Present)
[2017-03-06 04:21] LABS: Anisocytosis 1+ (Not Present); Basophilic Stippling 1+ (Not Present); Large Platelets Present (Not Present); Reactive Lymphocytes Present (Not Present); Toxic Granulation Present (Not Present)
[2017-03-06] MEDS: *HR* Metoprolol 5 MG/5 ML VIAL IVP SCH ×3 (05:19→17:04)
[2017-03-06] MEDS: Pantoprazole 40 MG VIAL IVP SCH ×2 (05:19→18:18)
--- NOTE | 2017-03-06 07:57 | Pulmonology Progress Note ---
<KathyVikram W - Last Filed: 03/06/17 11:07> Date of Encounter: 03/06/17 Objective PUL Vital signs: Last Vital Signs Temp 98.0 F 03/06/17 07:26 Pulse 66 03/06/17 09:00 Resp 16 03/06/17 09:00 BP 129/58 03/06/17 09:00 Pulse Ox 94 03/06/17 09:00 Results - Laboratory Findings CBC and BMP: 03/06/17 03:49 03/06/17 03:49 PT/INR, D-dimer PT 14.8 Seconds (9.4-12.1) H 03/06/17 03:49 Abnormal lab findings: Abnormal lab results RBC 3.15 M/mcL (3.82-4.97) L 03/06/17 03:49 Hgb 8.9 g/dL (11.5-15.4) L 03/06/17 03:49 Hct 30.3 % (35.3-44.9) L 03/06/17 03:49 MCHC 29.4 g/dL (31.6-35.5) L 03/06/17 03:49 RDW 20.5 % (11.5-14.5) H 03/06/17 03:49 Immature Gran % 6.1 % (0-4) H 03/05/17 04:34 Metamyelocytes % 2.0 % (0) H 03/05/17 15:48 Myelocytes % 4.0 % (0) H 03/06/17 03:49 Nucleated RBCs/100 WBC 0.6 /100 WBC (0) H 03/06/17 03:49 Reactive Lymphocytes Present (Not Present) A 03/06/17 03:49 Toxic Granulation Present (Not Present) A 03/06/17 03:49 Large Platelets Present (Not Present) A 03/06/17 03:49 Polychromasia 1+ (Not Present) A 03/06/17 03:49 Hypochromasia Present (Not Present) A 02/28/17 00:45 Basophilic Stippling 1+ (Not Present) A 03/06/17 03:49 Anisocytosis 1+ (Not Present) A 03/06/17 03:49 Microcytosis Present (Not Present) A 02/28/17 00:45 PT 14.8 Seconds (9.4-12.1) H 03/06/17 03:49 Carbon Dioxide 32 mEq/L (19-29) H 03/06/17 03:49 Creatinine 1.79 mg/dL (0.57-1.11) H 03/06/17 03:49 Est GFR ( Amer) 34 (> 60) L 03/06/17 03:49 Est GFR (Non-Af Amer) 28 (> 60) L 03/06/17 03:49 BUN/Creatinine Ratio 5 (6-26) L 03/06/17 03:49 Iron 24 mcg/dL (50-170) L 03/01/17 11:25 Transferrin 116 mg/dL (180-382) L 03/01/17 11:25 Ferritin 9740 ng/ml (5-204) H 03/01/17 11:25 Serum Total Protein 5.5 g/dL (6.0-8.3) L 03/06/17 03:49 Albumin 2.3 g/dL (3.5-5.0) L 03/06/17 03:49 Albumin/Globulin Ratio 0.7 (1.1-2.2) L 03/06/17 03:49 Triglycerides 193 mg/dL (< 150) H 02/28/17 00:45 VLDL Cholesterol, Calc 39 mg/dL (< 31) H 02/28/17 00:45 HDL Cholesterol 21 mg/dL (40-59) L 02/28/17 00:45 Stool Occult Blood Positive (Negative) A 02/28/17 01:50 - Microbiology Findings Microbiology Findings: Microbiology, Last 48 Hours 02/28/17 07:01 Blood Culture - Final Peripheral Venipuncture No growth. 02/28/17 07:01 Blood Culture - Final Peripheral Venipuncture No growth. - Clinical Findings Intake & Output: Intake & Output 03/05/17 03/06/17 03/06/17 23:59 07:59 15:59 Intake Total 60 / 60 0 / 0 Balance 60 / 60 0 / 0 Consult Discharge Plan - Plan Referrals: Brandie Lion MD [Primary Care Provider] - - Attending Attestation I examined this patient and my medical decision-making was reviewed with the Resident Physician. I agree with the documented findings, disposition and treatment plan as described except to the extent set forth below. We independently had [id number] contact with the patient Patient seen and examined at bedside Labs, radiology, chart personally reviewed. Management was reviewed during multidisciplinary critical care rounds. Neuropsych: Delirium has resolved. Cont to avoid [employer] depressants and reestablishment of sleep wake cycle Pulm: Acceptable o2 on nasal cannula O2 OOBTC and Incentive Spirometry. Wean Fio2 to keep sats >89% Cards: Hemodynamically stable. History of afib rate controlled on BB. No LTA for concern of GI bleed. FEN-GI:Blood tinged BM overnight which was red likely lower Gi source GI has seen patient. . Cont to Monitor whe has been seen by GI. Cont PPI. NPO for now . Renal: Intermittent HD today pressures tolerating. Neprho following. Concern for possible vascular hematoma at fistula site we are sending patient for angiogram and evaluation by vascular surgery ID: No obvious infection cont to monitor. Heme/Onc:stable anemia. plts stable.. Cont Mechanical DVT prophylaxis with SCDs. Endo: Glucose Monitored. Integ/MSK: PT/OT consult Lines: All lines examined without evidence of infection including: Rigth Temp CVC dialysis catheter. Dispo: Stable for Transfer to Med/tele for ongoing care. CODE:Full <JuanjoJose - Last Filed: 03/06/17 18:12> Date of Encounter: 03/06/17 Time of Encounter: 07:57 Assessment and Plan (1) Upper GI bleed Current Visit: Yes Status: Acute Patient has been having hematochezia and melena prior to admission. She normally stays at a care facility and was brought [facility] and was then transferred to [facility] for further evaluation. Patient is received 4 units of blood during her course of stay in the hospital. Her current hemoglobin is 8.9. We will continue to monitor this patient's hemoglobin. Patient had a bloody bowel movement yesterday. GI was informed of this. They came and saw the patient and stated that he continue to monitor the patient's hemoglobin and possibly do a colonoscopy later.. Patient is currently NPO due to having procedures today to evaluate her fistula. This patient appears to be stable at this time and can be transferred to telemetry bed and renal unit. (2) Anemia Current Visit: No Status: Chronic Patient is currently anemic. Her hemoglobin is currently 8.9. This is likely due to a GI bleed and chronic kidney disease. Gastroenterology has been consult on this patient. The patient has received 4 units of blood over the course of her hospital stay. Her current hemoglobin is 8.9. It is not uncommon for the patient to have a hemoglobin in the 8-9 range. Patient had a bloody bowel movement yesterday. We will continue to follow this patient's hemoglobin. GI was informed of this and they have evaluated the patient. GI said that we will continue to monitor the patient hemoglobin and the possible colonoscopy at a later date. GI did an EGD last week and found a couple of telangiectasias for which they cauterized. Iron supplementation has been ordered for the patient (3) Hypotension Current Visit: Yes Status: Acute Patient had hypotension but her current blood pressure is in the 140s over 60s. We will continue to monitor the patient's blood pressure. Qualifiers: Hypotension type: unspecified hypotension type Qualified Code(s): I95.9 - Hypotension, unspecified (4) ESRD (end stage renal disease) on dialysis Current Visit: Yes Status: Chronic Patient has a history of end-stage renal disease requiring dialysis. Patient does not make any urine. Nephrology has been consult and is seeing the patient. Patient had HD yesterday. Nephrology and mentioned that the patient' s fistula no longer has a thrill that he will be contacting interventional radiology to evaluate this. (5) Pseudoaneurysm of brachial artery Current Visit: Yes Status: Acute Patient had a pulsatile mass on her left arm near her old AV fistula. This old AV fistula has been clotted off and was no longer in use. Imaging of the left upper extremity had a prelim reading: Appears to be positive for a pseudoaneurysm coming off of the left brachial artery before the bifurcation. Also able to visualize old clotted graft. Vascular surgery has been consult at for this. (6) Chronic a-fib Current Visit: No Status: Chronic Patient has a history of chronic atrial fibrillation. Patient's heart rate was somewhat irregular this morning with a rate in the 70s. We will continue to use lopressor for rate control. We did not start her on amiodarone for concern of worsening of hypotension and the possibility of chemical cardioversion which could lead to ischemic stroke. (7) DVT prophylaxis Current Visit: No Status: Acute Due to the patient's possible GI bleed and anemia we will not start any blood thinners for DVT prophylaxis at this time. SCDs have been ordered for this patient for DVT prophylaxis. Subjective Principal diagnosis: GI Bleed Interval history: Patient states that she is doing well today. Patient did well overnight. She states that she is having mild abdominal pain. Nursing states that she did well overnight and is no longer requiring pain medications. The nurse noticed today that there was a pulsatile mass on the left arm where the patient had a previous AV shunt. Vascular surgery has been consulted for this. Objective PUL Vital signs: Last Vital Signs Temp 98.0 F 03/06/17 07:26 Pulse 77 03/06/17 06:00 Resp 18 03/06/17 06:00 BP 146/63 03/06/17 06:00 Pulse Ox 95 03/06/17 06:00 General appearance: no acute distress Eyes: nonicteric ENT: oropharynx moist Neck: supple Effort: normal Auscultation: left: clear, right: wheezes Cardiovascular: irregular rhythm (With a normal rate) Gastrointestinal: normoactive bowel sounds, tender (Mild diffuse tenderness) Integumentary: other (Ecchymosis on the bilateral upper extremity. There is also a pulsatile mass on the left arm.) Extremities: no cyanosis, no edema, other (Pulsatile mass and left arm around previous AV shunt.) Musculoskeletal: no deformities normal mental status, non-focal exam mood appropriate, affect normal Results - Laboratory Findings CBC and BMP: 03/06/17 03:49 03/06/17 03:49 PT/INR, D-dimer PT 14.8 Seconds (9.4-12.1) H 03/06/17 03:49 Abnormal lab findings: Abnormal lab results RBC 3.15 M/mcL (3.82-4.97) L 03/06/17 03:49 Hgb 8.9 g/dL (11.5-15.4) L 03/06/17 03:49 Hct 30.3 % (35.3-44.9) L 03/06/17 03:49 MCHC 29.4 g/dL (31.6-35.5) L 03/06/17 03:49 RDW 20.5 % (11.5-14.5) H 03/06/17 03:49 Immature Gran % 6.1 % (0-4) H 03/05/17 04:34 Metamyelocytes % 2.0 % (0) H 03/05/17 15:48 Myelocytes % 4.0 % (0) H 03/06/17 03:49 Nucleated RBCs/100 WBC 0.6 /100 WBC (0) H 03/06/17 03:49 Reactive Lymphocytes Present (Not Present) A 03/06/17 03:49 Toxic Granulation Present (Not Present) A 03/06/17 03:49 Large Platelets Present (Not Present) A 03/06/17 03:49 Polychromasia 1+ (Not Present) A 03/06/17 03:49 Hypochromasia Present (Not Present) A 02/28/17 00:45 Basophilic Stippling 1+ (Not Present) A 03/06/17 03:49 Anisocytosis 1+ (Not Present) A 03/06/17 03:49 Microcytosis Present (Not Present) A 02/28/17 00:45 PT 14.8 Seconds (9.4-12.1) H 03/06/17 03:49 Carbon Dioxide 32 mEq/L (19-29) H 03/06/17 03:49 Creatinine 1.79 mg/dL (0.57-1.11) H 03/06/17 03:49 Est GFR ( Amer) 34 (> 60) L 03/06/17 03:49 Est GFR (Non-Af Amer) 28 (> 60) L 03/06/17 03:49 BUN/Creatinine Ratio 5 (6-26) L 03/06/17 03:49 Iron 24 mcg/dL (50-170) L 03/01/17 11:25 Transferrin 116 mg/dL (180-382) L 03/01/17 11:25 Ferritin 9740 ng/ml (5-204) H 03/01/17 11:25 Serum Total Protein 5.5 g/dL (6.0-8.3) L 03/06/17 03:49 Albumin 2.3 g/dL (3.5-5.0) L 03/06/17 03:49 Albumin/Globulin Ratio 0.7 (1.1-2.2) L 03/06/17 03:49 Triglycerides 193 mg/dL (< 150) H 02/28/17 00:45 VLDL Cholesterol, Calc 39 mg/dL (< 31) H 02/28/17 00:45 HDL Cholesterol 21 mg/dL (40-59) L 02/28/17 00:45 Stool Occult Blood Positive (Negative) A 02/28/17 01:50 - Microbiology Findings Microbiology Findings: Microbiology, Last 48 Hours 02/28/17 07:01 Blood Culture - Final Peripheral Venipuncture No growth. 02/28/17 07:01 Blood Culture - Final Peripheral Venipuncture No growth. - Clinical Findings Intake & Output: Intake & Output 03/05/17 03/05/17 03/06/17 15:59 23:59 07:59 Intake Total 660 / 660 60 / 60 0 / 0 Output Total 1100 / 1100 Balance -440 / -440 60 / 60 0 / 0 - VTE Documentation of Mechanical Device: Intermittent pneumatic compression device
[2017-03-06] MEDS: Budesonide/Formoterol 160/4.5 MDI IH SCH ×2 (07:59→20:10)
[2017-03-06] MEDS: Gabapentin 100 MG CAPSULE PO SCH ×2 (08:42→20:28)
[2017-03-06] MEDS: Ascorbic Acid 500 MG TABLET PO SCH (08:42)
[2017-03-06] MEDS: Anastrozole 1 MG TABLET PO SCH (08:43)
[2017-03-06] MEDS: Docusate Oral Soln 100 MG/10 ML UDC PO SCH (08:43)
[2017-03-06] MEDS: Calcium Acetate 667 MG CAPSULE PO SCH ×3 (08:43→17:03)
[2017-03-06] MEDS ORDERED: Dextrose Gel 15 GM PO PRN ×2 (08:59)
[2017-03-06] MEDS ORDERED: D5% in Water 1,000 ML IVC PRN (08:59)
[2017-03-06] MEDS ORDERED: *HR* Dextrose 50 % in Water (Syg) 50 ML SYRINGE IVP PRN (08:59)
[2017-03-06] MEDS ORDERED: *HR* Amiodarone 200 MG TABLET PO SCH (09:00)
[2017-03-06] MEDS ORDERED: *HR* Dextrose 50 % in Water (Syg) 50 ML SYRINGE ONE (09:02)
--- NOTE | 2017-03-06 09:22 | Nephrology Progress Note ---
Date of Encounter: 03/06/17 Time of Encounter: 08:50 - Assessment and Plan (1) ESRD (end stage renal disease) on dialysis Current Visit: Yes Status: Chronic Planning for fistulagram. Need to fix her RUE AV access before discharge. She currently only has a RIJ temporary HD catheter. Next HD planned for tomorrow. (2) Hypotension Current Visit: Yes Status: Acute Improved. Qualifiers: Hypotension type: unspecified hypotension type Qualified Code(s): I95.9 - Hypotension, unspecified (3) Lower gastrointestinal bleed Current Visit: Yes Status: Acute As per primary (4) Anemia in CKD (chronic kidney disease) Current Visit: No Status: Acute Goal Hgb 10-11. Will monitor. Cont EPO with iHD. Qualifiers: Chronic kidney disease stage: stage 4 (severe) Qualified Code(s): N18.4 - Chronic kidney disease, stage 4 (severe); D63.1 - Anemia in chronic kidney disease (5) Hyperkalemia Current Visit: No Status: Resolved Resolved. (6) Hypervolemia Current Visit: No Status: Acute See above. Resolved. Qualifiers: Hypervolemia type: other Qualified Code(s): E87.79 - Other fluid overload (7) Complications, dialysis, catheter, mechanical Current Visit: Yes Status: Acute Two complications: 1) RUE AVG with lost bruit: needs fistulagram 2) today on exam, she has a new, enlarging and pulsating mass near the base/ anastomosis of an old left Forearm AV graft. The pt said Dr. Gallardo had previously, years ago, placed the AVG. I've paged him today, and recommend checking a stat doppler for assessment. This should be monitored closely for size or bleeding. Qualifiers: Encounter type: initial encounter Qualified Code(s): T82.49XA - Other complication of vascular dialysis catheter, initial encounter Subjective Principal diagnosis: GI Bleed Interval history: Pt was s/e earlier today. She did not affirm N/V/D or uremic symptoms. Objective - Vital Signs Vital signs: Vital Signs Temp Pulse Resp BP Pulse Ox 03/06/17 09:00 66 16 129/58 94 03/06/17 08:02 16 92 03/06/17 07:26 98.0 F 03/06/17 06:00 77 18 146/63 95 03/06/17 04:25 97.5 F L 03/06/17 04:00 81 22 118/75 100 03/06/17 02:00 79 24 128/71 93 03/06/17 00:00 97.7 F 68 24 120/72 94 03/05/17 22:00 80 22 165/91 97 03/05/17 20:30 97.5 F L 03/05/17 20:00 84 22 97 03/05/17 19:46 20 94 03/05/17 19:00 84 18 138/77 97 03/05/17 17:04 97.1 F L 03/05/17 17:00 74 18 150/86 92 03/05/17 15:00 82 20 141/74 97 03/05/17 13:00 73 22 139/64 95 03/05/17 12:35 98.2 F 19 133/95 03/05/17 12:30 115/85 03/05/17 12:15 122/75 03/05/17 12:00 85 20 140/81 91 03/05/17 11:47 98.2 F 03/05/17 11:45 109/66 03/05/17 11:30 145/71 03/05/17 11:15 123/75 03/05/17 11:00 138/81 03/05/17 10:45 149/75 03/05/17 10:30 132/101 03/05/17 10:15 139/64 03/05/17 10:00 71 22 148/68 95 03/05/17 09:45 146/79 03/05/17 09:30 98.2 F 20 147/73 Intake and Output 03/05/17 03/06/17 03/06/17 23:59 07:59 15:59 Intake Total 60 / 60 0 / 0 Balance 60 / 60 0 / 0 Intake: Oral 60 / 60 0 / 0 Other: Stool Size Small Small Small Stool Consistency loose loose loose Stool Characteristics Mucoid Mucoid Mucoid Stool Color Blood Tinged Blood Tinged Blood Tinged # Bowel Movements 1 Blood Glucose* 72 63 - General Appearance Exam: General appearance: Present: well-developed, well-nourished, appears started age , fatigue, frail EENT: Present: ATNC, PERRL, mucous membranes moist Neck: Present: supple Respiratory: Present: course breath sounds Cardiology: Present: edema, normal S1, normal S2 Dialysis Vascular Access: Venous Catheter ([facility] HD catheter was C/D/I) Gastrointestinal: Present: normoactive bowel sounds, no tenderness Integumentary: Present: no rash, warm and dry Neurologic: Present: no focal deficit, no asterixis, alert and oriented x3 Musculoskeletal: Present: no deformities, no erythema, no cyanosis Psychiatric: Present: mood/affect appropriate, cooperative - Lab 03/07/17 03:34 03/07/17 03:34 Most recent lab results Calcium 9.9 mg/dL (8.6-10.8) 03/06/17 03:49 Phosphorus 2.3 mg/dL (2.3-4.7) 03/06/17 03:49 Magnesium 2.0 mg/dL (1.6-2.6) 03/06/17 03:49 - VTE Documentation of Mechanical Device: Intermittent pneumatic compression device Consult Discharge Plan - Plan Referrals: Brandie Lion MD [Primary Care Provider] -
[2017-03-06] MEDS ORDERED: 0.9 % Sodium Chloride 500 ML ONE (11:45)
[2017-03-06] MEDS ORDERED: Heparin 1,000 UNITS/500 mL NS 500 ML ONE (11:45)
[2017-03-06] MEDS ORDERED: *HR* Alteplase (Cathflo) 2 MG VIAL IVP ONE (13:57)
[2017-03-06] MEDS ORDERED: *HR* Heparin 5,000 UNIT/ML VIAL ONE (14:22)
--- NOTE | 2017-03-06 17:50 | Vascular/Endovasc Consult Note ---
Date of Encounter: 03/06/17 Time of Encounter: 17:45 Assessment and Plan (1) ESRD (end stage renal disease) on dialysis Current Visit: Yes Status: Chronic The patient has long-term kidney failure requiring dialysis. She has had multiple interventions for the dialysis access. She presently has a temporary right sided internal jugular vein dialysis catheter. She has had some type of intervention of the right upper extremity vascular access by interventional radiology earlier today. (2) Atrial fibrillation Current Visit: Yes Status: Chronic Patient is under medical treatment for atrial fibrillation Qualifiers: Atrial fibrillation type: paroxysmal Qualified Code(s): I48.0 - Paroxysmal atrial fibrillation (3) Melena Current Visit: Yes Status: Acute Patient is under treatment for GI bleeding (4) Pseudoaneurysm of brachial artery Current Visit: Yes Status: Acute Patient has an expanding painful mass that is pulsatile at the left proximal forearm. She has had previous vascular access surgery at this area though the exact time and place and circumstances of that operation are not known at the time of this dictation. I had requested a duplex scan be performed of this area. The report is presently not available. I will research into this further. In light of the patient's multiple medical problems I would suggest that this area be surgically addressed during this hospitalization. I would tentatively suggest that this be performed on with an exploration and resection of this pseudoaneurysm. I explained this to the patient. All questions were answered. The patient is agreeable to proceed. I will at my office to make arrangements for this tentatively for this upcoming . - History of Present Illness Consult date: 03/06/17 Requesting physician: Jason Hester Consult reason: Left upper extremity swelling Chief complaint: Left upper extremity swelling and pain History of present illness: Ms. Murphy is a 72 year old female With a very complicated history. The patient was admitted a number of days ago and was found to have GI bleeding. She also has difficulties with maintaining a vascular access. She had undergone some type of interventional radiology procedure for the right upper extremity. The full extent of that intervention is unknown at the time of this dictation. Unfortunately the patient herself is a very poor historian. I had seen the patient as an emergency in July 2011. She had presented to the emergency room after someone had performed some type of interventional procedure and had embolized the right upper extremity. She needed to be taken to the operating room for an emergency arterial embolectomy and thrombectomy of the right upper extremity AV shunt. The patient was recommended to undergo further treatment but it is unclear whether that was ever performed. I have no record of any recent vascular access intervention by myself. What I can glean at this time is the patient has been having swelling and pain of the left proximal forearm area over the past number of weeks. The patient states that this area is been slowly getting larger and increasing in pain. She denies any fevers or drainage or bleeding from this site. She denies any issues with the left upper extremity itself but is more localized to this area of swelling on the ventral surface near the antecubital region. Of note the patient has had multiple previous vascular access procedures and operations with shunts in the forearm and upper arm bilaterally area the patient has had numerous interventional procedures by interventional radiology and is also had surgery performed at [facility]. The last contact I can identify of the patient with my clinic is in the spring when she had canceled a recommended redo left upper arm AV shunt creation. Past Med Surg Social Fam HX - Past Medical History Medical history: arthritis, atrial fibrillation, cancer, CHF, COPD, DVT, GERD, GI bleed, hyperlipidemia, hypertension, malignancy, osteoporosis, renal disease Psychiatric history: no psych history - Past Surgical History Surgical History: breast surgery, pacemaker/AICD, other, vascular surgery (The patient is status post bilateral forearm and upper arm AV shunt creations. In addition the patient is status post previous interventional procedures on the AV shunts.) - Social History Smoking Status: Former smoker Smokeless Tobacco Status: No Alcohol use: rarely Drug use: none - Family History Mother Living Status: Age at : 82 Cause of : diabetes Hx Family Cardiac Disorders: Yes Hx Family Respiratory Disorders: No Hx Family Cancer: Yes Hx Family GI Disorders: No Hx Family Genitourinary Disorders: No Hx Family Endocrine Disorder: No Hx Family Musculoskeletal Disorders: No Hx Family Neuromuscular Disorders: No Hx Family Neurologic Disorders: No Hx Family HEENT Disorders: No Hx Family Autoimmune Disorders: No Hx Family Reproductive Disorders: No Hx Family Psychosocial Disorders: Yes Hx Family Medical Disorders: No Medications and Allergies Anastrozole [Arimidex] 1 mg PO DAILY 04/05/15 [History] Aspirin Enteric Coated [Aspirin EC] 325 mg PO DAILY 04/05/15 [History] Atorvastatin [Lipitor] 10 mg PO HS 04/05/15 [History] Calcium Acetate [Phos-LO] 2,001 mg PO TIDWM 04/05/15 [History] Cinacalcet [Sensipar] 30 mg PO DAILY 04/05/15 [History] Escitalopram [Lexapro] 10 mg PO DAILY 04/05/15 [History] Fluticasone/Salmeterol [Advair 500-50 Diskus] 1 each IH BID 04/05/15 [History] Gabapentin [Neurontin] 100 mg PO BID 04/05/15 [History] Ipratropium/Albuterol Sulfate [Combivent Respimat Inhal [place]] 1 puff IH DAILY 04/05/15 [History] Vitamin B Complex [B Complex] 1 each PO DAILY 04/05/15 [History] Sevelamer [Renvela] 800 mg PO TIDWM 09/14/15 [History] Diltiazem CD (24hr) [Cardizem CD] 120 mg PO DAILY cap.er.24h 03/01/16 [Rx] Metoprolol [Lopressor] 25 mg PO BID tablet 03/01/16 [Rx] Acetaminophen [Tylenol] 650 mg PO Q6H PRN 02/27/17 [History] Amiodarone [Cordarone] 200 mg PO DAILY 02/27/17 [History] Benzonatate [Tessalon] 100 mg PO TID PRN 02/27/17 [History] DiphenhydraMINE [Benadryl] 50 mg PO Q6H PRN 02/27/17 [History] Docusate [Colace] 200 mg PO HS 02/27/17 [History] Ferrous Sulfate 325 mg PO DAILY 02/27/17 [History] GuaiFENesin/Dextromethorphan [Tussin Dm Syrup] 5 ml PO Q4H PRN 02/27/17 [History ] Guaifenesin [Mucinex] 1,200 mg PO Q12H PRN 02/27/17 [History] Ipratropium/Albuterol Neb [Duoneb] 3 ml IH Q6HR 02/27/17 [History] Lidocaine/Prilocaine CREAM [Emla] 1 appl TP ONCE PRN 02/27/17 [History] Loratadine [Claritin] 10 mg PO DAILY 02/27/17 [History] Magnesium Hydroxide [Milk of Magnesia] 2,400 mg PO DAILY PRN 02/27/17 [History] Midodrine HCl 2.5 mg PO BID 02/27/17 [History] Nitroglycerin [Nitrostat] 0.4 mg SL Q5M PRN 02/27/17 [History] OxyCODONE Immed Rel [Roxicodone 5 MG] 5 mg PO Q4H PRN 02/27/17 [History] OxyCODONE Immed Rel [Roxicodone 5 MG] 10 mg PO Q4H PRN 02/27/17 [History] Pantoprazole Sodium [Protonix] 40 mg PO BIDWM 02/27/17 [History] Patiromer Calcium Sorbitex [Veltassa] 8.4 gm PO DAILY 02/27/17 [History] Promethazine [Phenergan] 25 mg PO Q6H PRN 02/27/17 [History] Saliva Substitute Combo No.3 [Aquoral] 2 spray MM BID 02/27/17 [History] 3 Allergy/AdvReac Type Severity Reaction Status Date / Time Erythromycin Base AdvReac Mild Abdominal Verified 02/25/16 09:23 Pain Edetate Calcium Disodium AdvReac See Verified 02/27/17 19:22 Comments Nicardipine AdvReac See Verified 02/27/17 19:22 Comments Warfarin [From Coumadin] AdvReac See Verified 02/27/17 19:22 Comments blood thinners AdvReac Mild Nose Bleed Uncoded 04/05/15 12:13 dihydropyridine AdvReac Mild Abdominal Uncoded 04/05/15 12:13 Pain All Systems Review: A 10-system review of systems was performed and is negative for pertinent findings except as documented above in the HPI. Exam Vital Signs, Last 4 Hours Pulse Resp BP Pulse Ox 03/06/17 14:57 72 25 140/67 94 03/06/17 14:49 96 12 190/133 93 03/06/17 14:34 73 13 125/56 98 03/06/17 14:24 104 20 146/111 96 03/06/17 14:13 80 13 160/83 97 Exam: On exam this evening the patient is lying in bed onto a period she is in no obvious distress. She is an obese white female who looks older than her stated age. HEENT exam reveals an obese white female. She has facial symmetry. She has a temporary hemodialysis catheter in the right internal jugular vein. Pulmonary exam reveals diminished breath sounds. Cardiac exam reveals irregularly irregular rhythm. Upper extremity exam reveals a swollen tender area on the proximal aspect of the left forearm. This is been marked by previous healthcare providers. This area measures approximately 4 and half by 4 cm. The area is warm at its center but there is no redness or streaking. There is a bruit heard over this area. I do not palpate pulses at the wrist level on the left. On the right side the arm is chronically swollen. She has distended veins of the upper arm. She has had some type of intervention recently and there is a dressing on the distal aspect of the right upper arm. There is a purplish discoloration of the skin suggesting previous and chronic hemorrhage. Her abdomen is obese and soft. Neurologically she is a right-handed individual. She is awake and alert but she is confused in regards to medical details and sequencing of past medical events. Consult Discharge Plan - Plan Referrals: Brandie Lion MD [Primary Care Provider] -
[2017-03-07] MEDS: *HR* Metoprolol 5 MG/5 ML VIAL IVP SCH ×2 (00:37→07:28)
[2017-03-07 03:44] LABS: Hematocrit 29.6 % (35.3-44.9); Hemoglobin 8.7 g/dL (11.5-15.4); Mean Corpuscular HGB Conc 29.4 g/dL (31.6-35.5); Mean Corpuscular Hemoglobin 28.8 pg (28.0-33.3); Mean Platelet Volume 10.5 fL (9.4-12.4); Nucleated Red Blood Cells 5.3 /100 WBC (0); Platelet Count 140 K/mcL (140-400); Red Blood Count 3.02 M/mcL (3.82-4.97); Red Cell Distribution Width 20.9 % (11.5-14.5)
[2017-03-07 03:56] LABS: Phosphorous 3.2 mg/dL (2.3-4.7)
[2017-03-07 03:58] LABS: Albumin 2.3 g/dL (3.5-5.0); Albumin/Globulin Ratio 0.7 (1.1-2.2); Bilirubin,Total 0.8 mg/dL (0.2-1.2); Calcium 9.7 mg/dL (8.6-10.8); Globulin 3.1 g/dL (2.4-3.5); Potassium 4.8 mEq/L (3.5-4.5); Total Protein 5.4 g/dL (6.0-8.3)
[2017-03-07 04:04] LABS: Prothrombin Time 21.8 Seconds (9.4-12.1)
[2017-03-07 04:07] LABS: Activated Partial Thrombo Time 30.9 Seconds (26.0-36.0)
[2017-03-07 04:22] LABS: Basophils # 0.3 K/mcL (0.0-0.2); Eosinophils # 0.3 K/mcL (0.0-0.6); Lymphocytes # 2.8 K/mcL (0.6-4.6); Monocytes # 1.7 K/mcL (0.0-1.3)
[2017-03-07 04:23] LABS: Anisocytosis 2+ (Not Present)
[2017-03-07 04:24] LABS: Large Platelets Present (Not Present); Platelet Estimate Normal (Normal); Polychromasia 1+ (Not Present); Reactive Lymphocytes Present (Not Present); Toxic Granulation Present (Not Present)
[2017-03-07 04:30] LABS: Ionized Calcium 1.24 mmol/L (1.15-1.35)
[2017-03-07] MEDS: Pantoprazole 40 MG VIAL IVP SCH ×2 (05:58→17:32)
[2017-03-07] MEDS ORDERED: 0.9 % Sodium Chloride 250 ML IVC PRN (08:07)
--- NOTE | 2017-03-07 08:34 | Internal Med Progress Note ---
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 Plan: Continue to monitor Hgb and BMs GI consulted - possible colonoscopy in the future Continue PPI (2) Anemia Current Visit: No Status: Chronic Assessment and plan: Has been stable near 8.7 the past few days 4 U pRBCs since admission Likely secondary chronic disease (Hgb 8-9 is baseline) with acute changes due to GI bleed Plan: Continue to monitor Hgb Transfuse as needed to remain above Hgb 8 Qualifiers: Anemia type: due to chronic kidney disease Chronic kidney disease stage: on chronic dialysis Qualified Code(s): N18.6 - End stage renal disease; D63.1 - Anemia in chronic kidney disease; Z99.2 - Dependence on renal dialysis (3) Hypotension Current Visit: Yes Status: Acute Assessment and plan: Current 90s/60s - continue to monitor Metoprolol held today - HR 88 Qualifiers: Hypotension type: unspecified hypotension type Qualified Code(s): I95.9 - Hypotension, unspecified (4) Pseudoaneurysm of brachial artery Current Visit: Yes Status: Acute Assessment and plan: Painful mass of left arm - no erythema or warmth Venous study: Pseudoaneurysm in the proximal portion of the patient's shunt containing recalcitrant thrombus despite passage of a balloon through this region multiple times. Surgical revision is recommended. Plan: Vascular surgery consulted - tentative plan is surgery on (5) ESRD (end stage renal disease) on dialysis Current Visit: Yes Status: Chronic Assessment and plan: RUE AV access obtained Remove right IJ line Plan: Nephrology consulted - plan for HD today Continue to monitor (6) Chronic a-fib Current Visit: No Status: Chronic Assessment and plan: Currently HR 88, irregular rhythm Metoprolol on hold due to low BP (90s/60s) Continue to monitor - restart Metoprolol when BP is normalized (7) DVT prophylaxis Current Visit: No Status: Acute Assessment and plan: SCDs No anticoagulation due to GI bleed and anemia - Subjective Interval history: Patient seen and examined. Asleep but easily arousable. She is doing well, but reports feeling very tired. Denies other complaints, denies chest pain, dyspnea , N/V/D, melena, hematochezia, or leg pain/swelling. Nurse reported mucoid blood tinged stool yesterday afternoon. She is awaiting dialysis and vascular surgery tentatively planned for . - Constitutional Vitals: Temp Pulse Resp BP Pulse Ox 98.9 F 88 20 98/67 100 03/07/17 06:55 03/07/17 06:55 03/07/17 06:55 03/07/17 06:55 03/07/17 06:55 General appearance: Present: A&O X 3, no acute distress, answers questions appropriately - Head Head exam: Present: atraumatic, normocephalic - Eye Eye exam: Present: conjuntiva pink, sclera anicteric - ENT ENT exam: Present: mucous membranes dry - Neck Additional comments: Temporary hemodialysis catheter in Right IJ - no erythema or warmth around the area - Respiratory Respiratory exam: Present: decreased breath sounds. Absent: rales, rhonchi, wheezes - Cardiovascular Cardiovascular exam: Present: irregular rhythm, +S1, +S2. Absent: diastolic murmur, systolic murmur - GI/Abdominal GI/Abdominal exam: Present: normal bowel sounds, soft. Absent: distended, rigid , tenderness - Extremities Exam Extremities exam: Present: warm. Absent: pedal edema, tenderness Additional comments: Bandage on right arm clean and dry. Left arm with tender swollen area on left forearm - no erythema or warmth. - Neurological Exam Neurological exam: Present: alert, CN II-XII intact, oriented X3, no focal deficits - Skin Skin exam: Present: dry, intact Additional comments: Purple discoloration indicating chronic hemorrhage. Internal Medicine: Result - Labs CBC & Chem 7: 03/07/17 03:34 03/07/17 03:34 Labs: Short CBC 03/07/17 Range/Units 03:34 WBC 14.2 H (4.3-11.1) K/mcL Hgb 8.7 L (11.5-15.4) g/dL Hct 29.6 L (35.3-44.9) % Plt Count 140 (140-400) K/mcL Neutrophils # 8.0 (1.6-8.9) K/mcL BMP 03/07/17 03:34 Sodium 137 Potassium 4.8 H Chloride 100 Carbon Dioxide 27 BUN 16 Creatinine 2.95 H D Glucose 75 Calcium 9.7 Liver Function 03/07/17 Range/Units 03:34 Total Bilirubin 0.8 (0.2-1.2) mg/dL AST 29 (5-34) Units/L ALT 15 (0-55) Units/L Alkaline Phosphatase 92 (38-126) Units/L Albumin 2.3 L (3.5-5.0) g/dL - ABG Interpretation ABG results: PT/INR, D-dimer PT 21.8 Seconds (9.4-12.1) H 03/07/17 03:34 - Impressions Impressions AV Shunt Angiogram 03/06/17 00:00 IMPRESSION: Thrombosed right upper extremity arteriovenous shunt. Successful mechanical and pharmacological thrombolysis and angioplasty of the venous anastomosis with synagogue of a palpable thrill within the graft. Pseudoaneurysm in the proximal portion of the patient's shunt containing recalcitrant thrombus despite passage of a balloon through this region multiple times. Surgical revision is recommended.. D/ / Mark Lara MD / Mark Lara MD Interpreting Provider: Mark Lara MD Shunt Angiogram 03/06/17 00:00 IMPRESSION: Thrombosed right upper extremity arteriovenous shunt. Successful mechanical and pharmacological thrombolysis and angioplasty of the venous anastomosis with synagogue of a palpable thrill within the graft. Pseudoaneurysm in the proximal portion of the patient's shunt containing recalcitrant thrombus despite passage of a balloon through this region multiple times. Surgical revision is recommended.. D/ / Mark Lara MD / Mark Lara MD Interpreting Provider: Mark Lara MD Extremity Venous Study 03/06/17 00:00 IMPRESSION: Thrombosed right upper extremity arteriovenous shunt. Successful mechanical and pharmacological thrombolysis and angioplasty of the venous anastomosis with synagogue of a palpable thrill within the graft. Pseudoaneurysm in the proximal portion of the patient's shunt containing recalcitrant thrombus despite passage of a balloon through this region multiple times. Surgical revision is recommended.. D/ / Mark Lara MD / Mark Lara MD Interpreting Provider: Mark Lara MD LOPE SEALER OPERATOR, Venous 03/06/17 00:00 IMPRESSION: Thrombosed right upper extremity arteriovenous shunt. Successful mechanical and pharmacological thrombolysis and angioplasty of the venous anastomosis with synagogue of a palpable thrill within the graft. Pseudoaneurysm in the proximal portion of the patient's shunt containing recalcitrant thrombus despite passage of a balloon through this region multiple times. Surgical revision is recommended.. D/ / Mark Lara MD / Mark Lara MD Interpreting Provider: Mark Lara MD LOPE SEALER OPERATOR, Venous 03/06/17 00:00 IMPRESSION: Thrombosed right upper extremity arteriovenous shunt. Successful mechanical and pharmacological thrombolysis and angioplasty of the venous anastomosis with synagogue of a palpable thrill within the graft. Pseudoaneurysm in the proximal portion of the patient's shunt containing recalcitrant thrombus despite passage of a balloon through this region multiple times. Surgical revision is recommended.. D/ / Mark Lara MD / Mark Lara MD Interpreting Provider: Mark Lara MD Vena Cavagram, Superior 03/06/17 00:00 IMPRESSION: Thrombosed right upper extremity arteriovenous shunt. Successful mechanical and pharmacological thrombolysis and angioplasty of the venous anastomosis with synagogue of a palpable thrill within the graft. Pseudoaneurysm in the proximal portion of the patient's shunt containing recalcitrant thrombus despite passage of a balloon through this region multiple times. Surgical revision is recommended.. D/ / Mark Lara MD / Mark Lara MD Interpreting Provider: Mark Laar MD - VTE Documentation of Mechanical Device: Intermittent pneumatic compression device Consult Discharge Plan - Plan Referrals: Brandie Lion MD [Primary Care Provider] - <Beck Parsons P - Last Filed: 03/07/17 18:09> Date of Encounter: 03/07/17 - Assessment and plan (1) Lower gastrointestinal bleed Current Visit: Yes Status: Acute (2) ESRD (end stage renal disease) on dialysis Current Visit: Yes Status: Chronic (3) Atrial fibrillation Current Visit: Yes Status: Chronic Qualifiers: Atrial fibrillation type: paroxysmal Qualified Code(s): I48.0 - Paroxysmal atrial fibrillation (4) Obesity (BMI 30-39.9) Current Visit: No Status: Chronic (5) DVT prophylaxis Current Visit: No Status: Acute - Constitutional Vitals: Temp Pulse Resp BP Pulse Ox 98.0 F 67 20 115/77 100 03/07/17 17:07 03/07/17 17:07 03/07/17 17:07 03/07/17 17:07 03/07/17 17:07 Internal Medicine: Result - Labs CBC & Chem 7: 03/07/17 03:34 03/07/17 03:34 Labs: Short CBC 03/07/17 Range/Units 03:34 WBC 14.2 H (4.3-11.1) K/mcL Hgb 8.7 L (11.5-15.4) g/dL Hct 29.6 L (35.3-44.9) % Plt Count 140 (140-400) K/mcL Neutrophils # 8.0 (1.6-8.9) K/mcL BMP 03/07/17 03:34 Sodium 137 Potassium 4.8 H Chloride 100 Carbon Dioxide 27 BUN 16 Creatinine 2.95 H D Glucose 75 Calcium 9.7 Liver Function 03/07/17 Range/Units 03:34 Total Bilirubin 0.8 (0.2-1.2) mg/dL AST 29 (5-34) Units/L ALT 15 (0-55) Units/L Alkaline Phosphatase 92 (38-126) Units/L Albumin 2.3 L (3.5-5.0) g/dL - ABG Interpretation ABG results: PT/INR, D-dimer PT 21.8 Seconds (9.4-12.1) H 03/07/17 03:34 - Attending Attestation I examined this patient and my medical decision-making was reviewed with the Resident Physician. I agree with the documented findings, disposition and treatment plan as described except to the extent set forth below.
[2017-03-07] MEDS: Gabapentin 100 MG CAPSULE PO SCH ×2 (08:41→20:41)
[2017-03-07] MEDS: Ascorbic Acid 500 MG TABLET PO SCH (08:42)
[2017-03-07] MEDS: Anastrozole 1 MG TABLET PO SCH (08:42)
[2017-03-07] MEDS: Docusate Oral Soln 100 MG/10 ML UDC PO SCH (08:42)
[2017-03-07] MEDS: Calcium Acetate 667 MG CAPSULE PO SCH ×3 (08:43→17:31)
[2017-03-07] MEDS ORDERED: Lidocaine -MPF 1% 2 ML VIAL INFILT ONE (09:04)
[2017-03-07] MEDS: Ondansetron 4 MG/2 ML VIAL IVP PRN ×2 (09:43→17:32)
--- NOTE | 2017-03-07 10:29 | Nephrology Progress Note ---
Date of Encounter: 03/07/17 Time of Encounter: 10:26 - Assessment and Plan (1) ESRD (end stage renal disease) on dialysis Current Visit: Yes Status: Chronic HD today for clearance via the RUE AVG, which is her pre-existing/active AV access. Okay to remove the RIJ temporary HD catheter. The Left forearm AVG, which was previously thrombosed and not in active use for the last few years, developed a Pseudoaneurysm. Appreciate Dr. Charles with Vascular surgery. Out of caution, I've ordered BCx 2 of 2 since the Left forearm pseudoaneurysm is quite red, hot. (2) Hypotension Current Visit: Yes Status: Acute Trending better. Resolved Qualifiers: Hypotension type: unspecified hypotension type Qualified Code(s): I95.9 - Hypotension, unspecified (3) Lower gastrointestinal bleed Current Visit: Yes Status: Acute As per primary (4) Anemia in CKD (chronic kidney disease) Current Visit: No Status: Acute Goal Hgb 10-11. Will monitor. Cont BRANDO with iHD. Qualifiers: Chronic kidney disease stage: stage 4 (severe) Qualified Code(s): N18.4 - Chronic kidney disease, stage 4 (severe); D63.1 - Anemia in chronic kidney disease (5) Hypervolemia Current Visit: No Status: Acute See above Qualifiers: Hypervolemia type: other Qualified Code(s): E87.79 - Other fluid overload (6) Complications, dialysis, catheter, mechanical Current Visit: Yes Status: Acute Appreciate Vasc Surgery and IR. Qualifiers: Encounter type: initial encounter Qualified Code(s): T82.49XA - Other complication of vascular dialysis catheter, initial encounter Subjective Principal diagnosis: GI Bleed Interval history: Pt was s/e earlier today while on HD. She did not affirm N/V/D or uremic symptoms. Objective - Vital Signs Vital signs: Vital Signs Temp Pulse Resp BP Pulse Ox 03/07/17 06:55 98.9 F 88 20 98/67 100 03/07/17 04:36 98.2 F 78 21 93/62 100 03/07/17 00:28 98 F 71 24 91/61 100 03/06/17 20:10 24 97 03/06/17 19:06 97.6 F 82 17 131/87 100 03/06/17 14:57 72 25 140/67 94 08/22/17 14:49 96 12 190/133 93 03/06/17 14:34 73 13 125/56 98 03/06/17 14:24 104 20 146/111 96 03/06/17 14:13 80 13 160/83 97 03/06/17 12:40 98 F 76 18 120/77 98 Intake and Output 03/06/17 03/07/17 03/07/17 23:59 07:59 15:59 Intake Total 30 / 30 0 / 0 120 / 120 Output Total 0 / 0 Balance 30 / 30 0 / 0 120 / 120 Intake: Oral 30 / 30 0 / 0 120 / 120 Output: Urine 0 / 0 Other: Meal npo Percent of Meal Consumed 0% Weight 114.63 kg Blood Glucose* 85 66 Patient Weight 03/07/17 23:59 Weight 114.63 kg - General Appearance Exam: General appearance: Present: well-developed, well-nourished, appears started age , fatigue, frail EENT: Present: ATNC, PERRL, mucous membranes moist Neck: Present: supple Respiratory: Present: course breath sounds Cardiology: Present: edema, normal S1, normal S2 Dialysis Vascular Access: Venous Catheter ([facility] HD catheter was C/D/I). RUE AVG now has a bruit. Left UE with enlarged pulsatile mass suspecting pseudoaneurysm Gastrointestinal: Present: normoactive bowel sounds, no tenderness Integumentary: Present: no rash, warm and dry Neurologic: Present: no focal deficit, no asterixis, alert and oriented x3 Musculoskeletal: Present: no deformities, no erythema, no cyanosis Psychiatric: Present: mood/affect appropriate, cooperative - Lab 03/07/17 03:34 03/07/17 03:34 Most recent lab results Calcium 9.7 mg/dL (8.6-10.8) 03/07/17 03:34 Phosphorus 3.2 mg/dL (2.3-4.7) 03/07/17 03:34 Magnesium 2.0 mg/dL (1.6-2.6) 03/07/17 03:34 - VTE Documentation of Mechanical Device: Intermittent pneumatic compression device Consult Discharge Plan - Plan Referrals: Brandie Lion MD [Primary Care Provider] -
[2017-03-07] MEDS: Budesonide/Formoterol 160/4.5 MDI IH SCH ×2 (10:50→19:42)
[2017-03-07] MEDS ORDERED: *HR* Metoprolol 5 MG/5 ML VIAL IVP SCH (11:16)
[2017-03-07] MEDS ORDERED: 0.9 % Sodium Chloride 1,000 ML ONE (11:42)
[2017-03-07] MEDS ORDERED: *HR* OxyCODONE/APAP 7.5/325 TABLET PO PRN (12:41)
[2017-03-07] MEDS ORDERED: CeFAZolin Pre 2,000 MG/100 ML 2,000 MG/100 ML BAG IVPB ONE (18:11)
--- NOTE | 2017-03-07 18:26 | Vascular/Endovas Progress Note ---
Date of Encounter: 03/07/17 Time of Encounter: 18:23 - Assessment and plan (1) ESRD (end stage renal disease) on dialysis Current Visit: Yes Status: Chronic The patient has long-term kidney failure requiring dialysis. She has had multiple interventions for the dialysis access. She presently has a temporary right sided internal jugular vein dialysis catheter. She has had some type of intervention of the right upper extremity vascular access by interventional radiology earlier today. (2) Atrial fibrillation Current Visit: Yes Status: Chronic Patient is under medical treatment for atrial fibrillation Qualifiers: Atrial fibrillation type: paroxysmal Qualified Code(s): I48.0 - Paroxysmal atrial fibrillation (3) Melena Current Visit: Yes Status: Acute Patient is under treatment for GI bleeding (4) Pseudoaneurysm of brachial artery Current Visit: Yes Status: Acute Patient has an expanding painful mass that is pulsatile at the left proximal forearm. She has had previous vascular access surgery at this area though the exact time and place and circumstances of that operation are not known at the time of this dictation. I had requested a duplex scan be performed of this area. The report is presently not available. I will research into this further. In light of the patient's multiple medical problems I would suggest that this area be surgically addressed during this hospitalization. I would tentatively suggest that this be performed on with an exploration and resection of this pseudoaneurysm. I explained this to the patient. All questions were answered. The patient is agreeable to proceed. I will at my office to make arrangements for this tentatively for this upcoming . Plan on left forearm pseudoaneurysm debridement and resection tomorrow morning. - Subjective Interval history: Kaelyn Murphy is a 72-year-old white female who was seen in consultation for left antecubital swelling. The patient is had multiple previous vascular access procedures. On my recheck today the patient has no complaints. The right upper extremity axis was used for dialysis apparently successfully. The left forearm swelling appears slightly larger in size and there is more purplish discoloration on the anterior surface. This would certainly indicate that the pseudoaneurysm is growing and raises the specter of potential infection. This area will be cultured at surgery tomorrow. Vital Signs, Last 4 Hours Temp Pulse Resp BP Pulse Ox 03/07/17 17:07 98.0 F 67 20 115/77 100 Exam: The left upper extremity demonstrates a area of pulsatile swelling in the antecubital area. This is consistent with pseudoaneurysm as documented on my consultation yesterday. We'll plan on surgical excision of this area tomorrow with cultures. - VTE Documentation of Mechanical Device: Intermittent pneumatic compression device Results 03/07/17 03:34 03/07/17 03:34 Lab Results, Last 24 hours 03/07/17 03/07/17 03/07/17 03:34 03:34 03:34 WBC 14.2 H Hgb 8.7 L Hct 29.6 L Plt Count 140 INR APTT Sodium 137 Potassium 4.8 H Chloride 100 Carbon Dioxide 27 BUN 16 Creatinine 2.95 H D Glucose 75 Calcium 9.7 Magnesium 2.0 Total Bilirubin 0.8 AST 29 ALT 15 Alkaline Phosphatase 92 03/07/17 03:34 WBC Hgb Hct Plt Count INR 2.0 APTT 30.9 Sodium Potassium Chloride Carbon Dioxide BUN Creatinine Glucose Calcium Magnesium Total Bilirubin AST ALT Alkaline Phosphatase Consult Discharge Plan - Plan Referrals: Brandie Lion MD [Primary Care Provider] -
[2017-03-07] MEDS ORDERED: Prochlorperazine 10 MG/2 ML VIAL IM PRN (21:10)
[2017-03-08 05:32] LABS: Ionized Calcium 1.2 mmol/L (1.15-1.35)
[2017-03-08] MEDS ORDERED: ceFAZolin 2,000 MG in D5% in Water 100 ML IVPB ONE (06:00)
[2017-03-08 06:06] LABS: Eosinophils # 0.2 K/mcL (0.0-0.6); Hematocrit 30.1 % (35.3-44.9); Hemoglobin 8.8 g/dL (11.5-15.4); Mean Corpuscular HGB Conc 29.2 g/dL (31.6-35.5); Mean Corpuscular Hemoglobin 28.8 pg (28.0-33.3); Mean Corpuscular Volume 98.4 fL (83.0-100.0); Mean Platelet Volume 11.1 fL (9.4-12.4); Nucleated Red Blood Cells 5.1 /100 WBC (0); Platelet Count 161 K/mcL (140-400); Red Blood Count 3.06 M/mcL (3.82-4.97)
[2017-03-08] MEDS: Pantoprazole 40 MG VIAL IVP SCH ×2 (06:32→17:18)
[2017-03-08 06:49] LABS: Albumin 2.3 g/dL (3.5-5.0); Albumin/Globulin Ratio 0.7 (1.1-2.2); Bilirubin,Total 0.7 mg/dL (0.2-1.2); Calcium 8.8 mg/dL (8.6-10.8); Globulin 3.2 g/dL (2.4-3.5); Magnesium 1.8 mg/dL (1.6-2.6); Phosphorous 3.2 mg/dL (2.3-4.7); Total Protein 5.5 g/dL (6.0-8.3)
--- NOTE | 2017-03-08 07:54 | Internal Med Progress Note ---
<Addy Marti - Last Filed: 03/08/17 11:31> Date of Encounter: 03/08/17 Time of Encounter: 10:03 - Assessment and plan (1) Upper GI bleed Current Visit: Yes Status: Acute Assessment and plan: Hematochezia and Melena prior to admission - received a total of 4 U pRBCs since admission Reported non-bloody BM yesterday afternoon Hgb currently 8.8 - remaining stable EGD 02/28/17 showed dark red blood clots in gastric fundus, but no acute bleed EGD 03/01/17 showed telengectasia cauterized by GI Plan: Continue to monitor Hgb and BMs GI consulted - possible colonoscopy in the future Continue PPI (2) Anemia Current Visit: No Status: Chronic Assessment and plan: Has been stable near 8.8 the past few days 4 U pRBCs since admission Likely secondary chronic disease (Hgb 8-9 is baseline) with acute changes due to GI bleed Plan: Continue to monitor Hgb Transfuse as needed to remain above Hgb 8 Qualifiers: Anemia type: due to chronic kidney disease Chronic kidney disease stage: on chronic dialysis Qualified Code(s): N18.6 - End stage renal disease; D63.1 - Anemia in chronic kidney disease; Z99.2 - Dependence on renal dialysis (3) Hypotension Current Visit: Yes Status: Acute Assessment and plan: Current 80-90s/60s - continue to monitor Metoprolol held yesterday - HR 75 Qualifiers: Hypotension type: unspecified hypotension type Qualified Code(s): I95.9 - Hypotension, unspecified (4) Pseudoaneurysm of brachial artery Current Visit: Yes Status: Acute Assessment and plan: Painful mass of left arm - no erythema or warmth Venous study: Pseudoaneurysm in the proximal portion of the patient's shunt containing recalcitrant thrombus despite passage of a balloon through this region multiple times. Surgical revision is recommended. Plan: Vascular surgery consulted - surgery today (5) ESRD (end stage renal disease) on dialysis Current Visit: Yes Status: Chronic Assessment and plan: RUE AV access obtained Right IJ must stay in currently for IV access Plan: Nephrology consulted - appreciate recommendations Continue to monitor (6) Chronic a-fib Current Visit: No Status: Chronic Assessment and plan: Currently HR 75, irregular rhythm Metoprolol on hold due to low BP (90s/60s) Continue to monitor - restart Metoprolol when BP is normalized (7) Transaminitis Current Visit: Yes Status: Acute Assessment and plan: Increased today Switch from percocet to oxycodone Recheck tomorrow (8) DVT prophylaxis Current Visit: No Status: Acute Assessment and plan: SCDs No anticoagulation due to GI bleed and anemia - Subjective Interval history: Patient seen and examined. She is doing well, but reports feeling very tired. More alert than yesterday. Denies other complaints, denies chest pain, dyspnea, N/V/D, melena, hematochezia, or leg pain/swelling. BM yesterday without any blood. She is going for vascular surgery today. - Constitutional Vitals: Temp Pulse Resp BP Pulse Ox 98.1 F 75 14 85/51 100 03/08/17 07:22 03/08/17 07:22 03/08/17 07:22 03/08/17 07:22 03/08/17 07:22 General appearance: Present: A&O X 3, no acute distress, answers questions appropriately - Head Head exam: Present: atraumatic, normocephalic - Eye Eye exam: Present: conjuntiva pink, sclera anicteric - ENT ENT exam: Present: mucous membranes dry - Neck Additional comments: Right IJ in place currently - clean and dry, no erythema or warmth - Respiratory Respiratory exam: Present: decreased breath sounds. Absent: rales, rhonchi, wheezes - Cardiovascular Cardiovascular exam: Present: irregular rhythm, +S1, +S2. Absent: diastolic murmur, systolic murmur - GI/Abdominal GI/Abdominal exam: Present: normal bowel sounds, soft. Absent: distended, rigid , tenderness - Extremities Exam Extremities exam: Present: pedal edema, warm, radial pulses palpable and symmetrical Additional comments: Bandage on right arm clean and dry. Left arm with tender swollen area on left forearm - no erythema or warmth. Mild swelling in upper extremities as well - Neurological Exam Neurological exam: Present: alert, CN II-XII intact, oriented X3, no focal deficits - Skin Skin exam: Present: dry, intact Internal Medicine: Result - Labs CBC & Chem 7: 03/08/17 05:15 03/08/17 05:15 Labs: Short CBC 03/08/17 Range/Units 05:15 WBC 19.7 H (4.3-11.1) K/mcL Hgb 8.8 L (11.5-15.4) g/dL Hct 30.1 L (35.3-44.9) % Plt Count 161 (140-400) K/mcL BMP 03/08/17 05:15 Sodium 139 Potassium 4.0 Chloride 97 L Carbon Dioxide 29 BUN 15 Creatinine 2.79 H Glucose 91 Calcium 8.8 Liver Function 03/08/17 Range/Units 05:15 Total Bilirubin 0.7 (0.2-1.2) mg/dL AST 350 H (5-34) Units/L ALT 229 H (0-55) Units/L Alkaline Phosphatase 101 (38-126) Units/L Albumin 2.3 L (3.5-5.0) g/dL - ABG Interpretation ABG results: PT/INR, D-dimer PT 21.8 Seconds (9.4-12.1) H 03/07/17 03:34 - VTE Documentation of Mechanical Device: Intermittent pneumatic compression device Consult Discharge Plan - Plan Referrals: Brandie Lion MD [Primary Care Provider] - 03/14/17 9:15 am () <Beck Parsons P - Last Filed: 03/08/17 18:27> Date of Encounter: 03/08/17 - Assessment and plan (1) Lower gastrointestinal bleed Current Visit: Yes Status: Acute (2) ESRD (end stage renal disease) on dialysis Current Visit: Yes Status: Chronic (3) Atrial fibrillation Current Visit: Yes Status: Chronic Qualifiers: Atrial fibrillation type: paroxysmal Qualified Code(s): I48.0 - Paroxysmal atrial fibrillation (4) Obesity (BMI 30-39.9) Current Visit: No Status: Chronic (5) DVT prophylaxis Current Visit: No Status: Acute - Constitutional Vitals: Temp Pulse Resp BP Pulse Ox 97.7 F 82 16 112/62 97 03/08/17 12:58 03/08/17 16:06 03/08/17 16:20 03/08/17 16:06 03/08/17 16:20 Internal Medicine: Result - Labs CBC & Chem 7: 03/08/17 05:15 03/08/17 05:15 Labs: Short CBC 03/08/17 Range/Units 05:15 WBC 19.7 H (4.3-11.1) K/mcL Hgb 8.8 L (11.5-15.4) g/dL Hct 30.1 L (35.3-44.9) % Plt Count 161 (140-400) K/mcL Neutrophils # 14.6 H (1.6-8.9) K/mcL BMP 03/08/17 05:15 Sodium 139 Potassium 4.0 Chloride 97 L Carbon Dioxide 29 BUN 15 Creatinine 2.79 H Glucose 91 Calcium 8.8 Liver Function 03/08/17 Range/Units 05:15 Total Bilirubin 0.7 (0.2-1.2) mg/dL AST 350 H (5-34) Units/L ALT 229 H (0-55) Units/L Alkaline Phosphatase 101 (38-126) Units/L Albumin 2.3 L (3.5-5.0) g/dL - ABG Interpretation ABG results: PT/INR, D-dimer PT 21.8 Seconds (9.4-12.1) H 03/07/17 03:34 - Attending Attestation I examined this patient and my medical decision-making was reviewed with the Resident Physician. I agree with the documented findings, disposition and treatment plan as described except to the extent set forth below.
[2017-03-08] MEDS: Calcium Acetate 667 MG CAPSULE PO SCH ×2 (08:02→17:18)
[2017-03-08 08:04] LABS: Monocytes # 1.6 K/mcL (0.0-1.3); Neutrophils # 14.6 K/mcL (1.6-8.9)
[2017-03-08] MEDS: Ascorbic Acid 500 MG TABLET PO SCH (08:04)
[2017-03-08 08:05] LABS: Anisocytosis 2+ (Not Present); Basophilic Stippling 1+ (Not Present); Platelet Estimate Normal (Normal)
[2017-03-08] MEDS: Gabapentin 100 MG CAPSULE PO SCH ×2 (08:05→21:34)
[2017-03-08 08:06] LABS: Polychromasia 1+ (Not Present); Toxic Granulation Present (Not Present)
[2017-03-08] MEDS: Docusate Oral Soln 100 MG/10 ML UDC PO SCH (08:06)
[2017-03-08] MEDS: Anastrozole 1 MG TABLET PO SCH (08:06)
[2017-03-08 08:07] LABS: Large Platelets Present (Not Present)
[2017-03-08] MEDS: Budesonide/Formoterol 160/4.5 MDI IH SCH ×2 (08:15→22:16)
[2017-03-08] MEDS: Ondansetron 4 MG/2 ML VIAL IVP PRN (08:57)
[2017-03-08] MEDS ORDERED: Heparin 1,000 UNITS/500 mL NS 500 ML ONE (09:36)
--- NOTE | 2017-03-08 09:38 | Anesthesia Evaluation PreOp ---
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, karla long 7.5 years) Pulmonary History: Former smoker, COPD, JOSE Dx, Other (requires 3L NC) CONSERVATION POLICY ANALYST History: TIA ("several years ago" "couldn't use legs for about 30 mins") Other Medical History: Renal (esrd/dialysis last yesterday), Diabetes Type II, GERD Anesthesia History: No Prior Anesthetic Complications, Past Anesthesia (breast, bilat ue vascular access creation) Alcohol Use: rarely Drug use: none Medications and Allergies Anastrozole [Arimidex] 1 mg PO DAILY 04/05/15 [History] Aspirin Enteric Coated [Aspirin EC] 325 mg PO DAILY 04/05/15 [History] Atorvastatin [Lipitor] 10 mg PO HS 04/05/15 [History] Calcium Acetate [Phos-LO] 2,001 mg PO TIDWM 04/05/15 [History] Cinacalcet [Sensipar] 30 mg PO DAILY 04/05/15 [History] Escitalopram [Lexapro] 10 mg PO DAILY 04/05/15 [History] Fluticasone/Salmeterol [Advair 500-50 Diskus] 1 each IH BID 04/05/15 [History] Gabapentin [Neurontin] 100 mg PO BID 04/05/15 [History] Ipratropium/Albuterol Sulfate [Combivent Respimat Inhal [place]] 1 puff IH DAILY 04/05/15 [History] Vitamin B Complex [B Complex] 1 each PO DAILY 04/05/15 [History] Sevelamer [Renvela] 800 mg PO TIDWM 09/14/15 [History] Diltiazem CD (24hr) [Cardizem CD] 120 mg PO DAILY cap.er.24h 03/01/16 [Rx] Metoprolol [Lopressor] 25 mg PO BID tablet 03/01/16 [Rx] Acetaminophen [Tylenol] 650 mg PO Q6H PRN 02/27/17 [History] Amiodarone [Cordarone] 200 mg PO DAILY 02/27/17 [History] Benzonatate [Tessalon] 100 mg PO TID PRN 02/27/17 [History] DiphenhydraMINE [Benadryl] 50 mg PO Q6H PRN 02/27/17 [History] Docusate [Colace] 200 mg PO HS 02/27/17 [History] Ferrous Sulfate 325 mg PO DAILY 02/27/17 [History] GuaiFENesin/Dextromethorphan [Tussin Dm Syrup] 5 ml PO Q4H PRN 02/27/17 [History ] Guaifenesin [Mucinex] 1,200 mg PO Q12H PRN 02/27/17 [History] Ipratropium/Albuterol Neb [Duoneb] 3 ml IH Q6HR 02/27/17 [History] Lidocaine/Prilocaine CREAM [Emla] 1 appl TP ONCE PRN 02/27/17 [History] Loratadine [Claritin] 10 mg PO DAILY 02/27/17 [History] Magnesium Hydroxide [Milk of Magnesia] 2,400 mg PO DAILY PRN 02/27/17 [History] Midodrine HCl 2.5 mg PO BID 02/27/17 [History] Nitroglycerin [Nitrostat] 0.4 mg SL Q5M PRN 02/27/17 [History] OxyCODONE Immed Rel [Roxicodone 5 MG] 5 mg PO Q4H PRN 02/27/17 [History] OxyCODONE Immed Rel [Roxicodone 5 MG] 10 mg PO Q4H PRN 02/27/17 [History] Pantoprazole Sodium [Protonix] 40 mg PO BIDWM 02/27/17 [History] Patiromer Calcium Sorbitex [Veltassa] 8.4 gm PO DAILY 02/27/17 [History] Promethazine [Phenergan] 25 mg PO Q6H PRN 02/27/17 [History] Saliva Substitute Combo No.3 [Aquoral] 2 spray MM BID 02/27/17 [History] 3 Allergy/AdvReac Type Severity Reaction Status Date / Time Erythromycin Base AdvReac Mild Abdominal Verified 02/25/16 09:23 Pain Edetate Calcium Disodium AdvReac See Verified 02/27/17 19:22 Comments Nicardipine AdvReac See Verified 02/27/17 19:22 Comments Warfarin [From Coumadin] AdvReac See Verified 02/27/17 19:22 Comments blood thinners AdvReac Mild Nose Bleed Uncoded 04/05/15 12:13 dihydropyridine AdvReac Mild Abdominal Uncoded 04/05/15 12:13 Pain - Meds/Allergy Pre-op Review Medications Reviewed: Yes Allergies Reviewed: Yes Beta Blockers on Current Med List: Yes If Beta Blockers taken, Date/Time (Last Dose taken): metoprolol at 8:05 Anesthesia Results - Labs 03/08/17 05:15 03/08/17 05:15 - Imaging EKG: report reviewed (af/rvf on 03/04 with rate at 114) Additional studies: Echo 2016 Essentially normal right ventricular structure and function Mild-moderate pulmonary htn RVSP 45 EF 55% Anesthesia Exam Vital Signs/O2 Sat/Glucose, Most Current Temp Pulse Resp BP Pulse Ox 03/08/17 07:22 98.1 F 75 14 85/51 100 Blood glucose: 95 (at 5:54) Height: 1.73 Weight: 114 NPO (# of Hours): >8 - HEENT Pupil (Motor): Pupils equal, EOMI Mallampati: II Teeth: Poor dentition Oral Opening: Greater than 3 - CONSERVATION POLICY ANALYST LOC: Oriented CONSERVATION POLICY ANALYST Motor: Deficit RUE, Deficit LUE, Deficit RLE, Deficit LLE, Deficit Face CONSERVATION POLICY ANALYST Sensory: Deficit: RUE, LUE, RLE, LLE, Face - Cardiac Rhythm: Regular Murmur: None - Pulmonary Breath Sounds: bilateral Clear Respiratory Effort: Symmetrical Anesthesia Assess/Plan ASA Score: 4 Modified Ivette Scale for Level of Consciousness: Cooperative, oriented, and tranquil Anesthetic Plan: General Monitoring Plan: Standard Monitors Recovery Plan: PACU
[2017-03-08] MEDS ORDERED: *HR* OxyCODONE Immed Rel 5 MG TABLET PO PRN (10:21)
[2017-03-08] MEDS ORDERED: SUGAMMADEX SODIUM 500 MG/5 ML VIAL IV ONE (10:55)
--- NOTE | 2017-03-08 12:05 | Operative Note ---
Date of procedure: 03/08/17 Pre-op diagnosis: left forearm pseudoaneurysm Post-op diagnosis: same Procedure: resection of left forearm pseudoaneurysm thrombectomy of left brachial/forearm vessels with 3 Fr Kasey catheter Complications: none Anesthesia: WESLEYA Surgeon: Crispin Gallardo Estimated blood loss (cc): 100 Specimen: C&S/Gram Stain/Permanent Condition: stable Disposition: PACU Procedure in Detail: History Mrs. Murphy is a 72-year-old white female who was admitted for GI bleeding. Patient has had multiple surgeries and procedures for vascular access for hemodialysis over the years. She was noted to have a pulsatile mass in the left antecubital area and vascular surgery was asked to see the patient as an inpatient consultation. This area was growing and tender the patient now comes the operating room to resect what appears to be a low aneurysm. Procedure After informed consent was obtained the patient was placed on the operating room table. General anesthesia was established. The left upper extremity was then sterilely prepped and draped. A timeout protocol was observed. An incision was made above the antecubital crease to identify and control the brachial artery. This was made through a previous incision which was the basis of the arterial anastomosis for the upper arm AV shunt which is chronically thrombosed. The brachial artery was identified and controlled. It appeared to be distorted by tension from the thrombosed shunt. Therefore the thrombosed shunt was divided and a small piece resected. A small stump of the shunt was left attached to the brachial artery and this was closed with a running 6-0 Prolene. With the proximal control assured an incision was then made directly over the pulsatile mass in the antecubital area. A pseudoaneurysm was indeed encountered. This was then dissected circumferentially and was freed up so that it could be removed in total. A large amount of thrombus was found within the pseudoaneurysm. There is no gross pus or edema of the surrounding tissue. Cultures however were taken as well as a Gram stain. Dissection was made and control was obtained of the bois forte brachial artery at the area of the anastomosis. The pseudoaneurysm was then resected and the brachial artery was evaluated. Thrombus was found in the brachial artery and extending into the forearm. Therefore a catheter-based thrombectomy was performed using a 3 [place] Kasey catheter. This was passed in an antegrade orientation from the brachial artery opening to the level of the wrist. After this was performed the backflow was improved. The artery was then flushed both proximally and distally. The brachial artery site was then oversewn to preserve continuity and pulsatile flow into the brachial keel artery and into the radial and ulnar arteries. A patch was not necessary as a small rim of the residual shunt was used. After appropriate backbleeding and flushing the artery was opened. The patient demonstrated multiphasic Doppler signals at the wrist at both the radial and ulnar artery. The incisions were then irrigated with antibiotic-containing solution. Hemostasis was achieved. The wounds were then closed in layers using 30 and 4-0 Vicryl suture. There were no intraoperative complications. The patient tolerated the procedure well. The patient was taken to the recovery room in stable condition.
[2017-03-08] MEDS ORDERED: *HR* FentaNYL (PF) 100 MCG/2 ML VIAL IVP PRN (12:23)
[2017-03-08] MEDS ORDERED: Ondansetron 4 MG/2 ML VIAL IVP PRN ×2 (12:28→15:19)
--- NOTE | 2017-03-08 12:49 | Anesthesia Evaluation Post Op ---
Date of Encounter: 03/08/17 Time of Encounter: 12:46 - Vital Signs Vital Signs: Vital Signs/O2 Sat, Most Current Temp Pulse Resp BP Pulse Ox 97.1 F L 78 18 122/69 97 03/08/17 12:15 03/08/17 12:35 03/08/17 12:35 03/08/17 12:35 03/08/17 12:35 - Lungs Lungs: Clear Ascult./Percussion - Airway Airway: Non-obstructed - Cardiovascular Irregular Rate, Baseline Rhythm - Mental Status Mental Status: Asleep with brisk response to light stimulation - Pain Pain Scale: 8 (baseline from preop) Pain Scale used: Numeric (1 - 10) - Nausea Vomiting Nausea Vomiting: Present (patient has been nauseated for several days with no improvement) - Hydration Hydration: Ice chips, Has not voided - Discharge PostOp Status: Transfer Patient to floor
[2017-03-08] MEDS ORDERED: *HR* Promethazine 25 MG/ML VIAL IVP PRN (13:25)
[2017-03-08] MEDS ORDERED: Naloxone 0.4 MG/ML INJ IVP PRN (13:59)
[2017-03-08] MEDS ORDERED: Acetaminophen 325 MG TABLET PO PRN (14:49)
[2017-03-08] MEDS ORDERED: Albuterol 2.5 MG/3 ML NEBULIZER IH PRN (14:55)
[2017-03-08] MEDS ORDERED: D5% in Water 1,000 ML IVC PRN (14:57)
[2017-03-08] MEDS ORDERED: *HR* Dextrose 50 % in Water (Syg) 50 ML SYRINGE IVP PRN (14:58)
[2017-03-08] MEDS ORDERED: Saliva Stimulant 100ml BOTTLE PO PRN (15:13)
[2017-03-08] MEDS: ceFAZolin 2,000 MG in D5% in Water 100 ML IVPB SCH (15:44)
--- NOTE | 2017-03-08 17:35 | Nephrology Progress Note ---
Date of Encounter: 03/08/17 Time of Encounter: 18:00 - Assessment and Plan (1) ESRD (end stage renal disease) on dialysis Current Visit: Yes Status: Chronic Next HD is due for tomorrow. Will plan to use the RUE AVG. The RIJ temporary HD catheter has been left in place since the pt has no other peripheral IV access options (both UE have requiring vascular intervention this week). Keeping the RIJ temp HD catheter is reasonable for a few days, but if she were to remain hospitalized for very long, then would recommend changing it to a simple triple lumen CVC. Pending BCx s/p Pseudoaneurysm resection. Appreciate all of Dr. Gallardo's assistance. Continue to follow a renal protective strategy (2) Lower gastrointestinal bleed Current Visit: Yes Status: Acute As per primary (3) Anemia in CKD (chronic kidney disease) Current Visit: No Status: Acute Goal Hgb 10-11. Will monitor. Cont BRANDO with iHD. Qualifiers: Chronic kidney disease stage: stage 4 (severe) Qualified Code(s): N18.4 - Chronic kidney disease, stage 4 (severe); D63.1 - Anemia in chronic kidney disease (4) Hypervolemia Current Visit: No Status: Acute Plan for HD tomorrow. Qualifiers: Hypervolemia type: other Qualified Code(s): E87.79 - Other fluid overload (5) Complications, dialysis, catheter, mechanical Current Visit: Yes Status: Acute Appreciate Vasc Surgery and IR. See above Qualifiers: Encounter type: initial encounter Qualified Code(s): T82.49XA - Other complication of vascular dialysis catheter, initial encounter Subjective Principal diagnosis: GI Bleed Interval history: Pt was s/e. She underwent surgery for the pseudoaneurysm. She reported having some nausea but denied CP. Some fatigue as well was reported. Objective - Vital Signs Vital signs: Vital Signs Temp Pulse Resp BP Pulse Ox 03/08/17 16:20 16 97 03/08/17 16:06 82 14 112/62 93 03/08/17 15:30 75 93/62 98 03/08/17 15:00 72 100/55 96 03/08/17 14:30 80 112/53 95 03/08/17 14:15 88 16 111/60 93 03/08/17 14:00 77 123/59 92 03/08/17 13:45 89 101/62 88 03/08/17 13:30 80 22 114/56 93 03/08/17 13:15 72 20 107/70 92 03/08/17 12:58 97.7 F 76 22 105/57 95 03/08/17 12:45 97.4 F L 83 18 127/52 97 03/08/17 12:35 78 18 122/69 97 03/08/17 12:25 70 18 121/61 95 03/08/17 12:15 97.1 F L 83 16 121/41 96 03/08/17 08:15 18 93 03/08/17 07:22 98.1 F 75 14 85/51 100 03/08/17 04:25 98 F 74 17 87/65 100 03/07/17 23:50 97.5 F L 78 18 126/66 98 03/07/17 21:15 131/81 03/07/17 20:14 97.5 F L 86 16 86/60 100 03/07/17 19:42 19 88 Intake and Output 03/08/17 03/08/17 03/08/17 07:59 15:59 23:59 Intake Total 100 / 100 Output Total 100 / 100 Balance 0 / 0 Intake: IV Fluids 100 / 100 Ancef 2,000 MG In 100 / 100 Dextrose 5% 100 ML @ 200 mls/hr IVPB PREOP ONE Rx# :[id number] Oral 0 / 0 Output: Urine 0 / 0 Estimated Blood Loss 100 / 100 Other: Meal Breakfast Percent of Meal Consumed 0% Weight 114.62 kg Blood Glucose* 95 107 Patient Weight 03/08/17 23:59 Weight 114.62 kg - General Appearance General appearance: Present: well-developed, well-nourished, appears started age , obese, fatigue, frail EENT: Present: ATNC, PERRL, mucous membranes moist Neck: Present: supple Respiratory: Present: clear Cardiology: Present: edema (trace LE pretibial pitting edema), regular rate, normal S1, normal S2 Additional Comments: RUE AVG with +thrill/bruit. Left forearm dressing was C/D/I. RIJ temporary HD catheter also had dressing that was C/D/I Gastrointestinal: Present: normoactive bowel sounds, no tenderness, no guarding Integumentary: Present: warm and dry Neurologic: Present: no focal deficit, no asterixis, confused Musculoskeletal: Present: no cyanosis, no clubbing Psychiatric: Present: mood/affect appropriate, cooperative - Lab 03/08/17 05:15 03/08/17 05:15 Most recent lab results Calcium 8.8 mg/dL (8.6-10.8) 03/08/17 05:15 Phosphorus 3.2 mg/dL (2.3-4.7) 03/08/17 05:15 Magnesium 1.8 mg/dL (1.6-2.6) 03/08/17 05:15 - VTE Documentation of Mechanical Device: Intermittent pneumatic compression device Consult Discharge Plan - Plan Referrals: Brandie Lion MD [Primary Care Provider] - 03/14/17 9:15 am ()
[2017-03-08] MEDS ORDERED: 0.9 % Sodium Chloride 250 ML IVC PRN (17:39)
[2017-03-08] MEDS ORDERED: Ipratropium/Albuterol Neb 3 ML IH SCH (18:00)
--- NOTE | 2017-03-08 18:11 | Arterial Study Report ---
UE Arterial Duplex Patient Name:Kaelyn Murphy Order Number:[id number] Procedure Date:03/06/2017 Date:6Age:72 yrs Gender:Female Location:[facility] Room #: IC01 Residential Door Installer:Cat Adams RDCS, LISA Referring MD:Jose Geiger DO fugitive detective:Brandie Lion MD Reading MD:Evans Davis MD Primary Indications:Rapidly enlarging mass at AV shunt, pain Risk Factors Yes/No Hypertension Yes Diabetes No Hypercholesterolemia Yes Smoker Previous Yes Impressions: Partially thrombosed pseudoaneurysm left brachial artery. Non-funtioning previous fistula Recommendations: Test completed on 03/06/2017 at 11:30:54 am. Critical findings reported to Dr. Jose Geiger by [email or web address] page at 11:40:21 am on 03/06/2017 by Cat Adams RDCS, RVT. Findings Arterial Duplex Results: Left: The PSV in the left subclavian artery is 123 cm/s. The PSV in the left axillary artery is 156 cm/s. The PSV in the left proximal brachial artery is 187 cm/s. The PSV in the left mid brachial artery is 210 cm/s. The PSV in the left distal brachial artery is 217 cm/s. There is a partially thrombosed pseudoaneurysm involving the left distal brachial artery. The PSV in the left proximal radial artery is 118 cm/s. The PSV in the left mid radial artery is 125 cm/s. The PSV in the left distal radial artery is 159 cm/s. The PSV in the left proximal ulnar artery is 77 cm/s. The PSV in the left mid ulnar artery is 104 cm/s. The PSV in the left distal ulnar artery is 79 cm/s. Prior Study: Previously used and clotted AV fistula graft was seen. UE Duplex Side Vessel PSV EDV Assessment Left Subclavian 123 Left Axillary 156 Left Proximal Brachial 187 Left Mid Brachial 210 Left Distal Brachial 217 Left Proximal Radial 118 Left Mid Radial 125 Left Distal Radial 159 Left Proximal Ulnar 77 Left Mid Ulnar 104 Left Distal Ulnar 79 Updated by Evans Davis MD on 03/08/2017 6:05:16 PM electronically signed on 03/08/2017 6:05:39 PM with status of Final
[2017-03-08] MEDS: *HR* Promethazine 25 MG/ML VIAL IVP PRN (21:49)
[2017-03-08] MEDS: Ipratropium/Albuterol Neb 3 ML IH SCH (22:16)
[2017-03-09] MEDS: ceFAZolin 2,000 MG in D5% in Water 100 ML IVPB SCH ×2 (00:26→14:04)
[2017-03-09] MEDS: *HR* Promethazine 25 MG/ML VIAL IVP PRN ×2 (03:41→08:38)
[2017-03-09] MEDS: *HR* HYDROcodone/Acet 5/325 mg TABLET PO PRN ×2 (03:44→11:23)
[2017-03-09 03:54] LABS: Mean Platelet Volume 11.4 fL (9.4-12.4); Red Cell Distribution Width 21.2 % (11.5-14.5)
[2017-03-09] MEDS: Ipratropium/Albuterol Neb 3 ML IH SCH ×3 (03:54→16:08)
[2017-03-09 03:55] LABS: Hematocrit 29.9 % (35.3-44.9); Mean Corpuscular HGB Conc 30.1 g/dL (31.6-35.5); Mean Corpuscular Hemoglobin 29.5 pg (28.0-33.3); Platelet Count 178 K/mcL (140-400); Red Blood Count 3.05 M/mcL (3.82-4.97)
[2017-03-09 04:07] LABS: Albumin 2.2 g/dL (3.5-5.0); Albumin/Globulin Ratio 0.7 (1.1-2.2); Bilirubin,Total 0.6 mg/dL (0.2-1.2); Calcium 8.7 mg/dL (8.6-10.8); Globulin 3.2 g/dL (2.4-3.5); Potassium 4.9 mEq/L (3.5-4.5); Total Protein 5.4 g/dL (6.0-8.3)
[2017-03-09] MEDS: Pantoprazole 40 MG VIAL IVP SCH (05:28)
[2017-03-09] MEDS ORDERED: 0.9 % Sodium Chloride 2,000 ML ONE (08:07)
[2017-03-09] MEDS: Gabapentin 100 MG CAPSULE PO SCH (08:09)
[2017-03-09] MEDS: Calcium Acetate 667 MG CAPSULE PO SCH ×3 (08:09→17:21)
[2017-03-09 09:00] LABS: Lymphocytes # 1.6 K/mcL (0.6-4.6); Neutrophils # 27.2 K/mcL (1.6-8.9); Toxic Granulation Present (Not Present)
[2017-03-09] MEDS ORDERED: Ascorbic Acid 500 MG TABLET PO SCH (09:00)
[2017-03-09] MEDS ORDERED: Anastrozole 1 MG TABLET PO SCH (09:00)
[2017-03-09 09:03] LABS: Basophilic Stippling 1+ (Not Present); Large Platelets Present (Not Present)
[2017-03-09 09:04] LABS: Anisocytosis 2+ (Not Present); Polychromasia 1+ (Not Present)
[2017-03-09 09:05] LABS: Burr Cells 1+ (Not Present); Platelet Estimate Normal (Normal)
[2017-03-09 09:06] LABS: Nucleated Red Blood Cells 2 /100 WBC (0)
[2017-03-09] MEDS: Budesonide/Formoterol 160/4.5 MDI IH SCH (09:40)
--- NOTE | 2017-03-09 10:38 | Internal Med Progress Note ---
<Addy Marti - Last Filed: 03/09/17 15:56> Date of Encounter: 03/09/17 Time of Encounter: 10:36 - Assessment and plan (1) Leukocytosis Current Visit: Yes Status: Acute Assessment and plan: Elevated WBC today at 31.6 - has been trending up the past 3 days Blood Cx 02/28/17 and 03/07/17 show No Growth No new symptoms today, no fevers Continue to monitor surgical wounds on B/L UE Plan: Repeat Blood Cx Obtain CVC Cx Stool PCR and cultures Qualifiers: Leukocytosis type: unspecified Qualified Code(s): D72.829 - Elevated white blood cell count, unspecified (2) Upper GI bleed Current Visit: Yes Status: Acute Assessment and plan: Hematochezia and Melena prior to admission - received a total of 4 U pRBCs since admission Hgb currently 9.0 - remaining stable EGD 02/28/17 showed dark red blood clots in gastric fundus, but no acute bleed EGD 03/01/17 showed telengectasia cauterized by GI Plan: Continue to monitor Hgb and BMs GI consulted - possible colonoscopy in the future Continue PPI (3) Anemia Current Visit: No Status: Chronic Assessment and plan: Has been stable near 9.0 the past few days 4 U pRBCs since admission Likely secondary chronic disease (Hgb 8-9 is baseline) with acute changes due to GI bleed Plan: Continue to monitor Hgb Transfuse as needed to remain above Hgb 8 Qualifiers: Anemia type: due to chronic kidney disease Chronic kidney disease stage: on chronic dialysis Qualified Code(s): N18.6 - End stage renal disease; D63.1 - Anemia in chronic kidney disease; Z99.2 - Dependence on renal dialysis (4) Hypotension Current Visit: Yes Status: Acute Assessment and plan: Current 80-90s/60s (down to 76/56 this morning) - continue to monitor Metoprolol with hold parameters - HR 62 Qualifiers: Hypotension type: unspecified hypotension type Qualified Code(s): I95.9 - Hypotension, unspecified (5) Pseudoaneurysm of brachial artery Current Visit: Yes Status: Acute Assessment and plan: Bandage in place on left arm - clean, dry, intact, no erythema or warmth Venous study: Pseudoaneurysm in the proximal portion of the patient's shunt containing recalcitrant thrombus despite passage of a balloon through this region multiple times. Surgical revision is recommended. Plan: Vascular surgery consulted - surgery yesterday (6) ESRD (end stage renal disease) on dialysis Current Visit: Yes Status: Chronic Assessment and plan: RUE AV access obtained Right IJ must stay in currently for IV access Plan: Nephrology consulted - appreciate recommendations Continue to monitor Hemodialysis today (7) Chronic a-fib Current Visit: No Status: Chronic Assessment and plan: Currently HR 62, irregular rhythm Metoprolol wiht hold parameters for low BP Continue to monitor (8) Transaminitis Current Visit: Yes Status: Acute Assessment and plan: Increased yesterday - trending down today Switch from percocet to oxycodone Continue to monitor (9) DVT prophylaxis Current Visit: No Status: Acute Assessment and plan: SCDs No anticoagulation due to GI bleed and anemia - Subjective Interval history: Patient seen and examined. She is doing well, but reports feeling very tired. Reports mild cough that has been persistent. Left arm is sore from vascular surgery yesterday. Reports some epigastric pain, that improves after nausea medication. Denies other complaints, denies chest pain, dyspnea, N/V/D, melena, hematochezia, or leg pain/swelling. - Constitutional Vitals: Temp Pulse Resp BP Pulse Ox 97.5 F L 62 18 76/56 100 03/09/17 07:01 03/09/17 07:01 03/09/17 07:01 03/09/17 07:01 03/09/17 07:01 General appearance: Present: A&O X 3, no acute distress, answers questions appropriately - Head Head exam: Present: atraumatic, normocephalic - Eye Eye exam: Present: conjuntiva pink, sclera anicteric - ENT ENT exam: Present: mucous membranes moist - Neck Additional comments: Right IJ in place - clean, dry, intact, no erythema or warmth - Respiratory Respiratory exam: Present: decreased breath sounds. Absent: rales, rhonchi, wheezes - Cardiovascular Cardiovascular exam: Present: irregular rhythm, +S1, +S2. Absent: diastolic murmur, systolic murmur - GI/Abdominal GI/Abdominal exam: Present: normal bowel sounds, soft, tenderness (epigastric). Absent: distended, rigid - Extremities Exam Extremities exam: Present: pedal edema, warm, radial pulses palpable and symmetrical. Absent: tenderness Additional comments: Bandage on left arm clean, dry, intact - no erythema or warmth Bandage on right arm clean, dry, intact - Neurological Exam Neurological exam: Present: alert, CN II-XII intact, oriented X3, no focal deficits - Skin Skin exam: Present: dry, intact Internal Medicine: Result - Labs CBC & Chem 7: 03/09/17 15:03 03/09/17 03:37 Labs: Short CBC 03/09/17 Range/Units 03:37 WBC 31.6 H* D (4.3-11.1) K/mcL Hgb 9.0 L (11.5-15.4) g/dL Hct 29.9 L (35.3-44.9) % Plt Count 178 (140-400) K/mcL Neutrophils # 27.2 H (1.6-8.9) K/mcL BMP 03/09/17 03:37 Sodium 135 L Potassium 4.9 H Chloride 97 L Carbon Dioxide 25 BUN 26 H D Creatinine 3.80 H Glucose 137 H Calcium 8.7 Liver Function 03/09/17 Range/Units 03:37 Total Bilirubin 0.6 (0.2-1.2) mg/dL AST 286 H (5-34) Units/L ALT 182 H (0-55) Units/L Alkaline Phosphatase 116 (38-126) Units/L Albumin 2.2 L (3.5-5.0) g/dL - ABG Interpretation ABG results: PT/INR, D-dimer PT 21.8 Seconds (9.4-12.1) H 03/07/17 03:34 - VTE Documentation of Mechanical Device: Intermittent pneumatic compression device Consult Discharge Plan - Plan Referrals: Brandie Lion MD [Primary Care Provider] - 03/14/17 9:15 am () <Beck Parsons - Last Filed: 03/09/17 18:08> Date of Encounter: 03/09/17 - Assessment and plan (1) Lower gastrointestinal bleed Current Visit: Yes Status: Acute (2) ESRD (end stage renal disease) on dialysis Current Visit: Yes Status: Chronic (3) Atrial fibrillation Current Visit: Yes Status: Chronic Qualifiers: Atrial fibrillation type: paroxysmal Qualified Code(s): I48.0 - Paroxysmal atrial fibrillation (4) Obesity (BMI 30-39.9) Current Visit: No Status: Chronic (5) DVT prophylaxis Current Visit: No Status: Acute - Constitutional Vitals: Temp Pulse Resp BP Pulse Ox 98 F 99 24 130/61 100 03/09/17 12:40 03/09/17 17:00 03/09/17 17:00 03/09/17 17:00 03/09/17 17:00 Internal Medicine: Result - Labs CBC & Chem 7: 03/09/17 15:03 03/09/17 15:16 Labs: Short CBC 03/09/17 03/09/17 Range/Units 03:37 15:03 WBC 31.6 H* D 33.3 H* (4.3-11.1) K/mcL Hgb 9.0 L 8.0 L (11.5-15.4) g/dL Hct 29.9 L 28.0 L (35.3-44.9) % Plt Count 178 95 L (140-400) K/mcL Neutrophils # 27.2 H 26.3 H (1.6-8.9) K/mcL BMP 03/09/17 03/09/17 03:37 15:16 Sodium 135 L 135 L Potassium 4.9 H 5.3 H Chloride 97 L 100 Carbon Dioxide 25 17 L BUN 26 H D 14 D Creatinine 3.80 H 2.41 H Glucose 137 H 317 H Calcium 8.7 6.6 L D Cardiac Enzymes 03/09/17 Range/Units 15:03 Troponin I 0.03 (0-0.03) ng/mL Liver Function 03/09/17 03/09/17 Range/Units 03:37 15:16 Total Bilirubin 0.6 0.6 (0.2-1.2) mg/dL AST 286 H 3569 H (5-34) Units/L ALT 182 H 1409 H (0-55) Units/L Alkaline Phosphatase 116 127 H (38-126) Units/L Albumin 2.2 L 1.4 L D (3.5-5.0) g/dL - ABG Interpretation ABG results: ABG ABG pH 7.09 pH Units (7.32-7.45) L* 03/09/17 17:02 ABG pCO2 38 mmHg (35-45) 03/09/17 17:02 ABG pO2 279 mmHg (85-104) H 03/09/17 17:02 ABG O2 Saturation 100 % (95-98) H 03/09/17 17:02 PT/INR, D-dimer PT 77.2 Seconds (9.4-12.1) H* D 03/09/17 16:13 - Impressions Impressions Abdomen CT 03/09/17 12:22 IMPRESSION: 1. Question of mild diverticulitis of the descending colon. 2. Hepatic steatosis. 3. Small pleural effusions with overlying atelectasis/consolidation, likely chronic. 4. Atrophic, polycystic kidneys. D/ / 03/09/2017 13:44:37 Ethan Fischer MD / davina Interpreting Provider: Ethan Fischer MD Chest X-Ray 03/09/17 16:13 IMPRESSION: 1. Satisfactory position of the endotracheal tube. 2. The proximal side port of the nasogastric tube is in the mid to distal esophagus. Further advancement is recommended. 3. Pulmonary vascular congestion with small pleural effusions. 4. A metallic reticular device overlies the left pulmonary artery, which may be an arterial stent. Correlation with the patient's history is recommended. D/ / 03/09/2017 16:45:14 Ethan Fischer MD / merlin Interpreting Provider: Ethan Fischer MD X-Ray 03/09/17 16:41 IMPRESSION: Enteric tube with tip within the distal esophagus. Advancement of the tube by at least 10 cm is recommended. D/ / Muna Dougherty Cha, MD / Muna Dougherty Cha, MD Interpreting Provider: Muna Dougherty Cha, MD - Attending Attestation I examined this patient and my medical decision-making was reviewed with the Resident Physician. I agree with the documented findings, disposition and treatment plan as described except to the extent set forth below.
--- NOTE | 2017-03-09 11:28 | Nephrology Progress Note ---
Date of Encounter: 03/09/17 Time of Encounter: 11:27 - Assessment and Plan (1) Abdominal pain Current Visit: Yes Status: Acute Patient with abdominal pain of unclear etiology. She was asking for abdominal imaging. I did order a CT of her abdomen with IV contrast oral contrast was held secondary to her nausea with vomiting. Abdominal pain is concerning in the face of rising hepatic enzymes along with a worsening leukocytosis. CT of her abdomen revealed mild diverticulitis. We will defer further management to primary care team. (2) Hypotension Current Visit: Yes Status: Acute Qualifiers: Hypotension type: unspecified hypotension type Qualified Code(s): I95.9 - Hypotension, unspecified (3) ESRD (end stage renal disease) on dialysis Current Visit: Yes Status: Chronic Subjective Principal diagnosis: GI Bleed Interval history: Patient seen twice while on dialysis. She was complaining of abdominal pain. She described it as an epigastric discomfort associated with nausea. She denied chest pain or dyspnea at the time. She was asking to have an x-ray done of her belly. Objective - Vital Signs Vital signs: Vital Signs Temp Pulse Resp BP Pulse Ox 03/09/17 07:01 97.5 F L 62 18 76/56 100 03/09/17 04:24 97.5 F L 56 16 91/57 97 03/09/17 03:54 16 98 03/08/17 23:52 98 F 70 16 94/67 95 03/08/17 22:16 18 100 03/08/17 19:23 97.7 F 66 17 110/73 100 03/08/17 16:20 16 97 03/08/17 16:06 82 14 112/62 93 03/08/17 15:30 75 93/62 98 03/08/17 15:00 72 100/55 96 03/08/17 14:30 80 112/53 95 03/08/17 14:15 88 16 111/60 93 03/08/17 14:00 77 123/59 92 03/08/17 13:45 89 101/62 88 03/08/17 13:30 80 22 114/56 93 03/08/17 13:15 72 20 107/70 92 03/08/17 12:58 97.7 F 76 22 105/57 95 03/08/17 12:45 97.4 F L 83 18 127/52 97 03/08/17 12:35 78 18 122/69 97 03/08/17 12:25 70 18 121/61 95 03/08/17 12:15 97.1 F L 83 16 121/41 96 Intake and Output 03/08/17 03/09/17 03/09/17 23:59 07:59 15:59 Intake Total 100 / 100 120 / 120 Balance 100 / 100 120 / 120 Intake: IV Fluids 100 / 100 Ancef 2,000 MG In 100 / 100 Dextrose 5% 100 ML @ 200 mls/hr IVPB Q8HR [facility] Rx#: [id number] Oral 120 / 120 Other: Meal NPO FOR DINNER Breakfast Percent of Meal Consumed 5% Weight 114.6 kg Patient Weight 03/09/17 23:59 Weight 114.6 kg - General Appearance General appearance: Present: well-developed, well-nourished, obese EENT: Present: ATNC Neck: Present: supple Respiratory: Present: clear (Anteriorly) Cardiology: Present: edema (Trace edema), regular rate, regular rhythm Gastrointestinal: Present: tenderness (Mild epigastric tenderness with no rebound or guarding.), no guarding, obese. Absent: rebound tenderness Integumentary: Present: warm and dry Neurologic: Present: alert and oriented x3 Musculoskeletal: Present: no cyanosis Psychiatric: Present: mood/affect appropriate - Lab 03/09/17 15:03 03/09/17 15:16 Most recent lab results Calcium 8.7 mg/dL (8.6-10.8) 03/09/17 03:37 Phosphorus 3.2 mg/dL (2.3-4.7) 03/08/17 05:15 Magnesium 1.8 mg/dL (1.6-2.6) 03/08/17 05:15 - VTE Documentation of Mechanical Device: Intermittent pneumatic compression device Consult Discharge Plan - Plan Referrals: Brandie Lion MD [Primary Care Provider] - 03/14/17 9:15 am ()
[2017-03-09] MEDS: Norepinephrine 4 MG in D5% in Water 250 ML IVC SCH ×2 (14:30→17:22)
[2017-03-09] MEDS ORDERED: 0.9 % Sodium Chloride 1,000 ML ONE ×2 (14:47→14:58)
[2017-03-09 15:08] LABS: Mean Corpuscular HGB Conc 28.6 g/dL (31.6-35.5); Mean Corpuscular Hemoglobin 29.6 pg (28.0-33.3); Mean Corpuscular Volume 103.7 fL (83.0-100.0); Nucleated Red Blood Cells 15.5 /100 WBC (0)
[2017-03-09 15:09] LABS: Platelet Count 95 K/mcL (140-400)
[2017-03-09] MEDS ORDERED: Vancomycin 1,000 MG in D5% in Water 250 ML IVPB ONE (15:10)
[2017-03-09] MEDS ORDERED: Levofloxacin 750 MG/150 ML 750 MG/150 ML BAG IVPB ONE (15:11)
[2017-03-09] MEDS ORDERED: Piperacillin/Tazobactam 3.375 GM in D5% in Water (Mini-Bag+) 100 ML IVPB SCH (15:11)
[2017-03-09] MEDS ORDERED: Vancomycin 1,500 MG in D5% in Water 250 ML IVPB ONE (15:20)
[2017-03-09] MEDS ORDERED: D5% in Water 250 ML ONE (15:25)
[2017-03-09 15:33] LABS: Neutrophils # 26.3 K/mcL (1.6-8.9)
[2017-03-09 15:34] LABS: Burr Cells 1+ (Not Present)
--- NOTE | 2017-03-09 15:34 | Event Note ---
<Addy Marti R - Last Filed: 03/09/17 15:36> Date of Encounter: 03/09/17 Time of Encounter: 14:40 RN found patient unresponsive. Rapid response initiated. Patient found to have no pulse. Code Blue called and CPR initiated per Code Blue team, asystole on monitor. First dose of Epi given at 1444. Patient has right IJ CVC that was used to deliver medications. Patient was intubated per RT. Dr. Parsons at bedside. Blood sugar was 50 at 1446 and 1 amp of D50 given. Patient still had no pulse and compressions were continued. Second dose of Epi given at 1448. Patient had a pulse and CPR was stopped at 1448. Bag of D10 infused. Femoral pulse confirmed by doppler. Blood glucose was 47 at 1452 and a second amp of D50 was given. Labs were drawn by Dr. Parsons. BP was 65/35. The patient was transferred to ICU bed 6 at 1453. In the ICU blood sugar was 41. One amp of D50 and one amp of Bicarb given. Levophed drip at 40 mcg. D10 at 100cc/hr. Next blood glucose was 172 and D10 was decreased to 50 cc/hr. Dr. Diehl at bedside. One more amp of bicarb was given. <Beck Parsons P - Last Filed: 03/09/17 18:11> Date of Encounter: 03/09/17 I examined this patient and my medical decision-making was reviewed with the Resident Physician. I agree with the documented findings, disposition and treatment plan as described except to the extent set forth below. I was personally present during the code. CODE BLUE was conducted as per ACLS guidelines. Possible reason for cardiac arrest/CODE BLUE/rapid response is persistent hypoglycemia likely secondary to sepsis. The outcome of CODE BLUE was successful in terms of restoring the rhythm and blood pressure along with airway. Case discussed with ICU attending in person and ICU consult was placed. Post CODE BLUE debriefing was done.
[2017-03-09 15:35] LABS: Polychromasia 2+ (Not Present)
[2017-03-09] MEDS ORDERED: 0.9 % Sodium Chloride 500 ML ONE ×2 (15:35→18:25)
[2017-03-09 15:37] LABS: Anisocytosis 3+ (Not Present); Platelet Estimate Decreased (Normal)
[2017-03-09 15:41] LABS: ABG Base Excess -16.1 mEq/L (-2.0 to 3.0); ABG HCO3 13.9 mEQ/L (21-27); ABG Oxygen Saturation 99 % (95-98); ABG PCO2 55 mmHg (35-45); ABG PO2 199 mmHg (85-104); ABG TCO2 15.6 mEq/L (20-26)
[2017-03-09 15:43] LABS: ABG PH 7.01 pH Units (7.32-7.45); Blood Gas FiO2 100 %
[2017-03-09] MEDS ORDERED: EPINEPHrine 5 MG in D5% in Water 250 ML IVC SCH (15:45)
[2017-03-09 16:00] LABS: Albumin/Globulin Ratio 0.7 (1.1-2.2); Bilirubin,Total 0.6 mg/dL (0.2-1.2); Calcium 6.6 mg/dL (8.6-10.8); Globulin 1.9 g/dL (2.4-3.5); Magnesium 1.7 mg/dL (1.6-2.6); Total Protein 3.3 g/dL (6.0-8.3)
[2017-03-09] MEDS ORDERED: Vancomycin 1 EACH in D5% in Water 250 ML IVPB PRN (16:00)
[2017-03-09 16:02] LABS: Albumin 1.4 g/dL (3.5-5.0)
[2017-03-09] MEDS ORDERED: Hydrocortisone Sodium Succ 100 MG/2 ML VIAL ONE (16:02)
[2017-03-09 16:04] LABS: Potassium 5.3 mEq/L (3.5-4.5)
[2017-03-09] MEDS ORDERED: EPINEPHrine 1 MG in D5% in Water 250 ML IVC SCH (16:15)
[2017-03-09] MEDS ORDERED: *HR* Dextrose 50 % in Water (Syg) 50 ML SYRINGE IVP SCH (16:30)
--- NOTE | 2017-03-09 16:31 | Pulmonology Consult Note ---
Date of Encounter: 03/09/17 Time of Encounter: 16:29 Assessment and Plan (1) Cardiac arrest Current Visit: Yes Status: Acute I spent 60min of Critical Care time with this patient. It involved decision making of high complexity to assess, manipulate, and support vital organ system failure and/or to prevent further life threatening deterioration of the patient' s condition. The time involved in the performance of separately reportable procedures was not counted toward critical care time. Neuropsych: Currently she is comatose without spontaneous movement or reflexes ( although she is able to breathe over the vent occasionally) appreciated this is likely the sequelae of undergoing cardiac arrest. Sending for head CT to rule out intracerebral hemorrhage. I have opted not to pursue postarrest cooling protocol because of active bleeding. Pulm: Acute respiratory failure requiring intubation we are adjusting her minute ventilation for severity of respiratory acidosis chest x-ray shows satisfactory placement of endotracheal tube and likely left lower lobe pneumonia opacity which may reflect aspiration during code versus developing pneumonia prior to intubation. We will attempt to ventilate patient with low tidal volume ventilatory strategy given high risk of progression to ARDS although she at present is not demonstrating ARDS physiology. Start ventilator bundle to prevent VAP. Cards: Status post cardiac arrest likely secondary to hypoglycemia complicated by septic shock. She is requiring multiple vasopressors to keep blood MAP goal >60. ECG without clear evidence of STEMI troponin pending although I doubt this is ACS and with active bleeding she would not be a candidate for anticoagulation. Echocardiogram has been ordered. Trend lactate every 6 hours FEN-GI: Nothing by mouth for now . She has had several large bloody bowel movements concerning for active GI extravasation I also have concern for intestinal ischemia sending patient for emergent CT angiogram of the abdomen and pelvis. PPI infusion has been started Renal: ESRD with a new severe metabolic acidosis which is combination of lactic acidosis and non-gap acidosis. Continue to treat underlying causes of shock physiology to treat lactate may need to start continuous renal replacement therapy continue to monitor electrolytes very closely including potassium I discussed the case with the moss bleacher Dr. Padilla ID: Septic shock of unclear etiology possible infection of pseudoaneurysm with seeding of distal location which would suggest an MRSA infection she is being covered with vancomycin for this possible intra-abdominal ischemic colitis being covered with paper Bettina tazobactam and less likely although possible C. difficile colitis for which she is receiving Flagyl blood sputum and urine cultures will be sent [place] antimicrobials based upon speciation and sensitivities. Heme/Onc: Acute gastrointestinal hemorrhage with evidence of DIC fibrinogen less than 50 with bruising at catheter insertion sites transfusing fibrinogen and platelets for this H&H remains greater than 8 at this time but we will trend this every 4 hours Endo: Glucose Monitored and she has severe hypoglycemia for which I started on infusion of dextrose along with the addition of stress dose hydrocortisone to treat for possible adrenal insufficiency of also checked her TSH level Integ/MSK: Skin Care per routine ICU Nursing Protocol to prevent ulcers. Lines: She has a right temporary HD catheter in the internal jugular vein itches in satisfactory position along with a right femoral arterial line and right femoral CVC. Dispo: She will remain in the ICU for critical care management CODE: Full code I updated the patient and family including her next of kin whose name is Micah and daughter Winifred updated them on her critical illness and discussed goals of care and level of aggressiveness that their mother would want in this situation he related that his mother told him that as long as there is something that can be done to save her life she would like that to be performed unless it was futile.The patient is unable or incompetent to participate in giving a history and/or making treatment decisions. The discussion was necessary for determining treatment decision. This discussion took place in the ICU. The total meeting time was 10 minutes (2) Shock Current Visit: Yes Status: Acute (3) Septic shock Current Visit: Yes Status: Acute (4) Gastrointestinal hemorrhage Current Visit: Yes Status: Acute Qualifiers: GI bleed type/associated pathology: unspecified gastrointestinal hemorrhage type Qualified Code(s): K92.2 - Gastrointestinal hemorrhage, unspecified (5) Hypoglycemia Current Visit: Yes Status: Acute (6) Acute respiratory failure Current Visit: Yes Status: Acute Qualifiers: Respiratory failure complication: hypoxia and hypercapnia Qualified Code(s) : J96.01 - Acute respiratory failure with hypoxia; J96.02 - Acute respiratory failure with hypercapnia History of Present Illness Consult date: 03/09/17 Requesting physician: Beck Parsons Reason for consult: other (Cardiac Arrest ) Chief complaint: Cardiac Arrest History of present illness: I was consulted to evaluate this patient status post cardiac arrest. As such all information was gathered from the medical record the internal medicine service who is taking care of the patient the nursing staff and the family along with the medical record. 72-year-old woman who was admitted initially for gastrointestinal hemorrhage thought secondary to telangiectasia evaluated by GI and had undergone electrocautery. Subsequent to procedure H&H had been stable she was transferred out of the ICU at that time to the floor was noted to have a left forearm pseudoaneurysm the day of discharge from the ICU to the general medical floor which underwent resection of left forearm pseudoaneurysm by Dr. Paredes yesterday. She has remained hemodynamically stable while on the floor but today was noted to have increasing abdominal pain while in dialysis. And actually requested that the moss bleacher send her for a "x-ray" a CT of her abdomen and pelvis with contrast was ordered which was essentially unremarkable. Dialysis was terminated early and she was sent back to her medical room for ongoing care. The nurse found the patient unresponsive and a rapid response was initiated and was noted to no palpable pulses and cold blue was initiated. Patient underwent CPR 2 cycles with ROSC (Rhythm was asystole) . Blood glucose was noted to be 47 and 2 A of bicarbonate was given patient was successfully intubated and transferred to the ICU. Patient also received 2 boluses of saline prior to transfer to ICU per nursing report Upon arrival to ICU she remained hypoglycemic and hypotensive additional boluses of dextrose were given along with 2 A of sodium bicarbonate and I inserted a femoral central venous catheter and femoral arterial catheter for hemodynamic monitoring and infusion of medications. She is noted to have oozing of blood around right IJ CVC catheter and she has had 2 medium sized bloody bowel movements. Past Med Surg Social Fam HX - Past Medical History Medical history: arthritis, atrial fibrillation, cancer, CHF, COPD, DVT, GERD, GI bleed, hyperlipidemia, hypertension, malignancy, osteoporosis, renal disease Psychiatric history: no psych history - Past Surgical History Surgical History: breast surgery, pacemaker/AICD, other, vascular surgery (The patient is status post bilateral forearm and upper arm AV shunt creations. In addition the patient is status post previous interventional procedures on the AV shunts.) - Social History Smoking Status: Former smoker Smokeless Tobacco Status: No Alcohol use: rarely Drug use: none - Family History Mother Living Status: Age at : 82 Cause of : diabetes Hx Family Cardiac Disorders: Yes Hx Family Respiratory Disorders: No Hx Family Cancer: Yes Hx Family GI Disorders: No Hx Family Genitourinary Disorders: No Hx Family Endocrine Disorder: No Hx Family Musculoskeletal Disorders: No Hx Family Neuromuscular Disorders: No Hx Family Neurologic Disorders: No Hx Family HEENT Disorders: No Hx Family Autoimmune Disorders: No Hx Family Reproductive Disorders: No Hx Family Psychosocial Disorders: Yes Hx Family Medical Disorders: No Medications and Allergies Anastrozole [Arimidex] 1 mg PO DAILY 04/05/15 [History] Aspirin Enteric Coated [Aspirin EC] 325 mg PO DAILY 04/05/15 [History] Atorvastatin [Lipitor] 10 mg PO HS 04/05/15 [History] Calcium Acetate [Phos-LO] 2,001 mg PO TIDWM 04/05/15 [History] Cinacalcet [Sensipar] 30 mg PO DAILY 04/05/15 [History] Escitalopram [Lexapro] 10 mg PO DAILY 04/05/15 [History] Fluticasone/Salmeterol [Advair 500-50 Diskus] 1 each IH BID 04/05/15 [History] Gabapentin [Neurontin] 100 mg PO BID 04/05/15 [History] Ipratropium/Albuterol Sulfate [Combivent Respimat Inhal [place]] 1 puff IH DAILY 04/05/15 [History] Vitamin B Complex [B Complex] 1 each PO DAILY 04/05/15 [History] Sevelamer [Renvela] 800 mg PO TIDWM 09/14/15 [History] Diltiazem CD (24hr) [Cardizem CD] 120 mg PO DAILY cap.er.24h 03/01/16 [Rx] Metoprolol [Lopressor] 25 mg PO BID tablet 03/01/16 [Rx] Acetaminophen [Tylenol] 650 mg PO Q6H PRN 02/27/17 [History] Amiodarone [Cordarone] 200 mg PO DAILY 02/27/17 [History] Benzonatate [Tessalon] 100 mg PO TID PRN 02/27/17 [History] DiphenhydraMINE [Benadryl] 50 mg PO Q6H PRN 02/27/17 [History] Docusate [Colace] 200 mg PO HS 02/27/17 [History] Ferrous Sulfate 325 mg PO DAILY 02/27/17 [History] GuaiFENesin/Dextromethorphan [Tussin Dm Syrup] 5 ml PO Q4H PRN 02/27/17 [History ] Guaifenesin [Mucinex] 1,200 mg PO Q12H PRN 02/27/17 [History] Ipratropium/Albuterol Neb [Duoneb] 3 ml IH Q6HR 02/27/17 [History] Lidocaine/Prilocaine CREAM [Emla] 1 appl TP ONCE PRN 02/27/17 [History] Loratadine [Claritin] 10 mg PO DAILY 02/27/17 [History] Magnesium Hydroxide [Milk of Magnesia] 2,400 mg PO DAILY PRN 02/27/17 [History] Midodrine HCl 2.5 mg PO BID 02/27/17 [History] Nitroglycerin [Nitrostat] 0.4 mg SL Q5M PRN 02/27/17 [History] OxyCODONE Immed Rel [Roxicodone 5 MG] 5 mg PO Q4H PRN 02/27/17 [History] OxyCODONE Immed Rel [Roxicodone 5 MG] 10 mg PO Q4H PRN 02/27/17 [History] Pantoprazole Sodium [Protonix] 40 mg PO BIDWM 02/27/17 [History] Patiromer Calcium Sorbitex [Veltassa] 8.4 gm PO DAILY 02/27/17 [History] Promethazine [Phenergan] 25 mg PO Q6H PRN 02/27/17 [History] Saliva Substitute Combo No.3 [Aquoral] 2 spray MM BID 02/27/17 [History] 3 Allergy/AdvReac Type Severity Reaction Status Date / Time Erythromycin Base AdvReac Mild Abdominal Verified 02/25/16 09:23 Pain Edetate Calcium Disodium AdvReac See Verified 02/27/17 19:22 Comments Nicardipine AdvReac See Verified 02/27/17 19:22 Comments Warfarin [From Coumadin] AdvReac See Verified 02/27/17 19:22 Comments blood thinners AdvReac Mild Nose Bleed Uncoded 04/05/15 12:13 dihydropyridine AdvReac Mild Abdominal Uncoded 04/05/15 12:13 Pain All Systems: A 10-system review of systems was performed and is negative for pertinent findings except as documented above in the HPI. Physical Examination Vital Signs: Vital Signs, Last 4 Hours Temp Pulse Resp BP 03/09/17 15:00 69 67/55 03/09/17 12:40 98 F 20 104/72 General appearance: comatose Eyes: nonicteric ENT: other (Endotracheal tube in satisfactory position) Inspection: other (She occasionally overbreathing the vent on initial arrival to ICU although and as time has passed she has less triggering of the event and is breathing at the program respiratory rate) Auscultation: bilateral: other (She has breath sounds bilaterally but they are diminished and coarse) Cardiovascular: regular rate and rhythm Gastrointestinal: absent bowel sounds, soft Integumentary: other (She has oozing from right CVC catheter and a diffuse areas of ecchymosis across torso and on all 4 extremities) Extremities: other (She has noted bilateral lower extremity edema) Musculoskeletal: no deformities other (Her right pupil is approximately 5 cm left pupil 3 cm they are both sluggishly reactive she does not have a corneal reflex reflux at present she has roving eye movements she has no spontaneous neurological movement and reflexes cannot be obtained) Ventilator Settings Ventilator Settings: Ventilator Settings, Last 8 Hours Ventilator Mode A/C Ventilator Mode A/C Ventilator Tidal Volume 500 Setting Ventilator Tidal Volume 500 Setting Ventilator Respiratory Rate 14 Setting Ventilator Respiratory Rate 14 Setting Positive End Expiratory 5 Pressure Positive End Expiratory 5 Pressure Results - Laboratory Findings CBC and BMP: 03/09/17 15:03 03/09/17 15:16 ABG ABG pH 7.01 pH Units (7.32-7.45) L* 03/09/17 15:20 ABG pCO2 55 mmHg (35-45) H 03/09/17 15:20 ABG pO2 199 mmHg (85-104) H 03/09/17 15:20 ABG O2 Saturation 99 % (95-98) H 03/09/17 15:20 PT/INR, D-dimer PT 21.8 Seconds (9.4-12.1) H 03/07/17 03:34 Abnormal lab findings: Abnormal lab results WBC 33.3 K/mcL (4.3-11.1) H* 03/09/17 15:03 RBC 2.70 M/mcL (3.82-4.97) L 03/09/17 15:03 Hgb 8.0 g/dL (11.5-15.4) L 03/09/17 15:03 Hct 28.0 % (35.3-44.9) L 03/09/17 15:03 MCV 103.7 fL (83.0-100.0) H 03/09/17 15:03 MCHC 28.6 g/dL (31.6-35.5) L 03/09/17 15:03 RDW 22.0 % (11.5-14.5) H 03/09/17 15:03 Plt Count 95 K/mcL (140-400) L 03/09/17 15:03 Band Neutrophils % 9.0 % (0-4) H 03/09/17 15:03 Metamyelocytes % 1.0 % (0) H 03/09/17 15:03 Myelocytes % 7.0 % (0) H 03/09/17 15:03 Promyelocytes % 1.0 % (0) H 03/09/17 15:03 Neutrophils # 26.3 K/mcL (1.6-8.9) H 03/09/17 15:03 Nucleated RBCs/100 WBC 15.5 /100 WBC (0) H 03/09/17 15:03 Reactive Lymphocytes Present (Not Present) A 03/07/17 03:34 Toxic Granulation Present (Not Present) A 03/09/17 03:37 Platelet Estimate Decreased (Normal) L 03/09/17 15:03 Large Platelets Present (Not Present) A 03/09/17 03:37 Polychromasia 2+ (Not Present) A 03/09/17 15:03 Hypochromasia Present (Not Present) A 02/28/17 00:45 Basophilic Stippling 1+ (Not Present) A 03/09/17 03:37 Anisocytosis 3+ (Not Present) A 03/09/17 15:03 Microcytosis Present (Not Present) A 02/28/17 00:45 Hayes Cells 1+ (Not Present) A 03/09/17 15:03 PT 21.8 Seconds (9.4-12.1) H 03/07/17 03:34 ABG pH 7.01 pH Units (7.32-7.45) L* 03/09/17 15:20 ABG pCO2 55 mmHg (35-45) H 03/09/17 15:20 ABG pO2 199 mmHg (85-104) H 03/09/17 15:20 ABG HCO3 13.9 mEQ/L (21-27) L 03/09/17 15:20 ABG Total CO2 15.6 mEq/L (20-26) L 03/09/17 15:20 ABG O2 Saturation 99 % (95-98) H 03/09/17 15:20 ABG Base Excess -16.1 mEq/L (-2.0 to 3.0) L 03/09/17 15:20 Sodium 135 mEq/L (136-145) L 03/09/17 15:16 Potassium 5.3 mEq/L (3.5-4.5) H 03/09/17 15:16 Carbon Dioxide 17 mEq/L (19-29) L 03/09/17 15:16 Creatinine 2.41 mg/dL (0.57-1.11) H 03/09/17 15:16 Est GFR ( Amer) 24 (> 60) L 03/09/17 15:16 Est GFR (Non-Af Amer) 20 (> 60) L 03/09/17 15:16 Glucose 317 mg/dL (70-99) H 03/09/17 15:16 POC Glucose 38 (58-89) L* 03/09/17 16:00 Lactic Acid 14.1 mmol/L (0.5-2.2) H* 03/09/17 15:23 Calcium 6.6 mg/dL (8.6-10.8) L D 03/09/17 15:16 Iron 24 mcg/dL (50-170) L 03/01/17 11:25 Transferrin 116 mg/dL (180-382) L 03/01/17 11:25 Ferritin 9740 ng/ml (5-204) H 03/01/17 11:25 AST 3569 Units/L (5-34) H 03/09/17 15:16 ALT 1409 Units/L (0-55) H 03/09/17 15:16 Alkaline Phosphatase 127 Units/L (38-126) H 03/09/17 15:16 Serum Total Protein 3.3 g/dL (6.0-8.3) L D 03/09/17 15:16 Albumin 1.4 g/dL (3.5-5.0) L D 03/09/17 15:16 Globulin 1.9 g/dL (2.4-3.5) L 03/09/17 15:16 Albumin/Globulin Ratio 0.7 (1.1-2.2) L 03/09/17 15:16 Triglycerides 193 mg/dL (< 150) H 02/28/17 00:45 VLDL Cholesterol, Calc 39 mg/dL (< 31) H 02/28/17 00:45 HDL Cholesterol 21 mg/dL (40-59) L 02/28/17 00:45 Stool Occult Blood Positive (Negative) A 02/28/17 01:50 - Microbiology Findings Microbiology Findings: Microbiology, Last 48 Hours 03/07/17 10:08 Blood Culture - Preliminary Peripheral Venipuncture No growth. 03/07/17 10:06 Blood Culture - Preliminary Peripheral Venipuncture No growth. - Clinical Findings Intake & Output: Intake & Output 03/09/17 03/09/17 03/09/17 07:59 15:59 23:59 Intake Total 100 / 100 720 / 720 Output Total 2751 / 2751 Balance 100 / 100 -2031 / -2031 Weight 114.6 kg Consult Discharge Plan - Plan Referrals: Brandie Lion MD [Primary Care Provider] - 03/14/17 9:15 am ()
[2017-03-09 17:11] LABS: ABG Base Excess -17.1 mEq/L (-2.0 to 3.0); ABG HCO3 11.5 mEQ/L (21-27); ABG Oxygen Saturation 100 % (95-98); ABG PCO2 38 mmHg (35-45); ABG PO2 279 mmHg (85-104); ABG TCO2 12.7 mEq/L (20-26)
[2017-03-09 17:15] LABS: ABG PH 7.09 pH Units (7.32-7.45); Blood Gas FiO2 100 %
[2017-03-09] MEDS ORDERED: Pantoprazole 40 MG in 0.9 % Sodium Chloride Mini Bag 100 ML IVC SCH (17:15)
[2017-03-09 17:34] LABS: INR 6.9; Prothrombin Time 77.2 Seconds (9.4-12.1)
[2017-03-09] MEDS ORDERED: Lacri-Lube 3.5 GM TUBE BOTH EYES PRN (17:34)
[2017-03-09] MEDS ORDERED: Magnesium Sulfate 2 GM in D5% in Water 100 ML IVPB ONE (18:02)
[2017-03-09] MEDS ORDERED: Calcium Gluconate 1,000 MG in D5% in Water 100 ML IVPB ONE (18:02)
--- NOTE | 2017-03-09 18:27 | Event Note ---
Date of Encounter: 03/09/17 Time of Encounter: 18:23 Patient's clinical status continues to deteriorate she is nearly maxed out on 2 vasopressors and worsening metabolic acidosis continues to show signs of active bleeding overall prognosis extremely poor filled cardiopulmonary resuscitation would not offer any therapeutic advantage I discussed this with the family and they are in complete agreement CODE STATUS changed to reflect this
[2017-03-09] MEDS ORDERED: Sodium Bicarbonate 150 MEQ in D5% in Water 1,000 ML IVC SCH (18:30)
[2017-03-09] MEDS ORDERED: Vasopressin 40 UNIT in D5% in Water 100 ML IV SCH (18:30)
--- NOTE | 2017-03-09 18:50 | Procedure Note ---
Date of procedure: 03/09/17 Surgeon: Vikram Chavez Procedures: Internal Med - Arterial Line Consent Obtained: verbal consent Time out performed: Yes Size (Gauge): 20 Technique used: other (Under Direct Ultrasound guidance) Post-Procedure: line sutured into place, dry sterile dressing placed Patient tolerated procedure: well, no complications Site: right, femoral - Central Line Placement Right Femoral Consent Obtained: verbal consent Time out performed: Yes Patient placed on monitor/pulse ox: Yes MD prep: mask, gown, gloves Central line prep: Chlorhexidine scrub Ultrasound used for placement: Yes Central line lumen inserted: triple Post Procedure: sutured in place, good blood return, all ports aspirated, flushed, capped, sterile dressing applied, dark venous blood, biodisk applied Patient tolerated procedure: well, no complications
[2017-03-09 18:54] LABS: Hematocrit 27.2 % (35.3-44.9); Hemoglobin 7.5 g/dL (11.5-15.4)
[2017-03-09 18:59] LABS: Thyroid Stimulating Hormone 4.573 mcIU/mL (0.350-4.840)
[2017-03-09 19:07] VITALS: BP 94/50
[2017-03-09] MEDS ORDERED: Aminoglycoside Consult 1 EACH MC ONE (19:24)
--- NOTE | 2017-03-09 19:29 | Death Note ---
Discharge Sum: Summary - Date and Time Date of admission: 02/27/17 17:44 Date of : 03/09/17 Time of : 19:25 - Summary Details: Patient was a 72 yo female wiht PMHx of a fib and on aspirin plavix, ESRD with dialysis on MWF. Patient was initially admitted on 02/27/17 for lower GI bleed. Patient had been having black tarry stools and then axel red blood per rectum, was transferred from [facility] where she was initially found to be hypotensive, was given fluids. Patient was started on PPI therapy here with frequent Hgb checks, transfusions PRN for Hgb <8, blood thinners stopped after discussion with family, and GI consulted. Dialysis held due to hypotension. Patient had intermittent episodes of hypotension and Hgb <8 , and was transferred to ICU for further BP monitoring and transfusions. EGD on 02/28/17 showed normal esophaguse, red lood in gastric antrum funds and body, nromal duodenum. Repeat EGD performed by GI on 03/01/17 showed normal esophagus, old blodo in gastric body, nonbleeding telangectasias in the stomach that were treated with argon plasma cogaulation, and a normal duodenum. Recommendation was to continue PPI and advance diet. Patient was eventually placed on Heavenly due to uermia and fluid overload. Hgb and BP stablized after transfusions, patient was placed on iron supplements. Patient was transferred back to floor to hospitalist team. Patient then had episode of large bloody BM on 03/05/17. GI notified and colonoscopy planned. Patient had received 4 tranfusions at that point. Patient began having elevation in WBC, blood cx showed no growth, and no new symptoms, no fevers. Blood cultures repeated by hospitalist team, along with CVC cx and stool PCR and culture. Hgb and BP continued to be monitored. CT without contrast abd and pelvis on 03/09 showed: 1. Question of mild diverticulitis of the descending colon. 2. Hepatic steatosis. 3. Small pleural effusions with overlying atelectasis/consolidation, likely chronic. 4. Atrophic, polycystic kidneys. On 03/09/17 patient was found unresponsive with no pulse, asystole on monitor, patient was CODED with 2 rounds of CPR and 2 epi, and intubated. Glucose was found to be low, and she was given amps of bicarb and D50, started on levophed drip and transferred to ICU. Head CT and CTA abd pelvis was ordered. CT head was negative for any acute intracranial abnormality. CTA abd pelvis on 03/09/17: IMPRESSION: 1. Suspected small bleed in the proximal sigmoid colon. Alternatively, this may be high density fecal matter within a colonic diverticula, although, a bleed is favored. 2. 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 The SMA is the dominant blood flow to the mesentery, although, is severely diseased. 3. Hepatic steatosis. 4. Small pleural effusions with overlying atelectasis/consolidation, likely chronic. 5. Atrophic, polycystic kidneys. On stringer up soldering machine exam, patient was comatose without spontaneous movement or reflexes but was breathing over the event. Severe metabolic acidosis on labs, bicarb given and drip ordered. CT head was negative for intracranial abnormality. Low tidal volumes used in case of progression to ARDS due to new LL opacity that may have been aspiration during code. Patent was requiring three pressors to keep MAP >60 (epi, levo, vaso). Vanc, soyzn, levaquin was continued due to possible septic shock picture as well, although etiology not clear, cultures ordered. Patient was started on dextrose infusion for hypoglycemia long with stress dose steroids. INR and PT elevated, fibrinogen was low. FFP and cryo was ordered for coagulapathy. Dr. Chavez discussed severity of case with family, and they changed code status to DNR CCA. Upon my arrival to ICU at 7pm, patient was critical. BP in 60s/30s, maxed on three pressors. Family decided to stop any further care, and pressors were stopped. Patient was pronounced at 19:25 with no spontaneous breathing, no pulse, no cardiac activity on stethoscope exam, and pupils dilated and fixed. Family was present at bedside. Nursing staff contacted wrapping machine operator and services. Dr. Cifuentes was assigned designated signer of certificate per nursing staff. - Additional Data Confirmation of as documented by pronouncing clinician: no pulse, no respirations, no heart sounds, pupils fixed and dilated Family: at bedside Attending/PCP notified?: Yes Attending physician: Dr. Cifuentes Was code activated?: No Autopsy requested?: No polygraph examiner notified?: Yes Organ bank notified?: No Advance directives: Yes (DNRCCA) Hospice patient?: No Discharge Sum: Diag - PCOD Probable Cause of : Septic shock Discharge Sum: Prov - Provider Primary care physician: Brandie Lion MD Admitting clinician: Beck Parsons Attending physician on admission: Beck Parsons Consults: 02/28/17 13:14 Consult to Pulmonology [CONS] Routine Consulting Provider: Pulm Crit Care & Sleep Josette Reason for Consult: Hypotension, GIB Time Notified: 13:15 Call Completed: Yes 03/08/17 17:45 Consult to Dialysis [CONS] ONCE 03/09/17 15:34 Consult to Critical Care [CONS] Stat Consulting Provider: Pulm Crit Care & Sleep Adrian Reason for Consult: Code Blue and resusitation - transfer to ICU 6 Time Notified: 15:00 Call Completed: Yes - Attending Attestation I examined this patient and my medical decision-making was reviewed with the Resident Physician. I agree with the documented findings, disposition and treatment plan as described except to the extent set forth below.
[2017-03-09] MEDS ORDERED: Lacri-Lube 3.5 GM TUBE BOTH EYES SCH (20:00)
[2017-03-09] MEDS ORDERED: Chlorhexidine Rinse 15 ML MOUTHWASH MM SCH (21:00)
[2017-03-10] MEDS ORDERED: MetroNIDAZOLE 500 MG/100 ML 500 MG/100 ML BAG IVPB SCH
[2017-03-10] MEDS ORDERED: Hydrocortisone Sodium Succ 100 MG/2 ML VIAL IVP SCH
[2017-03-10] MEDS ORDERED: Levofloxacin 500 MG/100 ML 500 MG/100 ML BAG IVPB SCH (16:00)
--- NOTE | 2017-03-12 13:50 | Electrocardiograph Report ---
[address] [id number] Test Date: 2017-03-09 Pat Name: Kaelyn Murphy Department: 109 Room: [facility] Gender: F Mortgage Processing Clerk: JON : [id number] Requested By: Nannette Howard Order Number: [id number] Reading MD: Genoveva Gonzalez Measurements Intervals [place] Rate: 73 P: [place]: 0 QRS: 118 QRSD: 205 T: -10 QT: 510 QTc: 536 Interpretive Statements ATRIAL FLUTTER/FIBRILLATION RIGHT BUNDLE BRANCH BLOCK NONSPECIFIC ST-T ABNORMALITIES Electronically Signed On 03-12-2017 13:48:55 EDT by Genoveva Gonzalez
== END 2017-03-09 19:25 | disposition expired | DRG 356 ==
LOC: 2ANU → SUATTDRO 17:44 → ICNU 02-28 07:25 → 2ANU 03-06 12:11 → ICNU 03-09 14:57
PROVIDERS: ADMIT Internal Medicine; ATTEND Internal Medicine Pulmonary Disease